=== PATIENT | female | born 1950 | race Caucasian/White ===

== ENCOUNTER → 2017-09-16 11:36 | Outpatient (CLI) | payer MEDICARE, SELFPAY ==
[2017-09-16 12:11] LABS: Add Manual Diff / Slide Review NO; Basophils Percent Auto 0.8 % (0-2); Eosinophils Percent Auto 1.5 % (2-4); Hematocrit 44.1 % (36-46); Hemoglobin 14.4 g/dL (12.0-16.0); Lymphocytes Percent Auto 20.6 % (25-40); Mean Corpuscular HGB Conc 32.7 % (30-36); Mean Corpuscular Hemoglobin 26.3 PG (26-34); Mean Corpuscular Volume 80.3 fL (80-100); Monocytes Percent Auto 6.8 % (3-14); Neutrophils Absolute Auto 6200 /uL (3000-5900); Neutrophils Percent Auto 70.3 % (50-75); Platelet Count 168 X10^3/uL (150-400); Red Blood Cell Count 5.49 X10^6/uL (4.0-5.2); Red Cell Distribution Width 18.3 % (11.6-14.8); White Blood Cell Count 8.8 X10^3/uL (4.5-11.0)
[2017-09-16 13:17] LABS: Alanine Aminotransferase 26 IU/L (9-52); Albumin 4.1 g/dL (3.5-5.0); Albumin Globulin Ratio 1.5 (1.0-2.8); Alkaline Phosphatase 100 U/L (38-126); Aspartate Aminotransferase 16 IU/L (14-36); Bilirubin Total 0.6 mg/dL (0.2-1.3); Calcium 9.4 mg/dL (8.4-10.2); Estimated Glomerular Filt Rate > 60.0 mL/min (>60); Globulin 2.7 g/dL (1.7-4.1); Glucose 120 mg/dL (80-110); HEMOLYSIS < 15 (0-50); Potassium 4.7 mmol/L (3.4-5.1); Sodium 141 mmol/L (137-145); Total Protein 6.8 g/dL (6.3-8.2)
== END ==
PROVIDERS: PCP Family Medicine; Visit Provider Nurse Practitioner Gerontology
DX: D68.59 Other primary thrombophilia (principal); D68.61 Antiphospholipid syndrome
CPT/HCPCS: 36415; 80053; 85025

== ENCOUNTER → 2017-11-05 14:31 | Outpatient (CLI) | payer MEDICARE, SELFPAY | PROVIDERS: PCP Family Medicine; Visit Provider Family Medicine | DX: E61.1 Iron deficiency (principal); E11.9 Type 2 diabetes mellitus without complications ==

== ENCOUNTER → 2017-11-06 11:39 | Outpatient (CLI) | payer MEDICARE, SELFPAY ==
[2017-11-06 12:01] LABS: Add Manual Diff / Slide Review NO; Basophils Percent Auto 1.4 % (0-2); Eosinophils Percent Auto 2.1 % (2-4); Hematocrit 45.7 % (36-46); Hemoglobin 14.9 g/dL (12.0-16.0); Lymphocytes Percent Auto 27.5 % (25-40); Mean Corpuscular HGB Conc 32.7 % (30-36); Mean Corpuscular Hemoglobin 27.7 PG (26-34); Mean Corpuscular Volume 84.7 fL (80-100); Monocytes Percent Auto 6.9 % (3-14); Neutrophils Absolute Auto 5800 /uL (3000-5900); Neutrophils Percent Auto 62.1 % (50-75); Platelet Count 161 X10^3/uL (150-400); Red Blood Cell Count 5.39 X10^6/uL (4.0-5.2); Red Cell Distribution Width 16.4 % (11.6-14.8); White Blood Cell Count 9.3 X10^3/uL (4.5-11.0)
[2017-11-06 12:17] LABS: Hemoglobin A1C% w Est Avg Glu 6.5 % (4.0-6.0)
[2017-11-06 12:24] LABS: HEMOLYSIS < 15 (0-50); Iron 67 ug/dL (37-170)
[2017-11-06 12:26] LABS: Creatinine Urine Random 91.5 mg/dL
[2017-11-06 12:32] LABS: Microalbumi Creatinin Ratio Ur 6.5 ug/mg CR (<30); Microalbumin Urine Random < 0.6 mg/dL (0-1.6)
[2017-11-06 12:34] LABS: Percent Iron Saturation 20 % (15-50); Total Iron Binding Capacity 340 ug/dL (265-497); Transferrin 274 mg/dL (206-381)
[2017-11-06 13:00] LABS: Ferritin 15.8 ng/mL (11.1-264)
== END ==
PROVIDERS: PCP Family Medicine; Visit Provider Family Medicine
DX: E61.1 Iron deficiency (principal); E11.9 Type 2 diabetes mellitus without complications
CPT/HCPCS: 36415; 82043; 82570; 82728; 83036; 83540; 83550; 85025

== ENCOUNTER → 2018-02-07 14:39 | Outpatient (CLI) | payer MEDICARE, SELFPAY ==
[2018-02-07 15:21] LABS: Add Manual Diff / Slide Review NO; Basophils Percent Auto 1.1 % (0-2); Eosinophils Percent Auto 1.8 % (2-4); Hematocrit 47.9 % (36-46); Hemoglobin 15.6 g/dL (12.0-16.0); Lymphocytes Percent Auto 18.8 % (25-40); Mean Corpuscular HGB Conc 32.5 % (30-36); Mean Corpuscular Hemoglobin 28.3 PG (26-34); Monocytes Percent Auto 6.6 % (3-14); Neutrophils Absolute Auto 6600 /uL (3000-5900); Neutrophils Percent Auto 71.7 % (50-75); Platelet Count 180 X10^3/uL (150-400); Red Blood Cell Count 5.51 X10^6/uL (4.0-5.2); Red Cell Distribution Width 14.2 % (11.6-14.8); White Blood Cell Count 9.2 X10^3/uL (4.5-11.0)
[2018-02-07 15:31] LABS: HEMOLYSIS 17 (0-50); Iron 74 ug/dL (37-170)
[2018-02-07 15:33] LABS: Hemoglobin A1C% w Est Avg Glu 6.6 % (4.0-6.0)
[2018-02-07 15:38] LABS: Creatinine Urine Random 104.9 mg/dL
[2018-02-07 15:42] LABS: Percent Iron Saturation 21 % (15-50); Total Iron Binding Capacity 353 ug/dL (265-497); Transferrin 302 mg/dL (206-381)
[2018-02-07 15:43] LABS: Microalbumi Creatinin Ratio Ur 12.3 ug/mg CR (<30); Microalbumin Urine Random 1.3 mg/dL (0-1.6)
[2018-02-07 16:15] LABS: Ferritin 20.5 ng/mL (11.1-264)
== END ==
PROVIDERS: PCP Family Medicine; Visit Provider Family Medicine
DX: E61.1 Iron deficiency (principal); E11.9 Type 2 diabetes mellitus without complications
CPT/HCPCS: 36415; 82043; 82570; 82728; 83036; 83540; 83550; 85025

== ENCOUNTER → 2018-05-10 11:55 | Outpatient (CLI) | payer MEDICARE, SELFPAY ==
[2018-05-10 12:42] LABS: Add Manual Diff / Slide Review NO; Basophils Absolute Auto 100 /uL (0-100); Basophils Percent Auto 0.8 % (0-2); Eosinophils Absolute Auto 200 /uL (0-450); Eosinophils Percent Auto 1.8 % (2-4); Hematocrit 50.8 % (36-46); Hemoglobin 16.4 g/dL (12.0-16.0); Lymphocytes Absolute Auto 2500 /uL (1100-4500); Lymphocytes Percent Auto 25.2 % (25-40); Mean Corpuscular HGB Conc 32.4 % (30-36); Mean Corpuscular Hemoglobin 28.2 PG (26-34); Mean Corpuscular Volume 87.2 fL (80-100); Monocytes Absolute Auto 600 /uL (0-900); Neutrophils Absolute Auto 6600 /uL (1500-7000); Neutrophils Percent Auto 66.2 % (50-75); Platelet Count 196 X10^3/uL (150-400); Red Blood Cell Count 5.82 X10^6/uL (4.0-5.2); White Blood Cell Count 9.9 X10^3/uL (4.5-11.0)
[2018-05-10 12:43] LABS: Hemoglobin A1C% w Est Avg Glu 6.9 % (4.0-6.0)
[2018-05-10 12:52] LABS: Alanine Aminotransferase 34 IU/L (9-52); Albumin 4.4 g/dL (3.5-5.0); Albumin Globulin Ratio 1.5 (1.0-2.8); Alkaline Phosphatase 94 U/L (38-126); Aspartate Aminotransferase 20 IU/L (14-36); Bilirubin Total 0.7 mg/dL (0.2-1.3); Blood Urea Nitrogen 11 mg/dL (7-17); Calcium 9.3 mg/dL (8.4-10.2); Carbon Dioxide 31 mmol/L (22-32); Chloride 102 mmol/L (98-107); Cholesterol 190 mg/dL (140-199); Estimated Glomerular Filt Rate > 60.0 mL/min (>60); Glucose 181 mg/dL (80-110); HDL Cholesterol 47 mg/dL (40-60); HEMOLYSIS < 15 (0-50); LDL Cholesterol Calculated 112 mg/dL (<100); Potassium 4.5 mmol/L (3.4-5.1); Sodium 141 mmol/L (137-145); Total Protein 7.4 g/dL (6.3-8.2); Triglycerides 156 mg/dL (35-150)
== END ==
PROVIDERS: PCP Family Medicine; Visit Provider Family Medicine
DX: E11.9 Type 2 diabetes mellitus without complications (principal); E55.9 Vitamin D deficiency, unspecified; E66.9 Obesity, unspecified; E78.5 Hyperlipidemia, unspecified; I10 Essential (primary) hypertension; R73.02 Impaired glucose tolerance (oral)
CPT/HCPCS: 36415; 80053; 80061; 82728; 83036; 85025

== ENCOUNTER → 2018-07-28 12:29 | Outpatient (CLI) | payer MEDICARE, SELFPAY ==
[2018-07-28 13:17] LABS: Hemoglobin A1C% w Est Avg Glu 6.5 % (4.0-6.0)
== END ==
PROVIDERS: PCP Family Medicine; Visit Provider Family Medicine
DX: E11.9 Type 2 diabetes mellitus without complications (principal)
CPT/HCPCS: 36415; 83036

== ENCOUNTER → 2018-09-12 10:59 | Outpatient (CLI) | payer MEDICARE, SELFPAY ==
--- NOTE | 2018-09-12 | DI.MG.S_ITS ---
BILATERAL DIGITAL SCREENING MAMMOGRAM 3D/2D WITH CAD: 09/12/2018 CLINICAL: Routine screening. Family history of breast cancer. Comparison is made to exams dated: 08/21/2017 mammogram, 08/27/2015 mammogram, and 08/15/2015 mammogram - [facility]. The tissue of both breasts is predominantly fatty. Current study was also evaluated with a Computer Aided Detection (CAD) system. No significant masses, calcifications, or other findings are seen in either breast. There has been no significant interval change. IMPRESSION: NEGATIVE There is no mammographic evidence of malignancy. A 1 year screening mammogram is recommended. This exam was interpreted at Station ID: [id number]. NOTE: For mammograms, a report in lay terms will be sent to the patient. Approximately 15% of breast malignancies will not be visualized mammographically. In the management of a palpable breast mass, a negative mammogram must not discourage biopsy of a clinically suspicious lesion. Electronically Signed By: Armin morgan/trell:09/12/2018 12:03:51 letter sent: Normal Exam ACR BI-RADS Category 1: Negative [id number]
== END ==
PROVIDERS: PCP Family Medicine; Visit Provider Family Medicine
DX: Z12.31 Encounter for screening mammogram for malignant neoplasm of breast (principal); Z80.3 Family history of malignant neoplasm of breast
CPT/HCPCS: 77063; 77067

== ENCOUNTER → 2019-01-06 07:00 | Outpatient (CLI) | payer MEDICARE, SELFPAY ==
[2019-01-06 07:45] LABS: Add Manual Diff / Slide Review NO; Basophils Absolute Auto 100 /uL (0-100); Basophils Percent Auto 0.7 % (0-2); Eosinophils Absolute Auto 200 /uL (0-450); Eosinophils Percent Auto 2.2 % (2-4); Hematocrit 44.6 % (36-46); Hemoglobin 14.8 g/dL (12.0-16.0); Lymphocytes Absolute Auto 2100 /uL (1100-4500); Lymphocytes Percent Auto 21.1 % (25-40); Mean Corpuscular HGB Conc 33.2 % (30-36); Mean Corpuscular Hemoglobin 28.8 PG (26-34); Mean Corpuscular Volume 86.7 fL (80-100); Monocytes Absolute Auto 900 /uL (0-900); Monocytes Percent Auto 8.5 % (3-14); Neutrophils Absolute Auto 6800 /uL (1500-7000); Neutrophils Percent Auto 67.5 % (50-75); Platelet Count 174 X10^3/uL (150-400); Red Blood Cell Count 5.15 X10^6/uL (4.0-5.2); Red Cell Distribution Width 13.5 % (11.6-14.8); White Blood Cell Count 10.1 X10^3/uL (4.5-11.0)
[2019-01-06 07:52] LABS: Hemoglobin A1C% w Est Avg Glu 6.5 % (4.0-6.0)
[2019-01-06 08:03] LABS: Blood Urea Nitrogen 12 mg/dL (7-17); Calcium 9.3 mg/dL (8.4-10.2); Carbon Dioxide 30 mmol/L (22-32); Chloride 101 mmol/L (98-107); Estimated Glomerular Filt Rate > 60.0 mL/min (>60); Glucose 144 mg/dL (80-110); HEMOLYSIS < 15 (0-50); Potassium 4.3 mmol/L (3.4-5.1); Sodium 140 mmol/L (137-145)
== END ==
PROVIDERS: PCP Family Medicine; Visit Provider Family Medicine
DX: D68.61 Antiphospholipid syndrome (principal); E11.9 Type 2 diabetes mellitus without complications; I10 Essential (primary) hypertension; R71.8 Other abnormality of red blood cells
CPT/HCPCS: 36415; 80048; 83036; 85025

== ENCOUNTER → 2019-06-10 12:03 | Outpatient (CLI) | payer MEDICARE, SELFPAY ==
[2019-06-10 13:06] LABS: Alanine Aminotransferase 21 IU/L (<35); Albumin 4.2 g/dL (3.5-5.0); Albumin Globulin Ratio 1.6 (1.0-2.8); Alkaline Phosphatase 93 U/L (38-126); Aspartate Aminotransferase 19 IU/L (14-36); BUN Creatinine Ratio 27.5 (6-22); Bilirubin Total 0.4 mg/dL (0.2-1.3); Blood Urea Nitrogen 11 mg/dL (7-17); Calcium 9.5 mg/dL (8.4-10.2); Carbon Dioxide 32 mmol/L (22-32); Chloride 103 mmol/L (98-107); Cholesterol 178 mg/dL (140-199); Estimated Glomerular Filt Rate > 60.0 mL/min (>60); Globulin 2.6 g/dL (1.7-4.1); Glucose 166 mg/dL (80-110); HDL Cholesterol 51 mg/dL (40-60); HEMOLYSIS < 15 (0-50); LDL Cholesterol Calculated 106 mg/dL (<100); Potassium 4.9 mmol/L (3.4-5.1); Sodium 141 mmol/L (137-145); Total Protein 6.8 g/dL (6.3-8.2); Triglycerides 105 mg/dL (35-150)
== END ==
PROVIDERS: PCP Family Medicine; Referring Provider Family Medicine; Visit Provider Family Medicine
DX: E78.5 Hyperlipidemia, unspecified (principal); E11.9 Type 2 diabetes mellitus without complications
CPT/HCPCS: 36415; 80053; 80061

== ENCOUNTER → 2019-09-09 10:20 | Outpatient (CLI) | payer MEDICARE, SELFPAY ==
[2019-09-09 11:00] LABS: Hemoglobin A1C% w Est Avg Glu 7.2 % (4.0-6.0)
[2019-09-09 11:06] LABS: Cholesterol 172 mg/dL (140-199); HDL Cholesterol 39 mg/dL (40-60); LDL Cholesterol Calculated 106 mg/dL (<100); Triglycerides 134 mg/dL (35-150)
[2019-09-09 13:18] LABS: Add Manual Diff / Slide Review NO; Basophils Absolute Auto 100 /uL (0-100); Basophils Percent Auto 0.8 % (0-2); Eosinophils Absolute Auto 200 /uL (0-450); Eosinophils Percent Auto 2.3 % (2-4); Hematocrit 44.3 % (36-46); Hemoglobin 14.8 g/dL (12.0-16.0); Lymphocytes Absolute Auto 2500 /uL (1100-4500); Mean Corpuscular HGB Conc 33.4 % (30-36); Mean Corpuscular Hemoglobin 29.1 PG (26-34); Mean Corpuscular Volume 87.3 fL (80-100); Monocytes Absolute Auto 600 /uL (0-900); Monocytes Percent Auto 6.4 % (3-14); Neutrophils Absolute Auto 6600 /uL (1500-7000); Neutrophils Percent Auto 65.5 % (50-75); Platelet Count 173 X10^3/uL (150-400); Red Blood Cell Count 5.08 X10^6/uL (4.0-5.2); Red Cell Distribution Width 13.2 % (11.6-14.8); White Blood Cell Count 10.1 X10^3/uL (4.5-11.0)
[2019-09-11 18:03] LABS: Ferritin 34 ng/mL (11-264)
== END ==
PROVIDERS: PCP Family Medicine; Referring Provider Family Medicine; Visit Provider Family Medicine
DX: E11.9 Type 2 diabetes mellitus without complications (principal); E66.9 Obesity, unspecified; E78.5 Hyperlipidemia, unspecified; I10 Essential (primary) hypertension; R71.8 Other abnormality of red blood cells; D68.61 Antiphospholipid syndrome; K92.1 Melena
CPT/HCPCS: 36415; 80061; 82728; 83036; 85025

== ENCOUNTER → 2019-10-17 10:15 | Outpatient (CLI) | payer MEDICARE, SELFPAY ==
[2019-10-17 11:10] LABS: Add Manual Diff / Slide Review NO; Basophils Absolute Auto 100 /uL (0-100); Basophils Percent Auto 1.3 % (0-2); Eosinophils Absolute Auto 300 /uL (0-450); Hematocrit 46.2 % (36-46); Hemoglobin 15.5 g/dL (12.0-16.0); Lymphocytes Absolute Auto 2000 /uL (1100-4500); Mean Corpuscular HGB Conc 33.5 % (30-36); Mean Corpuscular Hemoglobin 29.3 PG (26-34); Mean Corpuscular Volume 87.7 fL (80-100); Monocytes Absolute Auto 800 /uL (0-900); Monocytes Percent Auto 7.8 % (3-14); Neutrophils Absolute Auto 6800 /uL (1500-7000); Neutrophils Percent Auto 67.9 % (50-75); Platelet Count 177 X10^3/uL (150-400); Red Blood Cell Count 5.27 X10^6/uL (4.0-5.2); Red Cell Distribution Width 13.3 % (11.6-14.8); White Blood Cell Count 9.9 X10^3/uL (4.5-11.0)
[2019-10-17 11:21] LABS: HEMOLYSIS < 15 (0-50); Iron 106 ug/dL (37-170)
[2019-10-17 11:31] LABS: D Dimer 428 ng/mL (<230)
[2019-10-17 11:32] LABS: Percent Iron Saturation 31 % (15-50); Total Iron Binding Capacity 337 ug/dL (265-497); Transferrin 245 mg/dL (206-381)
== END ==
PROVIDERS: PCP Family Medicine; Referring Provider Family Medicine; Visit Provider Family Medicine
DX: D68.61 Antiphospholipid syndrome (principal); K92.1 Melena; R71.8 Other abnormality of red blood cells; D50.9 Iron deficiency anemia, unspecified; R06.00 Dyspnea, unspecified
CPT/HCPCS: 36415; 83540; 83550; 85025; 85379

== ENCOUNTER 2019-11-17 16:17 | Emergency (ER) | payer MEDICARE, SELFPAY ==
[2019-11-17] VITALS (14 sets, daily range): BP systolic 123–151; BP diastolic 56–64; PULSE 69–83; RESP 17–41; TEMP 36.7; O2SAT 89–97; BMI 39.1
--- NOTE | 2019-11-17 16:25 | DI.RAD.S_ITS ---
PROCEDURE: XR CHEST 1V INDICATIONS: chest pain TECHNIQUE: One view of the chest was acquired. COMPARISON: [facility], , CHEST 2 VIEW, 10/16/2013, 15:09. [facility], , CHEST 1 VIEW, 11/05/2011, 12:26. FINDINGS: Surgical changes and devices: None. Lungs and pleura: Lungs are mildly edematous. No pleural effusions or pneumothorax. Mediastinum: Mediastinal contours appear normal. Heart size is globally enlarged. Bones and chest wall: No suspicious bony lesions. Overlying soft tissues appear unremarkable. IMPRESSION: Acute exacerbation of chronic CHF pattern. Dictated by: Daniel Herman M.D. on 11/17/2019 at 17:15 Approved by: Daniel Herman M.D. on 11/17/2019 at 17:15
[2019-11-17 16:57] LABS: Prothrombin Time 11.5 SECONDS (10.1-12.7)
[2019-11-17 17:00] LABS: PTT Partial Thromboplastin Tim 33 SECONDS (26.4-36.2)
[2019-11-17 17:02] LABS: Add Manual Diff / Slide Review NO; Alanine Aminotransferase 19 IU/L (<35); Albumin 4.2 g/dL (3.5-5.0); Albumin Globulin Ratio 1.5 (1.0-2.8); Alkaline Phosphatase 78 U/L (38-126); Aspartate Aminotransferase 25 IU/L (14-36); BUN Creatinine Ratio 27.8 (6-22); Basophils Absolute Auto 100 /uL (0-100); Basophils Percent Auto 1.2 % (0-2); Bilirubin Total 0.7 mg/dL (0.2-1.3); Blood Urea Nitrogen 10 mg/dL (7-17); Calcium 9.3 mg/dL (8.4-10.2); Carbon Dioxide 36 mmol/L (22-32); Chloride 101 mmol/L (98-107); Creatine Kinase 30 U/L (30-135); Eosinophils Absolute Auto 200 /uL (0-450); Eosinophils Percent Auto 2.1 % (2-4); Estimated Glomerular Filt Rate > 60.0 mL/min (>60); Globulin 2.8 g/dL (1.7-4.1); Glucose 140 mg/dL (80-110); Hematocrit 44.8 % (36-46); Hemoglobin 14.7 g/dL (12.0-16.0); Lipase 40 U/L (23-300); Lymphocytes Absolute Auto 2300 /uL (1100-4500); Lymphocytes Percent Auto 21.9 % (25-40); Mean Corpuscular HGB Conc 32.8 % (30-36); Mean Corpuscular Hemoglobin 28.7 PG (26-34); Mean Corpuscular Volume 87.4 fL (80-100); Monocytes Absolute Auto 700 /uL (0-900); Monocytes Percent Auto 6.4 % (3-14); Neutrophils Absolute Auto 7100 /uL (1500-7000); Neutrophils Percent Auto 68.4 % (50-75); Platelet Count 159 X10^3/uL (150-400); Potassium 4.6 mmol/L (3.4-5.1); Red Blood Cell Count 5.13 X10^6/uL (4.0-5.2); Red Cell Distribution Width 13.5 % (11.6-14.8); Sodium 138 mmol/L (137-145); White Blood Cell Count 10.3 X10^3/uL (4.5-11.0)
[2019-11-17 17:05] LABS: HEMOLYSIS 71 (0-50)
[2019-11-17 17:15] LABS: Troponin I < 0.012 ng/mL (0.01-0.034)
--- NOTE | 2019-11-17 17:23 | PC.NURSE ---
Patient reports pressure in chest and difficulty breathing has subsided since application of 1LNC oxygen. Denies chest pressure at this time
--- NOTE | 2019-11-17 17:49 | ED_ITS ---
HPI - SOB/Dyspnea General Chief Complaint: Shortness of Breath/Dyspnea Stated Complaint: trouble breathing,fluid in lungs sent by her doc Time Seen by Provider: 11/17/19 17:48 Source: patient Mode of arrival: Ambulatory History of Present Illness HPI Narrative: CC: Shortness of breath burning of her lips and throat closing off after DuoNeb breathing treatment in Dr. Gregorio's office. HPI: The patient is a 68-year-old female who was sent to the emergency department from Dr. Gregorio's office after she was administered DuoNeb breathing treatment. The patient developed burning of her lips and a feeling that her throat was swelling and closing off which she has never experienced before. She takes DuoNeb breathing treatments at home which are generic without any problems. The patient has a history of asthma and COPD and has been short of breath for the last 2 weeks prior to admission. She only coughs when she is receiving a breathing treatment. She feels exhausted and tired as if she has no energy. For the last 3 weeks she has not been taking her home DuoNeb breathing treatments because her doctor prescribed an inhaled steroid in her nebulizer. She thought that she was supposed to be taking the steroid without taking her DuoNeb breathing treatments. The patient states that she has a family history of congestive heart failure but has never been told that she has congestive heart failure herself. She denies a history of myocardial infarction or hypertension but has a history of diabetes mellitus. She has had intermittent chest pain for the last 2 weeks prior to admission. She has no chest pain at the present time. Her cough has been dry and nonproductive of any sputum. She has had intermittent sweats but no fever chills or headache. She denies any abdominal pain nausea vomiting or diarrhea. She has had no urinary symptoms. She quit smoking cigarettes 6 years ago. She does not drink alcohol and smokes marijuana once or twice per week. At the present time the patient is feeling much better than she did on admission and in the office. Related Data Home Medications Medication Instructions Recorded Confirmed calcium carbonate [Calcium 600] 600 mg PO DAILY 09/17/17 11/17/19 coenzyme Q10 [CoQ-10] 100 mg PO DAILY 09/17/17 11/17/19 cyanocobalamin (vitamin B-12) 1,000 mcg PO DAILY 09/17/17 11/17/19 [Vitamin B-12] ferrous sulfate [Iron (ferrous 325 mg PO EVERY OTHER DAY 09/17/17 11/17/19 sulfate)] omega-3 fatty acids 1,000 mg 1,000 mg PO DAILY 11/12/17 11/17/19 capsule diphenhydramine HCl 25 mg capsule 25 mg PO BEDTIME PRN 07/29/18 11/17/19 Previous Rx's Medication Instructions Recorded ipratropium 0.5 mg-albuterol 3 mg 3 ml INHALATION Q4HP PRN #270 ea 05/25/19 (2.5 mg base)/3 mL nebulization soln nebulizers #1 each 06/08/19 pravastatin 20 mg tablet 20 mg PO BEDTIME #90 tab 06/12/19 triamcinolone acetonide 0.1 % 1 applictn TOP BID #15 gram 06/16/19 topical cream sertraline 50 mg tablet 100 mg PO QDAY #180 tab 09/11/19 budesonide 0.5 mg/2 mL suspension 0.5 mg INHALATION BID #120 ml 09/28/19 for nebulization lorazepam 0.5 mg tablet 0.5 mg PO TIDP PRN #90 tab 10/30/19 albuterol sulfate 90 mcg/actuation 2 puff INHALATION .Q 4 hours PRN 11/03/19 aerosol inhaler #6.7 gram albuterol sulfate 2.5 mg INHALATION Q4H PRN #90 ml 11/17/19 furosemide [Lasix] 20 mg PO QAM #20 tab 11/17/19 potassium chloride 20 meq PO DAILY #20 each 11/17/19 Allergies Allergy/AdvReac Type Severity Reaction Status Date / Time aspartame Allergy Severe rash, Verified 11/17/19 16:22 throat 'closes off' ibuprofen Allergy Severe FEELS LIKE Verified 11/17/19 16:22 THROAT CLOSES, RASH latex Allergy Severe SEVERE RASH Verified 11/17/19 16:22 orange Allergy Severe SWELLING - Verified 11/17/19 16:22 MANDERIAN cephalexin Allergy Mild severe Verified 11/17/19 16:22 vomiting and diarrhea pneumococcal vaccine Allergy Mild local skin Verified 11/17/19 16:22 [PNEUMOCOCCAL VACCINE] reaction tetanus immune globulin Allergy Mild LOCALIZED Verified 11/17/19 16:22 SWELLING, RASH tetanus toxoid, adsorbed AdvReac Severe SWELLING Verified 11/17/19 16:22 OF EXT, RASH bupropion AdvReac Mild UNCONTROLABLE Verified 11/17/19 16:22 CRYING nickel AdvReac Mild ITCHY RASH Verified 11/17/19 16:22 WITH METAL JEWELRY adhesive AdvReac Unknown RASH Verified 11/17/19 16:22 flu shot Allergy Mild local Uncoded 11/17/19 16:22 reaction-skin red Review of Systems Review of Systems Narrative: Her review of systems were all negative except for those mentioned in the history of present illness. Patient History Medical History Abnormal CXR (chest x-ray) (Chronic 2014) Antiphospholipid antibody syndrome (Chronic 2014) Anxiety (Chronic 1967) Asthma (Chronic 2013) Cataract (Resolved 2014) COPD (chronic obstructive pulmonary disease) (Chronic 2013) Eczema (Chronic 1964) Foot pain (Chronic) Fractures (Resolved 1975) Gastrointestinal hemorrhage (07/02/14) GI bleeding (Resolved 2014) History of heavy periods (Resolved 1991) Measles (Resolved ~1955) Mumps (Resolved ~1955) Edgerton-Schlatter's disease of both lower extremities (Resolved) Painful menstrual periods (Resolved 1991) Pancreatic pseudocyst (Acute) Pancreatitis (Resolved 2003) Psoriasis (Chronic 1973) Pulmonary embolism (Resolved 05/2014) Pulmonary thromboembolism (07/02/14) Rubella (Resolved ~1955) Shoulder pain (Chronic 1979) Tobacco use disorder (Resolved 10/26/13) Type 2 diabetes mellitus without complication, without long-term current use of insulin (05/22/16) Surgical History Anesthesia (Resolved) History of cataract surgery (Resolved 2014) History of tonsillectomy (Resolved 1955) S/P insertion of IVC (inferior vena caval) filter (Resolved 05/2014) Status post delivery (Resolved 1974) Status post delivery (Resolved 1984) Status post delivery (Resolved 1987) Status post hysterectomy (Resolved 1993) Status post laparoscopic cholecystectomy (Resolved 2006) Family History Father Lung cancer Heart disease Mother Cancer Diabetes mellitus Heart disease Grandfather MVA (motor vehicle accident) Grandmother MVA (motor vehicle accident) Grandfather No problems noted. Grandmother No problems noted. Social History Smoking Status: Former smoker Smoking Status: Former smoker Exam Narrative Exam Narrative: PHYSICAL EXAM: CONSTITUTIONAL: Awake, Alert, Oriented, Coherent, Cooperative in NAD. Does not appear toxic or ill. HEAD: AT/NC EENT: PERRL, FROM of eyes, no discharge, no nystagmus NOSE:No epistaxis or nasal drainage MOUTH:Oral mucosa is moist and pink, posterior pharynx is without erythema or exudate. There is no erythema or swelling of her lips. NECK: Supple, no obvious JVD, Trachea is midline without stridor, no palpable LN. The patient has a short neck SPINE: Palpationof the cervical, Thoracic, Lumbar or Sacral spine reveals no gross deformity or tenderness. No CVA tenderness. THORAX: No deformity, retractions, chest wall tenderness. LUNGS: The patient has inspiratory crackles in the lower 1/3 of each lung field posterior. There is no wheezes or rhonchi appreciated. HEART: Normal heart tones, regular rhythm and rate without murmur. ABDOMEN: Soft, non-tender, normal bowel sounds without guarding, rebound, rigidity or palpable mass. EXTREMITIES: There is no calf tenderness but there is 1+ pitting edema SKIN: No rash, bruising, petechiae or purpura. NEURO: Awake, alert, oriented, conversive, cranial nerves II-XII are symmetrical , moves all 4 extremities and is ambulatory. MENTAL HEALTH: Does not appear anxious or depressed. The patient appears much more comfortable. Initial Vital Signs Initial Vital Signs: Vital Signs Temperature 98.1 F 11/17/19 16:22 Pulse Rate 83 11/17/19 16:22 Respiratory Rate 18 11/17/19 16:22 Blood Pressure 151/62 H 11/17/19 16:22 Pulse Oximetry 91 11/17/19 16:22 Course Course Course Narrative: 1739: CXR revealedIMPRESSION: Acute exacerbation of chronic CHF pattern. 1936: The patient feels much better and will be discharged home. Orders Ordered: Discontinued Medications Furosemide (Lasix) 40 mg IV NOW ONE Stop: 11/17/19 18:01 Last Admin: 11/17/19 18:08 Dose: 40 mg Documented by: RMARTIN Methylprednisolone (Solu-Medrol 125 Mg Vial) 125 mg IV NOW ONE Stop: 11/17/19 18:02 Last Admin: 11/17/19 18:11 Dose: 125 mg Documented by: KIERA Vital Signs Vital signs: Vital Signs - 8 hr 11/17/19 16:22 11/17/19 16:27 11/17/19 16:30 Temperature 98.1 F Pulse Rate 83 79 78 Respiratory Rate 18 22 Blood Pressure 151/62 H Pulse Oximetry 91 93 94 11/17/19 16:31 11/17/19 17:00 11/17/19 17:03 Temperature Pulse Rate 76 76 75 Respiratory Rate 20 24 23 Blood Pressure 135/62 129/62 Pulse Oximetry 94 92 93 11/17/19 17:30 11/17/19 17:31 Temperature Pulse Rate 76 76 Respiratory Rate 23 24 Blood Pressure 125/58 L Pulse Oximetry 93 92 MDM - SOB/Dyspnea Medical Records Attestation: I reviewed the patient's medical records. Lab Data Attestation: I reviewed the patient's lab results. Result diagrams: 11/17/19 16:40 11/17/19 16:40 Labs: Lab Results 11/17/19 11/17/19 11/17/19 Range/Units 16:40 16:40 16:40 WBC 10.3 (4.5-11.0) X10^3/uL RBC 5.13 (4.0-5.2) X10^6/uL Hgb 14.7 (12.0-16.0) g/dL Hct 44.8 (36-46) % MCV 87.4 (80-100) fL MCH 28.7 (26-34) PG MCHC 32.8 (30-36) % RDW 13.5 (11.6-14.8) % Plt Count 159 (150-400) X10^3/uL Neut % (Auto) 68.4 (50-75) % Lymph % (Auto) 21.9 L (25-40) % [place] % (Auto) 6.4 (3-14) % Eos % (Auto) 2.1 (2-4) % Baso % (Auto) 1.2 (0-2) % Neut # (Auto) 7100 H (7326-2206) /uL Lymph # (Auto) 2300 (0543-5899) /uL [place] # (Auto) 700 (0-900) /uL Eos # (Auto) 200 (0-450) /uL Baso # (Auto) 100 (0-100) /uL PT 11.5 (10.1-12.7) SECONDS INR 1.0 (0.9-1.3) APTT 33 (26.4-36.2) SECONDS Sodium 138 (137-145) mmol/L Potassium 4.6 (3.4-5.1) mmol/L Chloride 101 (98-107) mmol/L Carbon Dioxide 36 H (22-32) mmol/L BUN 10 (7-17) mg/dL Creatinine 0.36 L (0.52-1.04) mg/dL Estimated GFR > 60.0 (>60) mL/min BUN/Creatinine Ratio 27.8 H (6-22) Glucose 140 H (80-110) mg/dL Calcium 9.3 (8.4-10.2) mg/dL Total Bilirubin 0.7 (0.2-1.3) mg/dL AST 25 (14-36) IU/L ALT 19 (<35) IU/L Alkaline Phosphatase 78 (38-126) U/L Total Creatine Kinase 30 (30-135) U/L CK-MB (CK-2) TNP CK-MB (CK-2) Rel Index TNP Troponin I < 0.012 (0.01-0.034) ng/mL NT-Pro-B Natriuret Pep (<125) pg/mL Total Protein 7.0 (6.3-8.2) g/dL Albumin 4.2 (3.5-5.0) g/dL Globulin 2.8 (1.7-4.1) g/dL Albumin/Globulin Ratio 1.5 (1.0-2.8) Lipase 40 (23-300) U/L // Range/Units 16:40 WBC (4.5-11.0) X10^3/uL RBC (4.0-5.2) X10^6/uL Hgb (12.0-16.0) g/dL Hct (36-46) % MCV (80-100) fL MCH (26-34) PG MCHC (30-36) % RDW (11.6-14.8) % Plt Count (150-400) X10^3/uL Neut % (Auto) (50-75) % Lymph % (Auto) (25-40) % [place] % (Auto) (3-14) % Eos % (Auto) (2-4) % Baso % (Auto) (0-2) % Neut # (Auto) (4542-8749) /uL Lymph # (Auto) (1659-8611) /uL [place] # (Auto) (0-900) /uL Eos # (Auto) (0-450) /uL Baso # (Auto) (0-100) /uL PT (10.1-12.7) SECONDS INR (0.9-1.3) APTT (26.4-36.2) SECONDS Sodium (137-145) mmol/L Potassium (3.4-5.1) mmol/L Chloride (98-107) mmol/L Carbon Dioxide (22-32) mmol/L BUN (7-17) mg/dL Creatinine (0.52-1.04) mg/dL Estimated GFR (>60) mL/min BUN/Creatinine Ratio (6-22) Glucose (80-110) mg/dL Calcium (8.4-10.2) mg/dL Total Bilirubin (0.2-1.3) mg/dL AST (14-36) IU/L ALT (<35) IU/L Alkaline Phosphatase (38-126) U/L Total Creatine Kinase (30-135) U/L CK-MB (CK-2) CK-MB (CK-2) Rel Index Troponin I (0.01-0.034) ng/mL NT-Pro-B Natriuret Pep 164 H (<125) pg/mL Total Protein (6.3-8.2) g/dL Albumin (3.5-5.0) g/dL Globulin (1.7-4.1) g/dL Albumin/Globulin Ratio (1.0-2.8) Lipase (23-300) U/L ECG Data Attestation: I personally reviewed and interpreted this ECG as follows: Interpretation: The patient's EKG obtained at 4:28 p.m. reveals a normal sinus rhythm with a ventricular rate of 77. Intervals are normal except for the QRS is prolonged at 128 milliseconds. QTC is prolonged at 488 milliseconds. The patient has right axis deviation. There is no acute diagnostic ST segment fercho nges. The patient has T-wave inversions in leads V1. Patient has biphasic T- wave in V2. The patient has a noisy baseline with artifact in V3 and V6. T- waves are flat in lead III. The patient has a right bundle branch block pattern. Discharge Plan Departure Patient Disposition: Home Clinical Impression: Anxiety, COPD exacerbation Dyspnea Qualifiers: Dyspnea type: shortness of breath Qualified Code(s): R06.02 - Shortness of breath CHF (congestive heart failure) Qualifiers: Heart failure type: unspecified Heart failure chronicity: unspecified Qualified Code(s): I50.9 - Heart failure, unspecified Pulmonary edema Qualifiers: Chronicity: acute Qualified Code(s): J81.0 - Acute pulmonary edema Discharge Date/Time: 11/17/19 20:17 Instructions: DI for Heart Failure, DI for Chronic Obstructive Pulmonary Disease Activity Restrictions/Additional Instructions: 1. Follow-up with your primary care physician to be re-evaluated in the next 48- 72 hours. 2. Return to the emergency department if you develop worsening shortness of breath, chest pain, feeling faint, passing out, developing high fever or persistent nausea and vomiting such that you are unable to keep her medications down. 3. Take your DuoNeb breathing treatment every 4-6 hours. 4. Take the inhaled steroid per your nebulizer as prescribed by Dr. Gregorio 5. For continued shortness of breath, wheezing or coughing in between your DuoNeb breathing treatments and steroid treatments you can take albuterol as needed every 2-4 hours. 6. As shown when you develop swelling of your ankles with pitting take 20 mg of Lasix and 20 mEq of potassium chloride. When you do not have any pitting of your legs stop taking the Lasix. If you are taking the Lasix you must limit your fluid intake to 2 L per day. 7. Return at any time to the emergency department. Prescriptions: New albuterol sulfate 2.5 mg /3 mL (0.083 %) solution for nebulization 2.5 mg INHALATION Q4H PRN (Reason: shortness of breath or wheezing) Qty: 90 RF: 0 furosemide [Lasix] 20 mg tablet 20 mg PO QAM Qty: 20 RF: 1 potassium chloride 20 mEq packet 20 meq PO DAILY Qty: 20 RF: 1 No Action ipratropium-albuterol 0.5 mg-3 mg(2.5 mg base)/3 mL solution for nebulization 3 ml Inhalation Q4HP PRN (Reason: wheezing) Qty: 270 RF: 2 (DME) AeroEclipse II Nebulizer Misc See Rx Instructions .ROUTE .MEDSUPPLY Qty: 1 RF: 0 triamcinolone acetonide 0.1 % cream 1 applictn TOP BID Qty: 15 RF: 0 budesonide 0.5 mg/2 mL suspension for nebulization 0.5 mg INHALATION BID Qty: 120 RF: 1 lorazepam [Ativan] 0.5 mg tablet 0.5 mg PO TIDP PRN (Reason: anxiety) Qty: 90 RF: 0 albuterol sulfate [Proventil HFA] 90 mcg/actuation HFA aerosol inhaler 2 puff Inhalation .Q 4 hours PRN (Reason: shortness of breath) Qty: 6.7 RF: 3 omega-3 fatty acids [Fish Oil Concentrate] 1,000 mg capsule 1,000 mg PO DAILY RF: 0 diphenhydramine HCl [Benadryl] 25 mg capsule 25 mg PO BEDTIME PRNRF: 0 pravastatin 20 mg tablet 20 mg PO BEDTIME Qty: 90 RF: 3 sertraline 50 mg tablet 100 mg PO QDAY Qty: 180 RF: 4 cyanocobalamin (vitamin B-12) [Vitamin B-12] 1,000 mcg Tablet 1,000 mcg PO DAILY RF: 0 coenzyme Q10 [CoQ-10] 100 mg Capsule 100 mg PO DAILY RF: 0 calcium carbonate [Calcium 600] 600 mg calcium (1,500 mg) Tablet 600 mg PO DAILY RF: 0 ferrous sulfate [Iron (ferrous sulfate)] 325 mg (65 mg iron) Tablet 325 mg PO EVERY OTHER DAY RF: 0 Referrals: Jaleesa Gregorio DO [Primary Care Provider] -
[2019-11-17] MEDS: FUROSEMIDE 40 MG/4 ML VIAL IV (18:08)
[2019-11-17] MEDS: methylPREDNISolone 125 MG/2 ML VIAL IV (18:11)
[2019-11-17 18:18] LABS: NT-proBNP (BNP-Adult 18+) 164 pg/mL (<125)
== END 2019-11-17 20:17 | disposition home or self-care (01) ==
PROVIDERS: Emergency Provider Emergency Medicine; PCP Family Medicine
DX: I50.9 Heart failure, unspecified (principal); J44.1 Chronic obstructive pulmonary disease with (acute) exacerbation; R06.00 Dyspnea, unspecified; F41.9 Anxiety disorder, unspecified; J81.0 Acute pulmonary edema
CPT/HCPCS: 36415; 71045; 80053; 82550; 83690; 83880; 84484; 85025; 85610; 85730; 93005; 96374; 96375; 99284; 99285; J1940; J2930

== ENCOUNTER → 2019-12-14 14:49 | Outpatient (CLI) | payer MEDICARE, SELFPAY ==
--- NOTE | 2019-12-14 14:52 | DI.MG.S_ITS ---
BILATERAL DIGITAL SCREENING MAMMOGRAM 3D/2D WITH CAD: 12/14/2019 CLINICAL: Routine screening. Family history of breast cancer. Comparison is made to exams dated: 09/12/2018 mammogram, 08/21/2017 mammogram, and 08/15/2015 mammogram - [facility]. The tissue of both breasts is predominantly fatty. Current study was also evaluated with a Computer Aided Detection (CAD) system. No significant masses, calcifications, or other findings are seen in either breast. There has been no significant interval change. IMPRESSION: NEGATIVE There is no mammographic evidence of malignancy. A 1 year screening mammogram is recommended. This exam was interpreted at Station ID: [id number]. NOTE: For mammograms, a report in lay terms will be sent to the patient. Approximately 15% of breast malignancies will not be visualized mammographically. In the management of a palpable breast mass, a negative mammogram must not discourage biopsy of a clinically suspicious lesion. Electronically Signed By: Claribel carroll/trell:12/14/2019 15:44:56 letter sent: Normal Exam ACR BI-RADS Category 1: Negative [id number]
== END ==
PROVIDERS: PCP Family Medicine; Referring Provider Family Medicine; Visit Provider Family Medicine
DX: Z12.31 Encounter for screening mammogram for malignant neoplasm of breast (principal); Z80.3 Family history of malignant neoplasm of breast
CPT/HCPCS: 77063; 77067

== ENCOUNTER → 2020-01-05 15:45 | Outpatient (CLI) | payer MEDICARE, SELFPAY ==
--- NOTE | 2020-01-05 16:29 | DI.ECHO.S_ITS ---
Echocardiogram Report + + :Name: EARNESTINE QUINTANILLA Study Date: 01/05/2020 Height: 64 in : :[facility] Weight: 221 lb : : Gender: Female BSA: 2.0 m2 : :: 1950 Age: 69 yrs BP: 152/77 mmHg: :Reason For Study: HEART FAILURE : : Performed By: Adia Broderick : :Referring: ADRIANA JOYA : + + Interpretation Summary 1) Normal left ventricular size, thickness, and systolic function (EF 60-65%). 2) The right ventricle is mildly dilated. Right ventricular systolic function is mildly reduced. 3) Mild aortic stenosis present (valve area 1.6cm2, mean gradient 8mmHg, severity ratio 0.6). 4) The right ventricular systolic pressure is estimated to be at least 49 mmHg based on an estimated right atrial pressure of 3 mm Hg. 5) Compared to the Echo done 06/04/2014, systolic PA pressures has decreased from 115mmHg to 49mmHg on this study. Procedure: A two-dimensional transthoracic echocardiogram with color flow and Doppler was performed. The study quality was technically adequate. Comparison is made with the echocardiogram of 06/04/2014. The patient had a bundle branch block rhythm during the exam. The patient was in normal sinus rhythm during the exam. Left Ventricle: The left ventricle is normal in size. There is normal left ventricular wall thickness. The ejection fraction is estimated to be 60-65%. There are no obvious focal wall motion abnormalities noted but poor endocardial definition reduces the sensitivity for the detection of such. The interventricular septum is flattened, consistent with a right ventricular pressure overload condition. Right Ventricle: The right ventricle is mildly dilated. Right ventricular systolic function is mildly reduced. Atria: There is mild biatrial enlargement. Mitral Valve: There is mild mitral annular calcification. There is trace mitral regurgitation. Aortic Valve: The aortic valve is not well visualized. There is mild aortic stenosis. No aortic regurgitation is present. Tricuspid Valve: The tricuspid valve is not well visualized, but is grossly normal. There is trace tricuspid regurgitation. The right ventricular systolic pressure is estimated to be at least 49 mmHg based on an estimated right atrial pressure of 3 mm Hg. Pulmonic Valve: The pulmonic valve is not well visualized. There is a trace or physiologic amount of pulmonic regurgitation. Great Vessels: The aortic root is not well visualized but is probably normal size. The ascending aorta is normal in size. The aortic arch could not be visualized. The IVC is of normal diameter and collapses greater than 50% with a sniff. This suggests a low right atrial pressure of 3 mm Hg. Pericardium/ Pleura There is no pericardial effusion. MMode/2D Measurements & Calculations LVIDd: 5.2 cm LVOT diam: 1.7 cm LVIDs: 3.7 cm asc Aorta Diam: 3.0 cm FS: 27.5 % IVSd: 0.87 cm LVPWd: 0.78 cm LV caal. diameter/BSA (cm/m^2): 2.5 LV sys. diameter/BSA (cm/m^2): 1.8 LA A2 area: 20.7 cm2 RA long axis: 5.6 cm LA A4 area: 20.0 cm2 RA area: 19.9 cm2 LA length (vol): 5.9 cm RA vol: 60.7 ml LA vol: 59.4 ml RA : 29.7 ml/m2 LA vol index: 29.1 ml/m2 IVC diam: 2.1 cm RVD1 (basal): 3.8 cm RVD2 (mid): 2.7 cm TAPSE: 2.5 cm Doppler Measurements & Calculations Ao V2 max: 192.1 cm/sec LVOT Max Neymar: 130.3 cm/sec Ao V2 mean: 139.5 cm/sec LV V1 max P.8 mmHg Ao max P.8 mmHg LV V1 VTI: 27.9 cm Ao mean P.3 mmHg JUSTIN(I,D): 1.4 cm2 Ao V2 VTI: 46.6 cm JUSTIN(V,D): 1.6 cm2 sev ratio: 0.60 JUSTIN indexed to BSA (cm^2/m^2): 0.68 MV E max neymar: 84.7 cm/sec TR max neymar: 337.9 cm/sec MV A max neymar: 81.5 cm/sec TR max P.7 mmHg MV E/A: 1.0 PA V2 max: 109.9 cm/sec Med Peak E' Neymar: 5.5 cm/sec PA V2 mean: 72.2 cm/sec E/E' med: 15.3 PA mean P.3 mmHg Lat Peak E' Neymar: 8.6 cm/sec PA Accel Time: 0.08 sec E/E' lat: 9.8 E/e' average: 12.6 MV dec time: 0.19 sec MV P1/2t: 57.1 msec MV P1/2t max neymar: 84.3 cm/sec SV(LVOT): 64.6 ml MVA(P1/2t): 3.9 cm2 Reading Physician:10:19 AM
== END ==
PROVIDERS: PCP Family Medicine; Referring Provider Family Medicine; Visit Provider Family Medicine
DX: I35.0 Nonrheumatic aortic (valve) stenosis (principal); I50.9 Heart failure, unspecified; J44.1 Chronic obstructive pulmonary disease with (acute) exacerbation
CPT/HCPCS: 93306

== ENCOUNTER → 2020-01-25 12:38 | Outpatient (CLI) | payer MEDICARE, SELFPAY ==
[2020-01-25 13:43] LABS: Add Manual Diff / Slide Review NO; Basophils Absolute Auto 100 /uL (0-100); Basophils Percent Auto 1.1 % (0-2); Eosinophils Absolute Auto 400 /uL (0-450); Eosinophils Percent Auto 3.5 % (2-4); Hematocrit 46.2 % (36-46); Lymphocytes Absolute Auto 1900 /uL (1100-4500); Lymphocytes Percent Auto 16.9 % (25-40); Mean Corpuscular HGB Conc 32.5 % (30-36); Mean Corpuscular Hemoglobin 28.4 PG (26-34); Mean Corpuscular Volume 87.2 fL (80-100); Monocytes Absolute Auto 700 /uL (0-900); Monocytes Percent Auto 6.4 % (3-14); Neutrophils Absolute Auto 7900 /uL (1500-7000); Neutrophils Percent Auto 72.1 % (50-75); Platelet Count 176 X10^3/uL (150-400); Red Blood Cell Count 5.29 X10^6/uL (4.0-5.2); Red Cell Distribution Width 13.7 % (11.6-14.8)
[2020-01-25 13:52] LABS: Alanine Aminotransferase 18 IU/L (<35); Albumin 4.1 g/dL (3.5-5.0); Albumin Globulin Ratio 1.6 (1.0-2.8); Alkaline Phosphatase 99 U/L (38-126); Aspartate Aminotransferase 18 IU/L (14-36); BUN Creatinine Ratio 31.1 (6-22); Bilirubin Total 0.7 mg/dL (0.2-1.3); Blood Urea Nitrogen 14 mg/dL (7-17); Calcium 9.2 mg/dL (8.4-10.2); Carbon Dioxide 30 mmol/L (22-32); Chloride 102 mmol/L (98-107); Cholesterol 174 mg/dL (140-199); Estimated Glomerular Filt Rate > 60.0 mL/min (>60); Globulin 2.6 g/dL (1.7-4.1); Glucose 181 mg/dL (80-110); HDL Cholesterol 51 mg/dL (40-60); HEMOLYSIS 17 (0-50); LDL Cholesterol Calculated 95 mg/dL (<100); Sodium 138 mmol/L (137-145); Total Protein 6.7 g/dL (6.3-8.2); Triglycerides 139 mg/dL (35-150)
[2020-01-25 14:05] LABS: Hemoglobin A1C% w Est Avg Glu 7.3 % (4.0-6.0)
== END ==
PROVIDERS: PCP Family Medicine; Referring Provider Family Medicine; Visit Provider Family Medicine
DX: D50.9 Iron deficiency anemia, unspecified (principal); E11.9 Type 2 diabetes mellitus without complications; E78.5 Hyperlipidemia, unspecified; I10 Essential (primary) hypertension; J44.9 Chronic obstructive pulmonary disease, unspecified
CPT/HCPCS: 36415; 80053; 80061; 83036; 85025

== ENCOUNTER → 2020-05-18 11:53 | Outpatient (CLI) | payer MEDICARE, SELFPAY ==
[2020-05-18 12:21] LABS: Hemoglobin A1C% w Est Avg Glu 7.4 % (4.0-6.0)
[2020-05-18 12:43] LABS: BUN Creatinine Ratio 34.3 (6-22); Blood Urea Nitrogen 12 mg/dL (7-17); Calcium 9.1 mg/dL (8.4-10.2); Carbon Dioxide 33 mmol/L (22-32); Chloride 101 mmol/L (98-107); Estimated Glomerular Filt Rate > 60.0 mL/min (>60); Glucose 166 mg/dL (80-110); HEMOLYSIS 16 (0-50); Potassium 4.3 mmol/L (3.4-5.1); Sodium 138 mmol/L (137-145)
== END ==
PROVIDERS: PCP Family Medicine; Referring Provider Family Medicine; Visit Provider Family Medicine
DX: E11.9 Type 2 diabetes mellitus without complications (principal); I10 Essential (primary) hypertension
CPT/HCPCS: 36415; 80048; 83036

== ENCOUNTER → 2020-06-19 13:43 | Outpatient (CLI) | payer MEDICARE, SELFPAY ==
--- NOTE | 2020-06-19 15:15 | DIET.PN ---
Diabetes Intake: Initial Assessment Assess: Ms. Richards is a 69 yof referred for newly diagnosed type 2 diabetes. She has had diabetes for several years and has a pmhx significant for COPD and CHF. She was diagnosed with pancreatitis 16yrs ago and has a h/o hypoglycemia in her teen years. Since diagnosis she has started making dietary changes and has been monitoring her bg 3-4x/day. She is unable to exercise due to severe difficulty breathing with exertion. Labs: Per pt report: A1c: 7.4 FB-200 2hr PP: 1115-240 Meds: tried metformin Diet: per 24 hr recall: B: boiled eggs, toast (cut out OJ) L: 1/2 sandwich (tuna/salami) D: teriaki; pasta w/ pro and veggies Sn: popcorn, 1/2 can soda; cookies Wt: 221lb Ht: 62in BMI: 40.5 Goal wt: 169lb BP: 138/76 DX: Altered nutrition related laboratory values related to impaired glucose metabolism, lack of previous exposure to nutrition information as evidenced by pt report, diagnosis of diabetes, previous diet high in refined carbohydrates. Intervention: 1. Completed intake assessment. Discussed barriers to care. 2. Discussed pathophysiology of diabetes. Reviewed A1c and its correlation to blood glucose numbers. Discussed recommended BG ranges. 3. Discussed importance of self-monitoring, how often, and when to check. 4. Reviewed hyper/hypoglycemia and treatment. 5. Reviewed safe disposal of equipment (strip/lancets/insulin needles). 6. Created SMART goals for pt self-care and success. 7. Discussed program curriculum outline and class needs based on individual goals. SMART Goals: 1. Pt goal A1c of <7.0 and weight of 170lb in the next 6 mo through attention to better eating patterns including carb counting, portion control, and regular exercise. Monitor/Evaluate: Pt will attend full DSME program. Basic Nutrition class scheduled for jul 02.
== END ==
PROVIDERS: PCP Family Medicine; Referring Provider Family Medicine; Visit Provider Family Medicine
DX: E11.9 Type 2 diabetes mellitus without complications (principal)
CPT/HCPCS: G0108

== ENCOUNTER → 2020-06-25 13:46 | Outpatient (CLI) | payer MEDICARE, SELFPAY ==
--- NOTE | 2020-06-25 16:15 | DIET.PN ---
Diabetes Exercise/Lifestyle change: 1. Importance of exercise 2. FITT (frequency, intensity, time, type) 3. Strength training tips and guidelines 4. Glucose monitoring/ranges before and after a. Carbohydrate needs based on glucose ranges and duration/intensity of exercise b. Rule of 15 5. Proper foot attire 6. Developing strategies for behavior change 7. SMART Goal Setting 8. Home exercise routine demonstration (as a class)
== END ==
PROVIDERS: PCP Family Medicine; Referring Provider Family Medicine; Visit Provider Family Medicine
DX: E11.9 Type 2 diabetes mellitus without complications (principal); Z71.3 Dietary counseling and surveillance
CPT/HCPCS: G0109

== ENCOUNTER → 2020-07-02 13:47 | Outpatient (CLI) | payer MEDICARE, SELFPAY ==
--- NOTE | 2020-07-02 15:37 | DIET.PN ---
Diabetes: Healthy Eating 1 Intervention: ? Discussed pathophysiology of diabetes and impact of nutrition/diet on blood sugar control.? Discussed fed versus non-fed state.?? ? Reviewed importance of Balance, Variety, and Moderation. ? Discussed the effect of carbohydrates/protein/fat on blood sugar control.? ? Stressed importance of consistent carbohydrate intake at each meal and provided instructions for recommended servings/portions of carbohydrates/protein per meal. Provided educational material. ? Reviewed carbohydrate counting and measuring carbohydrate content via serving sizes and reading nutrition labels.? Provided handouts.?? ? Discussed the difference between simple versus complex carbohydrates and the effect of fiber on blood sugar control.? Discussed various methods to increase fiber content in diet. ? Discussed the plate method for creating more carbohydrate conscious balanced meals. ? Stressed importance of meal timing and not going >4-5 hours between meals. Encouraged adding protein to evening snack to support glucose control overnight. ? Discussed importance of making dietary habits part of lifestyle change.
== END ==
PROVIDERS: PCP Family Medicine; Referring Provider Family Medicine; Visit Provider Family Medicine
DX: E11.9 Type 2 diabetes mellitus without complications (principal); Z71.3 Dietary counseling and surveillance
CPT/HCPCS: G0109

== ENCOUNTER → 2020-07-09 13:52 | Outpatient (CLI) | payer MEDICARE, SELFPAY ==
--- NOTE | 2020-07-09 16:21 | DIET.PN ---
Diabetes: Healthy Eating 2 Intervention: Fats effects on glucose, weight, heart disease, cholesterol Sat Vs Unsat Protein- animal and plant based options Low, med, high fat meats Sugar substitutes Sodium Health claims Grocery shopping guidelines Eating away from home Alcohol Sick day guidelines Ketone Testing
== END ==
PROVIDERS: PCP Family Medicine; Referring Provider Family Medicine; Visit Provider Family Medicine
DX: E11.9 Type 2 diabetes mellitus without complications (principal); Z71.3 Dietary counseling and surveillance
CPT/HCPCS: G0109

== ENCOUNTER → 2020-07-16 13:49 | Outpatient (CLI) | payer MEDICARE, SELFPAY ==
--- NOTE | 2020-07-16 16:55 | DIET.PN ---
Diabetes Physiology: Intervention 1. Diabetes physiology 2. Detecting and treatment of acute and chronic complications 3. Diagnosis of and difference in types of diabetes 4. Self-monitoring and pattern management a. Demonstrate glucometer and control testing b. Explain BG results and action to take when out of range. 5. Foot , eye, dental care 6. Medications a. Oral medication classification b. Injectable c. Insulin i. Injection protocol ii. Other delivery methods
== END ==
PROVIDERS: PCP Family Medicine; Referring Provider Family Medicine; Visit Provider Family Medicine
DX: E11.9 Type 2 diabetes mellitus without complications (principal); Z71.3 Dietary counseling and surveillance
CPT/HCPCS: G0109

== ENCOUNTER → 2020-07-24 13:31 | Outpatient (CLI) | payer MEDICARE, SELFPAY ==
--- NOTE | 2020-07-24 14:51 | DIET.PN ---
DIABETES Nutrition Initial Assessment:? ASSESS:?? Ms. Richards is a 69 yof?referred for type 2 diabetes seen as part of DSME program. Pt glucose is gradually coming down. Reports eating fewer carbs, but endorses increased fat intake. Has not started exercising yet, but is open to starting Simeon Chi or some other form of body flow. ??? LABS: Per pt report:? FB-200 2hr PP: 97-233 ? MEDS:?? none at this time ? DIET: Per 24-hour recall:? Eating Out: 2x/wk Changes in Appetite: reduced portions Nutrition Supplements: apple cider vinegar, cinnamon, vitamin D ? Weight: 219lb Height: 62in BMI: ? 40.1 ? Exercise:? starting Simeon Chi NUTRITION DX 1. Altered Nutrition related labs related to impaired glucose metabolism, lack of previous exposure to accurate nutrition information as evidenced by pt report, dx of diabetes, previous diet high in refined carbohydrates.? INTERVENTION(s): 1. Reviewed pathophysiology of diabetes and impact of nutrition/diet on blood sugar control.? Discussed fed versus non-fed state.?? 2. Discussed the effect of carbohydrates/protein/fat on blood sugar control.? Stressed importance of consistent carbohydrate intake at each meal and provided instructions for recommended servings/portions of carbohydrates/protein per meal. Provided pt with educational material. 3. Reviewed carbohydrate counting and measuring carbohydrate content via serving sizes and reading nutrition labels.? Provided handouts.?? 4. Discussed the difference between simple versus complex carbohydrates and the effect of fiber on blood sugar control.? Discussed various methods to increase fiber content in diet. 5. Stressed importance of meal timing and not going >4-5 hours between meals. Encouraged adding protein to evening snack to support glucose control overnight. Patient agreeable. 6. Discussed healthy weight loss goals of 1-2lbs per week through diet and exercise.? Pt agreeable to walking at least 30 minutes daily. 7. Recommend monitoring fasting and alternating 2 hr PP mealtime glucose. MONITOR/EVALUATE: Anticipate good compliance.? Nutrition follow-up scheduled for 1 month.
== END ==
PROVIDERS: PCP Family Medicine; Referring Provider Family Medicine; Visit Provider Family Medicine
DX: E11.9 Type 2 diabetes mellitus without complications (principal)
CPT/HCPCS: G0109

== ENCOUNTER → 2020-08-15 15:05 | Outpatient (CLI) | payer MEDICARE, SELFPAY ==
[2020-08-15 17:47] LABS: BUN Creatinine Ratio 26.2 (6-22); Blood Urea Nitrogen 11 mg/dL (7-17); Calcium 9.5 mg/dL (8.4-10.2); Carbon Dioxide 33 mmol/L (22-32); Chloride 102 mmol/L (98-107); Estimated Glomerular Filt Rate > 60.0 mL/min (>60); Glucose 112 mg/dL (80-110); HEMOLYSIS < 15 (0-50); Hemoglobin A1C% w Est Avg Glu 7.1 % (4.0-6.0); Potassium 4.3 mmol/L (3.4-5.1); Sodium 140 mmol/L (137-145)
[2020-08-15 17:48] LABS: Creatinine Urine Random 68.1 mg/dL
[2020-08-15 17:53] LABS: Microalbumi Creatinin Ratio Ur 33.7 ug/mg CR (<30); Microalbumin Urine Random 2.3 mg/dL (0-1.6)
== END ==
PROVIDERS: PCP Family Medicine; Referring Provider Family Medicine; Visit Provider Family Medicine
DX: E11.9 Type 2 diabetes mellitus without complications (principal); I10 Essential (primary) hypertension
CPT/HCPCS: 36415; 80048; 82043; 82570; 83036

== ENCOUNTER → 2020-08-28 14:58 | Outpatient (CLI) | payer MEDICARE, SELFPAY ==
--- NOTE | 2020-08-28 15:41 | DIET.PN ---
Diabetes Follow Up Assess: Ms. Richards is here for her 3 mo follow up visit. She has been working on portion sizes, carb counting and increased vegetables. Recently bought a food scale which has helped with her calorie goals. She is discouraged with her lack of weight loss, but her glucose numbers have continued to decrease as well as her overall A1c. Labs: A1c: 7.1 Fastin-150 2hr lunch: <130 Meds: none at this time Dietary changes: smaller portions, reading labels, carb counting Ht: 62in Wt: 219lb BMI: 40.1 Nutrition DX: Altered nutrition related laboratory values related to impaired glucose metabolism, lack of previous exposure to nutrition information as evidenced by pt report, diagnosis of diabetes, previous diet high in refined carbohydrates. Intervention: 1. Completed follow up assessment. Reviewed barriers to care. 2. Reviewed new labs and importance of continued BG monitoring. 3. Reviewed SMART goals and made modifications where appropriate including wt management, activity, and A1c goals. 4. Discussed plan for ongoing support. Provided information for continued support and success. SMART goals: 1. Goal weight 169 through cont dietary changes, incorporating calorie counting, and increasing anival chi. Monitor/Evaluate: Pt will follow up in 3 mo to discuss new labs and barriers to care.
== END ==
PROVIDERS: PCP Family Medicine; Referring Provider Family Medicine; Visit Provider Family Medicine
DX: E11.9 Type 2 diabetes mellitus without complications (principal)
CPT/HCPCS: G0109

== ENCOUNTER → 2020-12-19 15:38 | Outpatient (CLI) | payer MEDICARE, SELFPAY ==
[2020-12-19 16:44] LABS: Hemoglobin A1C% w Est Avg Glu 6.3 % (4.0-6.0)
[2020-12-19 16:58] LABS: Creatinine Urine Random 141.4 mg/dL
[2020-12-19 17:04] LABS: Microalbumi Creatinin Ratio Ur 11.3 ug/mg CR (<30); Microalbumin Urine Random 1.6 mg/dL (0-1.6)
== END ==
PROVIDERS: PCP Family Medicine; Referring Provider Family Medicine; Visit Provider Family Medicine
DX: E11.9 Type 2 diabetes mellitus without complications (principal); I10 Essential (primary) hypertension
CPT/HCPCS: 36415; 82043; 82570; 83036

== ENCOUNTER → 2021-01-15 15:24 | Outpatient (CLI) | payer MEDICARE, SELFPAY ==
[2021-01-15 16:31] LABS: COVID19 -Nasal RAPID Negative (Negative)
== END ==
PROVIDERS: PCP Family Medicine; Referring Provider Internal Medicine; Visit Provider Internal Medicine
DX: Z20.822 Contact with and (suspected) exposure to COVID-19 (principal)
CPT/HCPCS: 87635; C9803

== ENCOUNTER → 2021-01-16 14:31 | Outpatient (CLI) | payer MEDICARE, SELFPAY ==
--- NOTE | 2021-01-22 09:58 | PM.PFT.1 ---
Pulmonary Function Test Referral & Results Date Patient Seen: 01/16/21 Requesting provider: Jaleesa Gregorio Results: The spirometry demonstrates an FVC of 1.04 L which is 35% of predicted. The FEV1 was measured at 0.62 L which is 27% of predicted. The FEV1/FVC ratio 59which is 78% of predicted. Following the administration of bronchodilator there was a 33% improvement in FEV1 and a 119% improvement in FEF 25-75% Lung volumes show an SVC of 1.44 L which is 50% of predicted. The diffusing capacity was measured at 15.72 which is 64% of predicted. The maximum voluntary ventilation was severely reduced Interpretation: This study demonstrates severe obstructive lung disease with FEV1 of only 0.62 L. There is evidence of significant benefit following bronchodilator as above There is also moderately severe reduction in lung volumes suggesting moderately severe restrictive lung disease There is also a mild reduction in diffusing capacity suggesting moderate disease at the capillary alveolar level Compared to PFTs performed in October 2013, current study shows decline in FEV1 which was previously at 1.05 L currently at 0.62 L. Other numbers are essentially unchanged
== END ==
PROVIDERS: PCP Family Medicine; Referring Provider Family Medicine; Visit Provider Family Medicine
DX: J44.9 Chronic obstructive pulmonary disease, unspecified (principal); Z87.891 Personal history of nicotine dependence
CPT/HCPCS: 94060; 94726; 94729

== ENCOUNTER → 2021-06-17 09:04 | Outpatient (CLI) | payer MEDICARE, SELFPAY ==
[2021-06-17 09:19] LABS: Add Manual Diff / Slide Review NO; Basophils Absolute Auto 100 /uL (0-100); Basophils Percent Auto 0.8 % (0-2); Eosinophils Absolute Auto 100 /uL (0-450); Eosinophils Percent Auto 1.6 % (2-4); Hematocrit 47.2 % (36-46); Hemoglobin 15.4 g/dL (12.0-16.0); Lymphocytes Absolute Auto 1800 /uL (1100-4500); Lymphocytes Percent Auto 19.7 % (25-40); Mean Corpuscular HGB Conc 32.7 % (30-36); Mean Corpuscular Hemoglobin 28.2 PG (26-34); Mean Corpuscular Volume 86.1 fL (80-100); Monocytes Absolute Auto 600 /uL (0-900); Monocytes Percent Auto 6.6 % (3-14); Neutrophils Absolute Auto 6400 /uL (1500-7000); Neutrophils Percent Auto 71.3 % (50-75); Platelet Count 173 X10^3/uL (150-400); Red Blood Cell Count 5.48 X10^6/uL (4.0-5.2); Red Cell Distribution Width 14.1 % (11.6-14.8); White Blood Cell Count 8.9 X10^3/uL (4.5-11.0)
[2021-06-17 09:30] LABS: Hemoglobin A1C% w Est Avg Glu 6.5 % (4.0-6.0)
[2021-06-17 10:06] LABS: Alanine Aminotransferase 17 IU/L (<35); Albumin 4.3 g/dL (3.5-5.0); Albumin Globulin Ratio 1.5 (1.0-2.8); Alkaline Phosphatase 74 U/L (38-126); Aspartate Aminotransferase 18 IU/L (14-36); BUN Creatinine Ratio 21.6 (6-22); Bilirubin Total 0.9 mg/dL (0.2-1.3); Blood Urea Nitrogen 11 mg/dL (7-17); Calcium 9.4 mg/dL (8.4-10.2); Carbon Dioxide 33 mmol/L (22-32); Chloride 102 mmol/L (98-107); Cholesterol 195 mg/dL (140-199); Estimated Glomerular Filt Rate > 60.0 mL/min (>60); Globulin 2.8 g/dL (1.7-4.1); Glucose 142 mg/dL (80-110); HDL Cholesterol 59 mg/dL (40-60); HEMOLYSIS < 15 (0-50); LDL Cholesterol Calculated 111 mg/dL (<100); Potassium 4.2 mmol/L (3.4-5.1); Sodium 139 mmol/L (137-145); Total Protein 7.1 g/dL (6.3-8.2); Triglycerides 127 mg/dL (35-150)
== END ==
PROVIDERS: Referring Provider Family Medicine; Visit Provider Family Medicine
DX: E11.9 Type 2 diabetes mellitus without complications (principal); D50.9 Iron deficiency anemia, unspecified; I10 Essential (primary) hypertension; E78.5 Hyperlipidemia, unspecified
CPT/HCPCS: 36415; 80053; 80061; 83036; 85025

== ENCOUNTER → 2021-10-23 16:30 | Outpatient (CLI) | payer MEDICARE, SELFPAY ==
[2021-10-23 18:25] LABS: Hemoglobin A1C% w Est Avg Glu 6.4 % (4.0-6.0)
== END ==
PROVIDERS: PCP Family Medicine; Referring Provider Pediatrics; Visit Provider Pediatrics
DX: E11.9 Type 2 diabetes mellitus without complications (principal)
CPT/HCPCS: 36415; 83036

== ENCOUNTER → 2021-10-31 17:09 | Outpatient (CLI) | payer MEDICARE, SELFPAY ==
[2021-10-31 17:26] LABS: Add Manual Diff / Slide Review NO; Basophils Absolute Auto 100 /uL (0-100); Eosinophils Absolute Auto 200 /uL (0-450); Eosinophils Percent Auto 2.1 % (2-4); Hematocrit 45.3 % (36-46); Hemoglobin 15.3 g/dL (12.0-16.0); Lymphocytes Absolute Auto 2100 /uL (1100-4500); Lymphocytes Percent Auto 20.8 % (25-40); Mean Corpuscular HGB Conc 33.9 % (30-36); Mean Corpuscular Hemoglobin 28.8 PG (26-34); Monocytes Absolute Auto 600 /uL (0-900); Monocytes Percent Auto 6.1 % (3-14); Neutrophils Absolute Auto 7000 /uL (1500-7000); Platelet Count 165 X10^3/uL (150-400); Red Blood Cell Count 5.33 X10^6/uL (4.0-5.2); Red Cell Distribution Width 14.1 % (11.6-14.8)
[2021-10-31 17:47] LABS: Alanine Aminotransferase 24 IU/L (<35); Albumin 4.3 g/dL (3.5-5.0); Albumin Globulin Ratio 1.5 (1.0-2.8); Alkaline Phosphatase 75 U/L (38-126); Aspartate Aminotransferase 24 IU/L (14-36); BUN Creatinine Ratio 22.6 (6-22); Bilirubin Total 0.5 mg/dL (0.2-1.3); Blood Urea Nitrogen 14 mg/dL (7-17); Calcium 9.1 mg/dL (8.4-10.2); Carbon Dioxide 30 mmol/L (22-32); Chloride 105 mmol/L (98-107); Estimated Glomerular Filt Rate > 60 mL/min (>60); Globulin 2.8 g/dL (1.7-4.1); Glucose 112 mg/dL (80-110); HEMOLYSIS < 15 (0-50); Potassium 4.3 mmol/L (3.4-5.1); Sodium 140 mmol/L (137-145); Total Protein 7.1 g/dL (6.3-8.2)
== END ==
PROVIDERS: PCP Pediatrics; Referring Provider Pediatrics; Visit Provider Pediatrics
DX: E11.9 Type 2 diabetes mellitus without complications (principal); D50.9 Iron deficiency anemia, unspecified; I10 Essential (primary) hypertension
CPT/HCPCS: 36415; 80053; 85025

== ENCOUNTER → 2022-02-06 13:42 | Outpatient (CLI) | payer MEDICARE, SELFPAY ==
[2022-02-06 15:03] LABS: Hemoglobin A1C% w Est Avg Glu 6.1 % (4.0-6.0)
[2022-02-06 15:13] LABS: Add Manual Diff / Slide Review NO; Basophils Absolute Auto 100 /uL (0-100); Basophils Percent Auto 0.6 % (0-2); Eosinophils Absolute Auto 200 /uL (0-450); Eosinophils Percent Auto 1.9 % (2-4); Hematocrit 45.3 % (36-46); Hemoglobin 15.5 g/dL (12.0-16.0); Lymphocytes Absolute Auto 2200 /uL (1100-4500); Lymphocytes Percent Auto 22.9 % (25-40); Mean Corpuscular HGB Conc 34.2 % (30-36); Mean Corpuscular Hemoglobin 29.2 PG (26-34); Mean Corpuscular Volume 85.5 fL (80-100); Monocytes Absolute Auto 700 /uL (0-900); Neutrophils Absolute Auto 6400 /uL (1500-7000); Neutrophils Percent Auto 67.6 % (50-75); Platelet Count 169 X10^3/uL (150-400); Red Blood Cell Count 5.29 X10^6/uL (4.0-5.2); Red Cell Distribution Width 13.9 % (11.6-14.8); White Blood Cell Count 9.4 X10^3/uL (4.5-11.0)
[2022-02-06 15:15] LABS: BUN Creatinine Ratio 31.8 (6-22); Blood Urea Nitrogen 14 mg/dL (7-17); Calcium 9.5 mg/dL (8.4-10.2); Carbon Dioxide 34 mmol/L (22-32); Chloride 99 mmol/L (98-107); Estimated Glomerular Filt Rate > 60 mL/min (>60); Glucose 106 mg/dL (80-110); HEMOLYSIS < 15 (0-50); Potassium 4.2 mmol/L (3.4-5.1); Sodium 141 mmol/L (137-145)
[2022-02-06 16:35] LABS: Creatinine Urine Random 143.6 mg/dL
[2022-02-06 16:37] LABS: Microalbumi Creatinin Ratio Ur 11.8 ug/mg CR (<30); Microalbumin Urine Random 1.7 mg/dL (0-1.6)
== END ==
PROVIDERS: PCP Family Medicine; Referring Provider Family Medicine; Visit Provider Family Medicine
DX: E11.9 Type 2 diabetes mellitus without complications (principal)
CPT/HCPCS: 36415; 80048; 82043; 82570; 83036; 85025

== ENCOUNTER → 2022-08-29 10:30 | Outpatient (CLI) | payer MEDICARE, SELFPAY ==
[2022-08-29 10:47] LABS: Add Manual Diff / Slide Review NO; Basophils Absolute Auto 100 /uL (0-100); Eosinophils Absolute Auto 200 /uL (0-450); Eosinophils Percent Auto 1.6 % (2-4); Hematocrit 43.9 % (36-46); Hemoglobin 14.8 g/dL (12.0-16.0); Lymphocytes Absolute Auto 1700 /uL (1100-4500); Lymphocytes Percent Auto 17.3 % (25-40); Mean Corpuscular HGB Conc 33.7 % (30-36); Mean Corpuscular Hemoglobin 28.9 PG (26-34); Mean Corpuscular Volume 85.8 fL (80-100); Monocytes Absolute Auto 700 /uL (0-900); Monocytes Percent Auto 6.8 % (3-14); Neutrophils Absolute Auto 7400 /uL (1500-7000); Neutrophils Percent Auto 73.3 % (50-75); Platelet Count 166 X10^3/uL (150-400); Red Blood Cell Count 5.12 X10^6/uL (4.0-5.2); Red Cell Distribution Width 13.9 % (11.6-14.8); White Blood Cell Count 10.1 X10^3/uL (4.5-11.0)
[2022-08-29 11:09] LABS: BUN Creatinine Ratio 26.7 (6-22); Blood Urea Nitrogen 12 mg/dL (7-17); Calcium 8.9 mg/dL (8.4-10.2); Carbon Dioxide 33 mmol/L (22-32); Chloride 101 mmol/L (98-107); Cholesterol 228 mg/dL (140-199); Estimated Glomerular Filt Rate > 60 mL/min (>60); Glucose 156 mg/dL (80-110); HDL Cholesterol 57 mg/dL (40-60); HEMOLYSIS < 15 (0-50); LDL Cholesterol Calculated 149 mg/dL (<100); Potassium 4.3 mmol/L (3.4-5.1); Sodium 139 mmol/L (137-145); Triglycerides 112 mg/dL (35-150)
[2022-08-29 12:03] LABS: Creatinine Urine Random 119.5 mg/dL
[2022-08-29 12:07] LABS: Microalbumi Creatinin Ratio Ur 16.7 ug/mg CR (<30)
[2022-08-31 03:29] LABS: x Labcorp Estim. Avg Glu (eAG) 137 mg/dL (.); x Labcorp Hemoglobin A1c 6.4 % (4.8-5.6)
== END ==
PROVIDERS: PCP Family Medicine; Referring Provider Family Medicine; Visit Provider Family Medicine
DX: D50.9 Iron deficiency anemia, unspecified (principal); E11.9 Type 2 diabetes mellitus without complications; E78.5 Hyperlipidemia, unspecified; I10 Essential (primary) hypertension
CPT/HCPCS: 36415; 80048; 80061; 82043; 82570; 83036; 85025

== ENCOUNTER → 2023-03-03 15:53 | Outpatient (CLI) | payer MEDICARE, SELFPAY ==
[2023-03-03 16:51] LABS: Hemoglobin A1C% w Est Avg Glu 6.5 % (4.0-6.0)
[2023-03-03 17:29] LABS: BUN Creatinine Ratio 39.5 (6-22); Blood Urea Nitrogen 17 mg/dL (7-17); Calcium 9.4 mg/dL (8.4-10.2); Carbon Dioxide 32 mmol/L (22-32); Chloride 101 mmol/L (98-107); Estimated Glomerular Filt Rate > 60 mL/min (>60); Glucose 117 mg/dL (80-110); HEMOLYSIS 17 (0-50); Potassium 4.1 mmol/L (3.4-5.1); Sodium 136 mmol/L (137-145)
[2023-03-05 17:27] LABS: Fecal Immunochemical Test Negative (Negative)
== END ==
PROVIDERS: PCP Family Medicine; Referring Provider Family Medicine; Visit Provider Family Medicine
DX: E11.9 Type 2 diabetes mellitus without complications (principal); D50.9 Iron deficiency anemia, unspecified; I10 Essential (primary) hypertension; Z12.11 Encounter for screening for malignant neoplasm of colon
CPT/HCPCS: 36415; 80048; 82274; 83036

== ENCOUNTER → 2023-07-23 13:12 | Outpatient (CLI) | payer MEDICARE, SELFPAY ==
[2023-07-23 14:00] LABS: Add Manual Diff / Slide Review NO; Basophils Absolute Auto 0 /uL (0-100); Basophils Percent Auto 0.4 % (0-2); Eosinophils Absolute Auto 200 /uL (0-450); Eosinophils Percent Auto 2.2 % (2-4); Hematocrit 42.1 % (36-46); Hemoglobin 13.8 g/dL (12.0-16.0); Lymphocytes Absolute Auto 1600 /uL (1100-4500); Lymphocytes Percent Auto 19.3 % (25-40); Mean Corpuscular HGB Conc 32.7 % (30-36); Mean Corpuscular Hemoglobin 29.2 PG (26-34); Mean Corpuscular Volume 89.2 fL (80-100); Monocytes Absolute Auto 500 /uL (0-900); Monocytes Percent Auto 5.8 % (3-14); Neutrophils Absolute Auto 6200 /uL (1500-7000); Neutrophils Percent Auto 72.3 % (50-75); Platelet Count 155 X10^3/uL (150-400); Red Blood Cell Count 4.73 X10^6/uL (4.0-5.2); Red Cell Distribution Width 13.9 % (11.6-14.8); White Blood Cell Count 8.5 X10^3/uL (4.5-11.0)
[2023-07-23 14:59] LABS: HEMOLYSIS < 15 (0-50)
[2023-07-23 15:31] LABS: Alanine Aminotransferase 16 IU/L (<35); Albumin 3.8 g/dL (3.5-5.0); Albumin Globulin Ratio 1.5 (1.0-2.8); Alkaline Phosphatase 78 U/L (38-126); Aspartate Aminotransferase 19 IU/L (14-36); Bilirubin Total 0.6 mg/dL (0.2-1.3); Blood Urea Nitrogen 9 mg/dL (7-17); Calcium 8.7 mg/dL (8.4-10.2); Carbon Dioxide 34 mmol/L (22-32); Chloride 105 mmol/L (98-107); Estimated Glomerular Filt Rate > 60 mL/min (>60); Globulin 2.6 g/dL (1.7-4.1); Glucose 117 mg/dL (80-110); HEMOLYSIS < 15 (0-50); Potassium 3.9 mmol/L (3.4-5.1); Sodium 139 mmol/L (137-145); Total Protein 6.4 g/dL (6.3-8.2)
[2023-07-23 15:40] LABS: Total Iron Binding Capacity 301 ug/dL (265-497); Transferrin 239 mg/dL (206-381)
[2023-07-23 16:04] LABS: Ferritin 21 ng/mL (11-264)
[2023-07-23 18:24] LABS: Iron 106 ug/dL (37-170); Percent Iron Saturation 35 % (15-50)
[2023-07-31 06:01] LABS: Magnesium, RBC 4.2 mg/dL (3.7-7.0)
== END ==
LOC: LAB 13:13
PROVIDERS: Family Provider Family Medicine; PCP Family Medicine; Referring Provider Family Medicine; Visit Provider Family Medicine
DX: R25.2 Cramp and spasm (principal); K92.1 Melena; D68.61 Antiphospholipid syndrome
CPT/HCPCS: 36415; 80053; 82728; 83540; 83550; 83735; 85025

== ENCOUNTER → 2023-08-21 11:09 | Outpatient (CLI) | payer MEDICARE, SELFPAY ==
--- NOTE | 2023-08-21 11:12 | DI.MG.S_ITS ---
BILATERAL DIGITAL SCREENING MAMMOGRAM 3D/2D WITH CAD: 08/21/2023 CLINICAL: Routine screening. Family history of breast cancer. Comparison is made to exams dated: 12/14/2019 mammogram, 09/12/2018 mammogram, and 08/21/2017 mammogram - [facility]. Both breasts are almost entirely fatty (category a/<25% glandular tissue). Current study was also evaluated with a Computer Aided Detection (CAD) system. No significant masses, calcifications, or other findings are seen in either breast. There has been no significant interval change. IMPRESSION: NEGATIVE There is no mammographic evidence of malignancy. A 1 year screening mammogram is recommended. Based on the Tyrer Cuzick model (a risk assessment model) the patient's lifetime risk is 4.8% and her 10 year risk is 3.9%. According to the ACR, ACS, and NCCN guidelines, an annual breast MRI exam along with mammogram is recommended if the patient's lifetime risk is 20% or greater. This exam was interpreted at Station ID: [id number]. NOTE: For mammograms, a report in lay terms will be sent to the patient. Approximately 15% of breast malignancies will not be visualized mammographically. In the management of a palpable breast mass, a negative mammogram must not discourage biopsy of a clinically suspicious lesion. Electronically Signed By: Armin morgan/trell:08/23/2023 08:01:32 letter sent: Normal Exam ACR BI-RADS Category 1: Negative [id number]
== END ==
PROVIDERS: Family Provider Family Medicine; PCP Family Medicine; Referring Provider Family Medicine; Visit Provider Family Medicine
DX: Z12.31 Encounter for screening mammogram for malignant neoplasm of breast (principal); Z80.3 Family history of malignant neoplasm of breast; R92.313 Mammographic fatty tissue density, bilateral breasts
CPT/HCPCS: 77063; 77067

== ENCOUNTER → 2023-08-30 11:23 | Outpatient (CLI) | payer MEDICARE, SELFPAY ==
[2023-08-30 12:14] LABS: Add Manual Diff / Slide Review NO; Basophils Absolute Auto 100 /uL (0-100); Basophils Percent Auto 1.1 % (0-2); Eosinophils Absolute Auto 200 /uL (0-450); Eosinophils Percent Auto 2.8 % (2-4); Hematocrit 45.5 % (36-46); Hemoglobin 15.1 g/dL (12.0-16.0); Lymphocytes Absolute Auto 1400 /uL (1100-4500); Lymphocytes Percent Auto 19.2 % (25-40); Mean Corpuscular HGB Conc 33.2 % (30-36); Mean Corpuscular Volume 87.4 fL (80-100); Monocytes Absolute Auto 700 /uL (0-900); Monocytes Percent Auto 9.5 % (3-14); Neutrophils Absolute Auto 4700 /uL (1500-7000); Neutrophils Percent Auto 67.4 % (50-75); Platelet Count 169 X10^3/uL (150-400); Red Blood Cell Count 5.21 X10^6/uL (4.0-5.2); Red Cell Distribution Width 13.4 % (11.6-14.8)
[2023-08-30 12:27] LABS: Alanine Aminotransferase 17 IU/L (<35); Albumin 4.4 g/dL (3.5-5.0); Albumin Globulin Ratio 1.5 (1.0-2.8); Alkaline Phosphatase 88 U/L (38-126); Aspartate Aminotransferase 23 IU/L (14-36); Bilirubin Total 0.6 mg/dL (0.2-1.3); Blood Urea Nitrogen 9 mg/dL (7-17); Calcium 9.2 mg/dL (8.4-10.2); Carbon Dioxide 30 mmol/L (22-32); Chloride 105 mmol/L (98-107); Cholesterol 213 mg/dL (140-199); Estimated Glomerular Filt Rate > 60 mL/min (>60); Globulin 2.9 g/dL (1.7-4.1); Glucose 142 mg/dL (80-110); HDL Cholesterol 55 mg/dL (40-60); HEMOLYSIS < 15 (0-50); LDL Cholesterol Calculated 137 mg/dL (<100); Potassium 4.4 mmol/L (3.4-5.1); Sodium 137 mmol/L (137-145); Total Protein 7.3 g/dL (6.3-8.2); Triglycerides 103 mg/dL (35-150)
[2023-08-30 12:29] LABS: Hemoglobin A1C% w Est Avg Glu 6.4 % (4.0-6.0)
[2023-08-30 12:32] LABS: High Sensitivity CRP - Cardiac 5.4 mg/L (1.0-3.0)
[2023-08-30 15:43] LABS: Creatinine Urine Random 74.5 mg/dL
[2023-08-30 15:46] LABS: Microalbumi Creatinin Ratio Ur 33.5 ug/mg CR (<30); Microalbumin Urine Random 2.5 mg/dL (0-1.6)
== END ==
LOC: LAB 11:23
PROVIDERS: Family Provider Family Medicine; PCP Family Medicine; Referring Provider Family Medicine; Visit Provider Family Medicine
DX: N18.30 Chronic kidney disease, stage 3 unspecified (principal); E11.9 Type 2 diabetes mellitus without complications; D50.9 Iron deficiency anemia, unspecified; E78.5 Hyperlipidemia, unspecified; E55.9 Vitamin D deficiency, unspecified
CPT/HCPCS: 36415; 80053; 80061; 82043; 82306; 82570; 83036; 85025; 86140

== ENCOUNTER 2023-10-11 10:30 | Outpatient (RCR) | payer MEDICARE, SELFPAY ==
--- NOTE | 2023-07-21 17:37 | PT.OIE ---
Current Diagnoses Pain in left shoulder (07/21/23) Stiffness of left shoulder, not elsewhere classified (07/21/23) Other injury of muscle(s) and tendon(s) of the rotator cuff of left shoulder, subsequent encounter (07/21/23) Past Medical History (Last Updated 11/20/19 @ 12:25 by Jaleesa Gregorio DO) Abnormal CXR (chest x-ray) (2014) Antiphospholipid antibody syndrome (2014) Anxiety (1968) Asthma (2013) Cataract (2014) COPD (chronic obstructive pulmonary disease) (2013) Eczema (1964) Family history of breast cancer Foot pain Fractures (1975) Gastrointestinal hemorrhage (07/02/14) GI bleeding (2014) History of heavy periods (1991) Measles (~1956) Mumps (~195) [place]-Schlatter's disease of both lower extremities Painful menstrual periods (1991) Pancreatic pseudocyst Pancreatitis (2003) Psoriasis (1973) Pulmonary embolism (05/2014) Pulmonary thromboembolism (07/02/14) Rubella (~195) Shoulder pain (1979) Tobacco use disorder (10/26/13) Type 2 diabetes mellitus without complication, without long-term current use of insulin (05/22/16) Past Surgical History (Last Reviewed 11/17/19 @ 18:08 by Rodrick Sherman MD) Anesthesia History of cataract surgery (2014) History of tonsillectomy (1955) S/P insertion of IVC (inferior vena caval) filter (05/2014) Status post delivery (1974) Status post delivery (1984) Status post delivery (1987) Status post hysterectomy (1993) Status post laparoscopic cholecystectomy (2006) Visit Care Team Role Provider Type Deisi Benedict DO Attending Provider Physician Family Provider Primary Care Provider Referring Provider Specialty: Medical Address: [address] [place] [address], [address], [address] Email: [email or web address] Physical Therapy Initial Evaluation PT-OP-A Visit Information Start: 07/21/23 17:13 Freq: Status: Active Protocol: Document 07/21/23 16:00 DCW (Rec: 07/21/23 17:37 DCW [id number]) Out-Patient Physical Therapy Visit Information Visit Information Visit Type Initial Evaluation Visit Start Time 16:00 Visit Stop Time 16:45 Visit Number 1 Number of WRAPPER STRIPPER Visits 0 Evaluation Information Evaluation Date 07/21/23 PT-OP-B Current Condition Start: 07/21/23 17:13 Freq: Status: Active Protocol: Document 07/21/23 16:00 DCW (Rec: 07/21/23 17:37 DCW [id number]) Current Condition History of Current Condition Onset Date Two month history Current Complaints Left shoulder pain and immobility History of Current Condition Pt is a 72 year old female presenting with a two month history of left shoulder pain and stiffness. Pt notes insidious onset, no initial injury, but has been worsening the last two months. Pt reports a general soreness rates 1-2/10 at rest, but worse with performing certain activities. Does admit it feels better after getting up and moving it more. Painful to carry anything in her left hand, pain when trying to don/ doff clothes, or attempting to lift her left arm overhead. PT-OP-C Subjective Start: 07/21/23 17:13 Freq: Status: Active Protocol: Document 07/21/23 16:00 DCW (Rec: 07/21/23 17:37 DCW [id number]) OP-PT Subjective Patient Comments Patient Comments I want to put my jacket on without it hurting, or at least hurting less would also be acceptable. Patient Questionnaires Quick Dash- Upper Extremity Quick Dash UE Score 40% Quick Dash UE Impairment 40 to 59% Impaired (Score 40- 59) PT-OP-F Manual Assessment Start: 07/21/23 17:13 Freq: Status: Active Protocol: Document 07/21/23 16:00 DCW (Rec: 07/21/23 17:37 DCW [id number]) Manual Assessments Soft Tissue Assessment Soft Tissue Mobility Assessment Tenderness to palpation 3/4: Wincing and withdraw along left supraspinatus, infraspinatus, subscapularis, biceps, upper trap Joint Mobility Assessment Joint Mobility Assessment grinding/popping/rough surface movement with passive left GH mobility PT-OP-K Range of Motion Start: 07/21/23 17:13 Freq: Status: Active Protocol: Document 07/21/23 16:00 DCW (Rec: 07/21/23 17:37 DCW [id number]) Shoulder Goniometric Range of Motion Shoulder Left Passive Shoulder ROM WFL No Testing Position Supine Flexion 125 Abduction 42 Right Active Shoulder ROM WFL No Testing Position Sitting Flexion 112 Abduction 120 External Rotation at 0 degrees Abduction 70 Internal Rotation Behind Back (text) T11 Left Active Shoulder ROM WFL No Testing Position Sitting Flexion 92 Abduction 74 External Rotation at 0 degrees Abduction 38 Internal Rotation Behind Back (text) T11 PT-OP-L Special Tests Start: 07/21/23 17:13 Freq: Status: Active Protocol: Document 07/21/23 16:00 DCW (Rec: 07/21/23 17:37 DCW [id number]) Special Tests Shoulder Special Tests Speed's Biceps Test Results Positive Left Passive ER Rotator Cuff Test Results Positive Left Lift-Off Rotator Cuff Test Results Positive Left Chance Ventura Impingement Test Results Positive Left Grind Labrum Test Results Positive Left Empty Can Test Results Positive Left Belly Press Test Results Positive Left AC Joint Compression Test Results Negative PT-OP-M Strength Start: 07/21/23 17:13 Freq: Status: Active Protocol: Document 07/21/23 16:00 DCW (Rec: 07/21/23 17:37 DCW [id number]) Shoulder Strength Shoulder Manual Muscle Testing Left Flexion 2+ Poor+ Abduction (C5) 2+ Poor+ External Rotation 2+ Poor+ Internal Rotation 2+ Poor+ PT-OP-Q Treatments Start: 07/21/23 17:13 Freq: Status: Active Protocol: Document 07/21/23 16:00 DCW (Rec: 07/21/23 17:37 DC [id number]) Therapeutic Exercises Sitting Exercises Table slides Sitting Exercise Name Table slides Side left Standing Exercises Pendulums Standing Exercise Name Pendulums Side left PT-OP-T Assessment and Plan Start: 07/21/23 17:13 Freq: Status: Active Protocol: Document 07/21/23 16:00 DCW (Rec: 07/21/23 17:37 DCW [id number]) Physical Therapy Assessment Rehab Potential Rehabilitation Potential Good Evaluation Complexity Number of Personal Factors/Comorbidities 3 or More Number of Body Systems Impaired 4 or More Clinical Presentation at Evaluation Unstable Impairments Impairments Activity Tolerance,Functional Activities,Functional Mobility ,Pain,Posture,ROM,Soft Tissue Mobility,Strength,Tone Goals Two Impairment Severely limited left shoulder ROM in flexion (92?) and abduction (74?) Residential Goal (LTG) Pt to improve left shoulder AROM flexion and abduction to > 120? in order to improve ability to perform overhead activities and don/doff jacket without pain LTG Duration 10/19/23 One Impairment Pt does not have an appropriate home exercise program Short Term Goal (STG) Pt to be independent and compliant with an appropriate HEP STG Duration 08/21/23 Assessment Summary Assessment Pt presents with signs and symptoms consistent with degenerative changes bilaterally (left significantly worse than right ), with likely involvement of left rotator cuff musculature. Severe pain and protective spasming in left parascapular musculature limiting both range of motion and strength. Spent some time today reviewing shoulder anatomy and ways to help limit adhesive capsulitis by maintaining available PROM until strength and flexibility can be improved. Pt should benefit from skilled therapy focusing on shoulder ROM, decreasing muscle tone, improving strength, and pain control in order to help pt return to prior level of function and improve ability to don/doff jacket in perform overhead activities. Physical Therapy Plan Frequency and Duration Frequency of Treatment 2x/Week Plan of Care Start Date 07/21/23 Plan of Care End Date 10/19/23 Therapeutic Interventions Therapeutic Interventions Home Exercise Program,Joint Mobilizations,Manual Therapy, Neuromuscular Re-education, Patient/Caregiver Education, Self-Care/Home Management,Soft Tissue Mobilization, Therapeutic Activities, Therapeutic Exercises Modalities Cold Pack/Ice Massage,Electric Stimulation,Hot Packs, Ultrasound Next Visit Focus/Plan Next Note Type Treatment Note Next Visit Plan Shoulder AROM/PROM, strengthening, STM
--- NOTE | 2023-07-21 17:38 | PT.OPPOC ---
Physical, Occupational & Speech Therapy At [facility] Current Diagnoses Pain in left shoulder (07/21/23) Stiffness of left shoulder, not elsewhere classified (07/21/23) Other injury of muscle(s) and tendon(s) of the rotator cuff of left shoulder, subsequent encounter (07/21/23) Visit Care Team Role Provider Type Deisi Benedict DO Attending Provider Physician Family Provider Primary Care Provider Referring Provider Specialty: Medical Address: [address] [place] [address], [address], [place], [address] Email: [email or web address] Plan Of Care PT-OP-T Assessment and Plan Start: 07/21/23 17:13 Freq: Status: Active Protocol: Document 07/21/23 16:00 DCW (Rec: 07/21/23 17:37 DCW [id number]) Physical Therapy Assessment Rehab Potential Rehabilitation Potential Good Evaluation Complexity Number of Personal Factors/Comorbidities 3 or More Number of Body Systems Impaired 4 or More Clinical Presentation at Evaluation Unstable Impairments Impairments Activity Tolerance,Functional Activities,Functional Mobility ,Pain,Posture,ROM,Soft Tissue Mobility,Strength,Tone Goals Two Impairment Severely limited left shoulder ROM in flexion (92?) and abduction (74?) Technician Biological Health Goal (LTG) Pt to improve left shoulder AROM flexion and abduction to > 120? in order to improve ability to perform overhead activities and don/doff jacket without pain LTG Duration 10/19/23 One Impairment Pt does not have an appropriate home exercise program Short Term Goal (STG) Pt to be independent and compliant with an appropriate HEP STG Duration 08/21/23 Assessment Summary Assessment Pt presents with signs and symptoms consistent with degenerative changes bilaterally (left significantly worse than right ), with likely involvement of left rotator cuff musculature. Severe pain and protective spasming in left parascapular musculature limiting both range of motion and strength. Spent some time today reviewing shoulder anatomy and ways to help limit adhesive capsulitis by maintaining available PROM until strength and flexibility can be improved. Pt should benefit from skilled therapy focusing on shoulder ROM, decreasing muscle tone, improving strength, and pain control in order to help pt return to prior level of function and improve ability to don/doff jacket in perform overhead activities. Physical Therapy Plan Frequency and Duration Frequency of Treatment 2x/Week Plan of Care Start Date 07/21/23 Plan of Care End Date 10/19/23 Therapeutic Interventions Therapeutic Interventions Home Exercise Program,Joint Mobilizations,Manual Therapy, Neuromuscular Re-education, Patient/Caregiver Education, Self-Care/Home Management,Soft Tissue Mobilization, Therapeutic Activities, Therapeutic Exercises Modalities Cold Pack/Ice Massage,Electric Stimulation,Hot Packs, Ultrasound Next Visit Focus/Plan Next Note Type Treatment Note Next Visit Plan Shoulder AROM/PROM, strengthening, STM Plan of Care Dates Plan of Care Start Date 07/21/23 Plan of Care End Date 10/19/23 Electronically Signed by: Robbin Mason, PT 07/21/23 [id number] If you are in agreement with this Plan of Care, please return a signed and dated copy. I have reviewed this Plan of Care and certify that the skilled therapy services above are required to meet the patient?s needs. Physician Signature Date Printed Name and Credentials Clinical Instructor Signature Printed Name and Credentials
--- NOTE | 2023-07-26 16:25 | PT.OTN ---
Current Diagnoses Pain in left shoulder (07/26/23) Stiffness of left shoulder, not elsewhere classified (07/26/23) Other injury of muscle(s) and tendon(s) of the rotator cuff of left shoulder, subsequent encounter (07/26/23) Physical Therapy Treatment Note PT-OP-A Visit Information Start: 07/21/23 17:13 Freq: Status: Active Protocol: Document 07/26/23 12:59 AB (Rec: 07/26/23 16:25 AB [id number]) Out-Patient Physical Therapy Visit Information Visit Information Visit Type Treatment Note Visit Note ccess Code: [id number] Visit Start Time 14:33 Visit Stop Time 15:15 Visit Number 2 Number of CHILD LIFE ASSISTANT Visits 1 Evaluation Information Evaluation Date 07/21/23 PT-OP-B Current Condition Start: 07/21/23 17:13 Freq: Status: Active Protocol: Document 07/21/23 16:00 DCW (Rec: 07/21/23 17:37 DCW [id number]) Current Condition History of Current Condition Onset Date Two month history Current Complaints Left shoulder pain and immobility History of Current Condition Pt is a 72 year old female presenting with a two month history of left shoulder pain and stiffness. Pt notes insidious onset, no initial injury, but has been worsening the last two months. Pt reports a general soreness rates 1-2/10 at rest, but worse with performing certain activities. Does admit it feels better after getting up and moving it more. Painful to carry anything in her left hand, pain when trying to don/ doff clothes, or attempting to lift her left arm overhead. PT-OP-C Subjective Start: 07/21/23 17:13 Freq: Status: Active Protocol: Document 07/26/23 12:59 AB (Rec: 07/26/23 16:25 AB [id number]) OP-PT Subjective Patient Comments Patient Comments Patient reports she is having difficulty with the pendulum exercise. Patient reports the shoulder is slightly better, it doesn't hurt as much when she wakes up or carrying a plate or cup is less painful. PT-OP-F Manual Assessment Start: 07/21/23 17:13 Freq: Status: Active Protocol: Document 07/21/23 16:00 DCW (Rec: 07/21/23 17:37 DCW [id number]) Manual Assessments Soft Tissue Assessment Soft Tissue Mobility Assessment Tenderness to palpation 3/4: Wincing and withdraw along left supraspinatus, infraspinatus, subscapularis, biceps, upper trap Joint Mobility Assessment Joint Mobility Assessment grinding/popping/rough surface movement with passive left GH mobility PT-OP-K Range of Motion Start: 07/21/23 17:13 Freq: Status: Active Protocol: Document 07/21/23 16:00 DCW (Rec: 07/21/23 17:37 DCW [id number]) Shoulder Goniometric Range of Motion Shoulder Left Passive Shoulder ROM WFL No Testing Position Supine Flexion 125 Abduction 42 Right Active Shoulder ROM WFL No Testing Position Sitting Flexion 112 Abduction 120 External Rotation at 0 degrees Abduction 70 Internal Rotation Behind Back (text) T11 Left Active Shoulder ROM WFL No Testing Position Sitting Flexion 92 Abduction 74 External Rotation at 0 degrees Abduction 38 Internal Rotation Behind Back (text) T11 PT-OP-L Special Tests Start: 07/21/23 17:13 Freq: Status: Active Protocol: Document 07/21/23 16:00 DCW (Rec: 07/21/23 17:37 DCW [id number]) Special Tests Shoulder Special Tests Speed's Biceps Test Results Positive Left Passive ER Rotator Cuff Test Results Positive Left Lift-Off Rotator Cuff Test Results Positive Left Chance Ventura Impingement Test Results Positive Left Grind Labrum Test Results Positive Left Empty Can Test Results Positive Left Belly Press Test Results Positive Left AC Joint Compression Test Results Negative PT-OP-M Strength Start: 07/21/23 17:13 Freq: Status: Active Protocol: Document 07/21/23 16:00 DCW (Rec: 07/21/23 17:37 DCW [id number]) Shoulder Strength Shoulder Manual Muscle Testing Left Flexion 2+ Poor+ Abduction (C5) 2+ Poor+ External Rotation 2+ Poor+ Internal Rotation 2+ Poor+ PT-OP-Q Treatments Start: 07/21/23 17:13 Freq: Status: Active Protocol: Document 07/26/23 12:59 AB (Rec: 07/26/23 16:25 AB [id number]) Therapeutic Exercises Supine Exercises AA shoulder flexion Supine Exercise Name hands clasped Side bilateral Reps/Minutes X6 Comments verbal cues to allow UE to relax 10 seconds end ROM AROM IR Supine Exercise Name focus on avoiding ant translation of humerus Side left Reps/Minutes X10 Comments self tactile cues for avoiding ant translation of humerus. Sidelying Exercises sidelying shoulder ER AROM Side left Reps/Minutes X10 Comments Verbal and tactile cues Sitting Exercises Seated shoulder AROM ER Reps/Minutes X3 Comments verbal cues, patient reports prefering sidelying ER Standing Exercises Row Side bilateral Resistance level one band// latex free band issued Reps/Minutes 3X10 Comments verbal cues to avoid UT activation Pendulums Standing Exercise Name Pendulums AP and lateral Side left Manual Therapy Treatment Soft Tissue Mobilization left periscapular muscles Mobilization Type Cross-Friction,Rolling Intensity/Depth Moderate Body Position Sidelying Comments monitored for pain left post cuff Mobilization Type Cross-Friction,Rolling Intensity/Depth Moderate Body Position Sidelying Comments monitored for pain left pec Body Location pec minor left shoulder Intensity/Depth Moderate Body Position Hooklying Comments monitored for pain Joint Mobilizations scapular mobilization Joint left UE Direction depression and adduction Grade III Reps/Duration 15 Gh mobilizations Joint left GH joint Direction ap and inf Grade III Body Position Hooklying Reps/Duration 12 each Manual Techniques PROM left shoulder ER Type at 30 deg abduction Reps/Duration X8 Self-Care/Home Management Treatment Activities Self-Care/Home Management Activities AROM supine flexion with hands clasped, row with level one band, sidelying shoulder ER AROM to HEP PT-OP-T Assessment and Plan Start: 07/21/23 17:13 Freq: Status: Active Protocol: Document 07/26/23 12:59 AB (Rec: 07/26/23 16:25 AB [id number]) Physical Therapy Assessment Goals Two Impairment Severely limited left shoulder ROM in flexion (92?) and abduction (74?) Automatic Presser Goal (LTG) Pt to improve left shoulder AROM flexion and abduction to > 120? in order to improve ability to perform overhead activities and don/doff jacket without pain LTG Duration 10/19/23 One Impairment Pt does not have an appropriate home exercise program Short Term Goal (STG) Pt to be independent and compliant with an appropriate HEP STG Duration 08/21/23 Assessment Summary Assessment Afia reports the shoulder feels like she worked it, but it feels nice. AROM left shoulder flexion 90 deg end of session. Physical Therapy Plan Frequency and Duration Frequency of Treatment 2x/Week Plan of Care Start Date 07/21/23 Plan of Care End Date 10/19/23 Next Visit Focus/Plan Next Note Type Treatment Note Next Visit Plan Shoulder AROM/PROM, strengthening, STM
--- NOTE | 2023-07-28 16:28 | PT.OTN ---
Current Diagnoses Pain in left shoulder (07/28/23) Stiffness of left shoulder, not elsewhere classified (07/28/23) Other injury of muscle(s) and tendon(s) of the rotator cuff of left shoulder, subsequent encounter (07/28/23) Physical Therapy Treatment Note PT-OP-A Visit Information Start: 07/21/23 17:13 Freq: Status: Active Protocol: Document 07/28/23 12:56 AB (Rec: 07/28/23 16:27 AB [id number]) Out-Patient Physical Therapy Visit Information Visit Information Visit Type Treatment Note Visit Note ccess Code: [id number] Visit Start Time 14:34 Visit Stop Time 15:16 Visit Number 3 Number of FILTER CLOTH MAKER Visits 2 Evaluation Information Evaluation Date 07/21/23 PT-OP-B Current Condition Start: 07/21/23 17:13 Freq: Status: Active Protocol: Document 07/21/23 16:00 DCW (Rec: 07/21/23 17:37 DCW [id number]) Current Condition History of Current Condition Onset Date Two month history Current Complaints Left shoulder pain and immobility History of Current Condition Pt is a 72 year old female presenting with a two month history of left shoulder pain and stiffness. Pt notes insidious onset, no initial injury, but has been worsening the last two months. Pt reports a general soreness rates 1-2/10 at rest, but worse with performing certain activities. Does admit it feels better after getting up and moving it more. Painful to carry anything in her left hand, pain when trying to don/ doff clothes, or attempting to lift her left arm overhead. PT-OP-C Subjective Start: 07/21/23 17:13 Freq: Status: Active Protocol: Document 07/28/23 12:56 AB (Rec: 07/28/23 16:27 AB [id number]) OP-PT Subjective Patient Comments Patient Comments Patient reports the shoulder is a little sore this morning, did all the exercises yesterday. 100 deg AROM left shoulder flexion start of session. PT-OP-F Manual Assessment Start: 07/21/23 17:13 Freq: Status: Active Protocol: Document 07/21/23 16:00 DCW (Rec: 07/21/23 17:37 DCW [id number]) Manual Assessments Soft Tissue Assessment Soft Tissue Mobility Assessment Tenderness to palpation 3/4: Wincing and withdraw along left supraspinatus, infraspinatus, subscapularis, biceps, upper trap Joint Mobility Assessment Joint Mobility Assessment grinding/popping/rough surface movement with passive left GH mobility PT-OP-K Range of Motion Start: 07/21/23 17:13 Freq: Status: Active Protocol: Document 07/21/23 16:00 DCW (Rec: 07/21/23 17:37 DCW [id number]) Shoulder Goniometric Range of Motion Shoulder Left Passive Shoulder ROM WFL No Testing Position Supine Flexion 125 Abduction 42 Right Active Shoulder ROM WFL No Testing Position Sitting Flexion 112 Abduction 120 External Rotation at 0 degrees Abduction 70 Internal Rotation Behind Back (text) T11 Left Active Shoulder ROM WFL No Testing Position Sitting Flexion 92 Abduction 74 External Rotation at 0 degrees Abduction 38 Internal Rotation Behind Back (text) T11 PT-OP-L Special Tests Start: 07/21/23 17:13 Freq: Status: Active Protocol: Document 07/21/23 16:00 DCW (Rec: 07/21/23 17:37 DCW [id number]) Special Tests Shoulder Special Tests Speed's Biceps Test Results Positive Left Passive ER Rotator Cuff Test Results Positive Left Lift-Off Rotator Cuff Test Results Positive Left Chance Ventura Impingement Test Results Positive Left Grind Labrum Test Results Positive Left Empty Can Test Results Positive Left Belly Press Test Results Positive Left AC Joint Compression Test Results Negative PT-OP-M Strength Start: 07/21/23 17:13 Freq: Status: Active Protocol: Document 07/21/23 16:00 DCW (Rec: 07/21/23 17:37 DCW [id number]) Shoulder Strength Shoulder Manual Muscle Testing Left Flexion 2+ Poor+ Abduction (C5) 2+ Poor+ External Rotation 2+ Poor+ Internal Rotation 2+ Poor+ PT-OP-Q Treatments Start: 07/21/23 17:13 Freq: Status: Active Protocol: Document 07/28/23 12:56 AB (Rec: 07/28/23 16:27 AB [id number]) Therapeutic Exercises Supine Exercises shoulder ER with dowel Reps/Minutes 60 seconds X1 Sitting Exercises body over UE ER with UE on table PROM Side left Reps/Minutes 60 seconds X 1 Comments verbal cues seated shoulder ER with dowel Side left Reps/Minutes X1 60 seconds Table slides Sitting Exercise Name Table slides Side left Standing Exercises wall slide flexion Side bilateral Reps/Minutes X10 Row Side bilateral Resistance level 2 orange latex free band Reps/Minutes 3X10 Comments verbal cues to avoid UT activation Manual Therapy Treatment Soft Tissue Mobilization left periscapular muscles Mobilization Type Cross-Friction,Rolling Intensity/Depth Moderate Body Position Sidelying Comments monitored for pain left post cuff Mobilization Type Cross-Friction,Rolling Intensity/Depth Moderate Body Position Sidelying Comments monitored for pain left pec Body Location pec minor left shoulder Intensity/Depth Moderate Body Position Hooklying Comments monitored for pain Joint Mobilizations scapular mobilization Joint left UE Direction depression and adduction Grade III Reps/Duration 15 Gh mobilizations Joint left GH joint Direction ap and inf Grade III Body Position Hooklying Reps/Duration 12 each PT-OP-T Assessment and Plan Start: 07/21/23 17:13 Freq: Status: Active Protocol: Document 07/28/23 12:56 AB (Rec: 07/28/23 16:27 AB [id number]) Physical Therapy Assessment Goals Two Impairment Severely limited left shoulder ROM in flexion (92?) and abduction (74?) Investigation Division Captain Goal (LTG) Pt to improve left shoulder AROM flexion and abduction to > 120? in order to improve ability to perform overhead activities and don/doff jacket without pain LTG Duration 10/19/23 One Impairment Pt does not have an appropriate home exercise program Short Term Goal (STG) Pt to be independent and compliant with an appropriate HEP STG Duration 08/21/23 Assessment Summary Assessment 121 deg AROM left shoulder flexion end of session should allow patient to reach items placed at higher levels in the home. Physical Therapy Plan Frequency and Duration Frequency of Treatment 2x/Week Plan of Care Start Date 07/21/23 Plan of Care End Date 10/19/23 Next Visit Focus/Plan Next Note Type Treatment Note Next Visit Plan head elevated due to COPD Possibly wall slide to HEP Shoulder AROM/PROM, strengthening, STM
--- NOTE | 2023-08-02 11:59 | PT.OTN ---
Current Diagnoses Pain in left shoulder (08/02/23) Stiffness of left shoulder, not elsewhere classified (08/02/23) Other injury of muscle(s) and tendon(s) of the rotator cuff of left shoulder, subsequent encounter (08/02/23) Physical Therapy Treatment Note PT-OP-A Visit Information Start: 07/21/23 17:13 Freq: Status: Active Protocol: Document 08/02/23 11:15 DCW (Rec: 08/02/23 11:59 DCW [id number]) Out-Patient Physical Therapy Visit Information Visit Information Visit Type Treatment Note Visit Start Time 11:15 Visit Stop Time 12:00 Visit Number 4 Number of FINAL BLOCK PRESS OPERATOR Visits 0 Evaluation Information Evaluation Date 07/21/23 Precautions Precautions *Latex allergy* PT-OP-B Current Condition Start: 07/21/23 17:13 Freq: Status: Active Protocol: Document 07/21/23 16:00 DCW (Rec: 07/21/23 17:37 DCW [id number]) Current Condition History of Current Condition Onset Date Two month history Current Complaints Left shoulder pain and immobility History of Current Condition Pt is a 72 year old female presenting with a two month history of left shoulder pain and stiffness. Pt notes insidious onset, no initial injury, but has been worsening the last two months. Pt reports a general soreness rates 1-2/10 at rest, but worse with performing certain activities. Does admit it feels better after getting up and moving it more. Painful to carry anything in her left hand, pain when trying to don/ doff clothes, or attempting to lift her left arm overhead. PT-OP-C Subjective Start: 07/21/23 17:13 Freq: Status: Active Protocol: Document 08/02/23 11:15 DCW (Rec: 08/02/23 11:59 DCW [id number]) OP-PT Subjective Patient Comments Patient Comments It's still there, but it's more just sore than pain. PT-OP-F Manual Assessment Start: 07/21/23 17:13 Freq: Status: Active Protocol: Document 07/21/23 16:00 DCW (Rec: 07/21/23 17:37 DCW [id number]) Manual Assessments Soft Tissue Assessment Soft Tissue Mobility Assessment Tenderness to palpation 3/4: Wincing and withdraw along left supraspinatus, infraspinatus, subscapularis, biceps, upper trap Joint Mobility Assessment Joint Mobility Assessment grinding/popping/rough surface movement with passive left GH mobility PT-OP-K Range of Motion Start: 07/21/23 17:13 Freq: Status: Active Protocol: Document 07/21/23 16:00 DCW (Rec: 07/21/23 17:37 DCW [id number]) Shoulder Goniometric Range of Motion Shoulder Left Passive Shoulder ROM WFL No Testing Position Supine Flexion 125 Abduction 42 Right Active Shoulder ROM WFL No Testing Position Sitting Flexion 112 Abduction 120 External Rotation at 0 degrees Abduction 70 Internal Rotation Behind Back (text) T11 Left Active Shoulder ROM WFL No Testing Position Sitting Flexion 92 Abduction 74 External Rotation at 0 degrees Abduction 38 Internal Rotation Behind Back (text) T11 PT-OP-L Special Tests Start: 07/21/23 17:13 Freq: Status: Active Protocol: Document 07/21/23 16:00 DCW (Rec: 07/21/23 17:37 DCW [id number]) Special Tests Shoulder Special Tests Speed's Biceps Test Results Positive Left Passive ER Rotator Cuff Test Results Positive Left Lift-Off Rotator Cuff Test Results Positive Left Chance Ventura Impingement Test Results Positive Left Grind Labrum Test Results Positive Left Empty Can Test Results Positive Left Belly Press Test Results Positive Left AC Joint Compression Test Results Negative PT-OP-M Strength Start: 07/21/23 17:13 Freq: Status: Active Protocol: Document 07/21/23 16:00 DCW (Rec: 07/21/23 17:37 DCW [id number]) Shoulder Strength Shoulder Manual Muscle Testing Left Flexion 2+ Poor+ Abduction (C5) 2+ Poor+ External Rotation 2+ Poor+ Internal Rotation 2+ Poor+ PT-OP-Q Treatments Start: 07/21/23 17:13 Freq: Status: Active Protocol: Document 08/02/23 11:15 DCW (Rec: 08/02/23 11:59 DCW [id number]) Cardio Equipment Upper Body Ergometer (UBE) Duration (Minutes) 4 RPM 60 Seat Position 13 Height 2 Therapeutic Exercises Supine Exercises AA shoulder flexion Supine Exercise Name Flexion /c PVC Side bilateral Sitting Exercises Pulleys Sitting Exercise Name PROM Pulleys - Flexion Standing Exercises Pec Stretch Standing Exercise Name Corner Pec stretch Side left Adduction Standing Exercise Name Shoulder Adduction Side left Resistance [place] Extension Standing Exercise Name Shoulder Extension Side bilateral Resistance [place] Manual Therapy Treatment Soft Tissue Mobilization left periscapular muscles Mobilization Type Cross-Friction,Rolling Intensity/Depth Moderate Body Position Sidelying Comments monitored for pain left post cuff Mobilization Type Cross-Friction,Rolling Intensity/Depth Moderate Body Position Sidelying Comments monitored for pain left pec Body Location pec minor left shoulder Intensity/Depth Moderate Body Position Hooklying Comments monitored for pain Joint Mobilizations scapular mobilization Joint left UE Direction depression and adduction Grade III Reps/Duration 15 Gh mobilizations Joint left GH joint Direction ap and inf Grade III Body Position Hooklying Reps/Duration 12 each PT-OP-T Assessment and Plan Start: 07/21/23 17:13 Freq: Status: Active Protocol: Document 08/02/23 11:15 DCW (Rec: 08/02/23 11:59 DCW [id number]) Physical Therapy Assessment Impairments Impairments Activity Tolerance,Functional Activities,Functional Mobility ,Pain,Posture,ROM,Soft Tissue Mobility,Strength,Tone Goals Two Impairment Severely limited left shoulder ROM in flexion (92?) and abduction (74?) Detention Goal (LTG) Pt to improve left shoulder AROM flexion and abduction to > 120? in order to improve ability to perform overhead activities and don/doff jacket without pain LTG Duration 10/19/23 One Impairment Pt does not have an appropriate home exercise program Short Term Goal (STG) Pt to be independent and compliant with an appropriate HEP STG Duration 08/21/23 Assessment Summary Assessment Pt responding very well to stretching and STM, noting decreased overall pain, improving ROM. Continues to be limited with some motions, don/doff jacket being biggest limited on a day-to-day basis. Continue to focus on improving ROM and strength Physical Therapy Plan Frequency and Duration Frequency of Treatment 2x/Week Plan of Care Start Date 07/21/23 Plan of Care End Date 10/19/23 Next Visit Focus/Plan Next Note Type Treatment Note Next Visit Plan head elevated due to COPD Possibly wall slide to HEP Shoulder AROM/PROM, strengthening, STM
--- NOTE | 2023-08-04 11:57 | PT.OTN ---
Current Diagnoses Pain in left shoulder (08/04/23) Stiffness of left shoulder, not elsewhere classified (08/04/23) Other injury of muscle(s) and tendon(s) of the rotator cuff of left shoulder, subsequent encounter (08/04/23) Physical Therapy Treatment Note PT-OP-A Visit Information Start: 07/21/23 17:13 Freq: Status: Active Protocol: Document 08/04/23 11:15 DCW (Rec: 08/04/23 11:57 DCW [id number]) Out-Patient Physical Therapy Visit Information Visit Information Visit Type Treatment Note Visit Start Time 11:15 Visit Stop Time 12:00 Visit Number 5 Number of OIL FIRE SPECIALIST Visits 0 Evaluation Information Evaluation Date 07/21/23 Precautions Precautions *Latex allergy* PT-OP-B Current Condition Start: 07/21/23 17:13 Freq: Status: Active Protocol: Document 07/21/23 16:00 DCW (Rec: 07/21/23 17:37 DCW [id number]) Current Condition History of Current Condition Onset Date Two month history Current Complaints Left shoulder pain and immobility History of Current Condition Pt is a 72 year old female presenting with a two month history of left shoulder pain and stiffness. Pt notes insidious onset, no initial injury, but has been worsening the last two months. Pt reports a general soreness rates 1-2/10 at rest, but worse with performing certain activities. Does admit it feels better after getting up and moving it more. Painful to carry anything in her left hand, pain when trying to don/ doff clothes, or attempting to lift her left arm overhead. PT-OP-C Subjective Start: 07/21/23 17:13 Freq: Status: Active Protocol: Document 08/04/23 11:15 DCW (Rec: 08/04/23 11:57 DCW [id number]) OP-PT Subjective Patient Comments Patient Comments Pt admits she is actually pretty sore today, reports that she did limited HEP yesterday because she's so sore. PT-OP-F Manual Assessment Start: 07/21/23 17:13 Freq: Status: Active Protocol: Document 07/21/23 16:00 DCW (Rec: 07/21/23 17:37 DCW [id number]) Manual Assessments Soft Tissue Assessment Soft Tissue Mobility Assessment Tenderness to palpation 3/4: Wincing and withdraw along left supraspinatus, infraspinatus, subscapularis, biceps, upper trap Joint Mobility Assessment Joint Mobility Assessment grinding/popping/rough surface movement with passive left GH mobility PT-OP-K Range of Motion Start: 07/21/23 17:13 Freq: Status: Active Protocol: Document 07/21/23 16:00 DCW (Rec: 07/21/23 17:37 DCW [id number]) Shoulder Goniometric Range of Motion Shoulder Left Passive Shoulder ROM WFL No Testing Position Supine Flexion 125 Abduction 42 Right Active Shoulder ROM WFL No Testing Position Sitting Flexion 112 Abduction 120 External Rotation at 0 degrees Abduction 70 Internal Rotation Behind Back (text) T11 Left Active Shoulder ROM WFL No Testing Position Sitting Flexion 92 Abduction 74 External Rotation at 0 degrees Abduction 38 Internal Rotation Behind Back (text) T11 PT-OP-L Special Tests Start: 07/21/23 17:13 Freq: Status: Active Protocol: Document 07/21/23 16:00 DCW (Rec: 07/21/23 17:37 DCW [id number]) Special Tests Shoulder Special Tests Speed's Biceps Test Results Positive Left Passive ER Rotator Cuff Test Results Positive Left Lift-Off Rotator Cuff Test Results Positive Left Chance Ventura Impingement Test Results Positive Left Grind Labrum Test Results Positive Left Empty Can Test Results Positive Left Belly Press Test Results Positive Left AC Joint Compression Test Results Negative PT-OP-M Strength Start: 07/21/23 17:13 Freq: Status: Active Protocol: Document 07/21/23 16:00 DCW (Rec: 07/21/23 17:37 DCW [id number]) Shoulder Strength Shoulder Manual Muscle Testing Left Flexion 2+ Poor+ Abduction (C5) 2+ Poor+ External Rotation 2+ Poor+ Internal Rotation 2+ Poor+ PT-OP-Q Treatments Start: 07/21/23 17:13 Freq: Status: Active Protocol: Document 08/04/23 11:15 DCW (Rec: 08/04/23 11:57 DCW [id number]) Cardio Equipment Upper Body Ergometer (UBE) Duration (Minutes) 4 RPM 60 Seat Position 13 Height 2 Therapeutic Exercises Sitting Exercises Pulleys Sitting Exercise Name PROM Pulleys - Flexion Standing Exercises ER Standing Exercise Name Shoulder ER Side right Resistance [place] Abduction Standing Exercise Name Shoulder Abduction Side bilateral Resistance 1# Flexion Standing Exercise Name Shoulder Flexion Side bilateral Resistance 1# Comments Pain-free ROM Pec Stretch Standing Exercise Name Corner Pec stretch Side left Manual Therapy Treatment Soft Tissue Mobilization left periscapular muscles Mobilization Type Cross-Friction,Rolling Intensity/Depth Moderate Body Position Sidelying Comments monitored for pain left post cuff Mobilization Type Cross-Friction,Rolling Intensity/Depth Moderate Body Position Sidelying Comments monitored for pain left pec Body Location pec minor left shoulder Intensity/Depth Moderate Body Position Hooklying Comments monitored for pain Joint Mobilizations scapular mobilization Joint left UE Direction depression and adduction Grade III Reps/Duration 15 Gh mobilizations Joint left GH joint Direction ap and inf Grade III Body Position Hooklying Reps/Duration 12 each PT-OP-T Assessment and Plan Start: 07/21/23 17:13 Freq: Status: Active Protocol: Document 08/04/23 11:15 DCW (Rec: 08/04/23 11:57 DCW [id number]) Physical Therapy Assessment Impairments Impairments Activity Tolerance,Functional Activities,Functional Mobility ,Pain,Posture,ROM,Soft Tissue Mobility,Strength,Tone Goals Two Impairment Severely limited left shoulder ROM in flexion (92?) and abduction (74?) Retirement Goal (LTG) Pt to improve left shoulder AROM flexion and abduction to > 120? in order to improve ability to perform overhead activities and don/doff jacket without pain LTG Duration 10/19/23 One Impairment Pt does not have an appropriate home exercise program Short Term Goal (STG) Pt to be independent and compliant with an appropriate HEP STG Duration 08/21/23 Assessment Summary Assessment Very good response to STM today, pt noted significant improvement in overall pain and mobility. Continue to work on pain-free shoulder ROM and gentle strengthening. Physical Therapy Plan Frequency and Duration Frequency of Treatment 2x/Week Plan of Care Start Date 07/21/23 Plan of Care End Date 10/19/23 Next Visit Focus/Plan Next Note Type Treatment Note Next Visit Plan head elevated due to COPD Possibly wall slide to HEP Shoulder AROM/PROM, strengthening, STM
--- NOTE | 2023-08-09 16:44 | PT.OTN ---
Current Diagnoses Pain in left shoulder (08/09/23) Stiffness of left shoulder, not elsewhere classified (08/09/23) Other injury of muscle(s) and tendon(s) of the rotator cuff of left shoulder, subsequent encounter (08/09/23) Physical Therapy Treatment Note PT-OP-A Visit Information Start: 07/21/23 17:13 Freq: Status: Active Protocol: Document 08/09/23 16:00 DCW (Rec: 08/09/23 16:43 DCW [id number]) Out-Patient Physical Therapy Visit Information Visit Information Visit Type Treatment Note Visit Start Time 16:00 Visit Stop Time 16:45 Visit Number 6 Number of DIP LUBE OPERATOR Visits 0 Evaluation Information Evaluation Date 07/21/23 Precautions Precautions *Latex allergy* PT-OP-B Current Condition Start: 07/21/23 17:13 Freq: Status: Active Protocol: Document 07/21/23 16:00 DCW (Rec: 07/21/23 17:37 DCW [id number]) Current Condition History of Current Condition Onset Date Two month history Current Complaints Left shoulder pain and immobility History of Current Condition Pt is a 72 year old female presenting with a two month history of left shoulder pain and stiffness. Pt notes insidious onset, no initial injury, but has been worsening the last two months. Pt reports a general soreness rates 1-2/10 at rest, but worse with performing certain activities. Does admit it feels better after getting up and moving it more. Painful to carry anything in her left hand, pain when trying to don/ doff clothes, or attempting to lift her left arm overhead. PT-OP-C Subjective Start: 07/21/23 17:13 Freq: Status: Active Protocol: Document 08/09/23 16:00 DCW (Rec: 08/09/23 16:43 DCW [id number]) OP-PT Subjective Patient Comments Patient Comments Pt notes fairly stressful life events going on, additionally notes her shoulder is very sore today. PT-OP-F Manual Assessment Start: 07/21/23 17:13 Freq: Status: Active Protocol: Document 07/21/23 16:00 DCW (Rec: 07/21/23 17:37 DCW [id number]) Manual Assessments Soft Tissue Assessment Soft Tissue Mobility Assessment Tenderness to palpation 3/4: Wincing and withdraw along left supraspinatus, infraspinatus, subscapularis, biceps, upper trap Joint Mobility Assessment Joint Mobility Assessment grinding/popping/rough surface movement with passive left GH mobility PT-OP-K Range of Motion Start: 07/21/23 17:13 Freq: Status: Active Protocol: Document 07/21/23 16:00 DCW (Rec: 07/21/23 17:37 DCW [id number]) Shoulder Goniometric Range of Motion Shoulder Left Passive Shoulder ROM WFL No Testing Position Supine Flexion 125 Abduction 42 Right Active Shoulder ROM WFL No Testing Position Sitting Flexion 112 Abduction 120 External Rotation at 0 degrees Abduction 70 Internal Rotation Behind Back (text) T11 Left Active Shoulder ROM WFL No Testing Position Sitting Flexion 92 Abduction 74 External Rotation at 0 degrees Abduction 38 Internal Rotation Behind Back (text) T11 PT-OP-L Special Tests Start: 07/21/23 17:13 Freq: Status: Active Protocol: Document 07/21/23 16:00 DCW (Rec: 07/21/23 17:37 DCW [id number]) Special Tests Shoulder Special Tests Speed's Biceps Test Results Positive Left Passive ER Rotator Cuff Test Results Positive Left Lift-Off Rotator Cuff Test Results Positive Left Chance Ventura Impingement Test Results Positive Left Grind Labrum Test Results Positive Left Empty Can Test Results Positive Left Belly Press Test Results Positive Left AC Joint Compression Test Results Negative PT-OP-M Strength Start: 07/21/23 17:13 Freq: Status: Active Protocol: Document 07/21/23 16:00 DCW (Rec: 07/21/23 17:37 DCW [id number]) Shoulder Strength Shoulder Manual Muscle Testing Left Flexion 2+ Poor+ Abduction (C5) 2+ Poor+ External Rotation 2+ Poor+ Internal Rotation 2+ Poor+ PT-OP-Q Treatments Start: 07/21/23 17:13 Freq: Status: Active Protocol: Document 08/09/23 16:00 DCW (Rec: 08/09/23 16:43 DCW [id number]) Cardio Equipment Upper Body Ergometer (UBE) Duration (Minutes) 5 RPM 60 Seat Position 11 Height 3 Therapeutic Exercises Sitting Exercises Pulleys Sitting Exercise Name PROM Pulleys - Flexion, Abduction Standing Exercises ER Standing Exercise Name Shoulder ER/IR Side bilateral Resistance [place] wall slide flexion Standing Exercise Name Wall Slide - Flexion, Abduction Side bilateral Reps/Minutes X10 Manual Therapy Treatment Soft Tissue Mobilization left periscapular muscles Mobilization Type Cross-Friction,Rolling Intensity/Depth Moderate Body Position Supine Comments monitored for pain left post cuff Mobilization Type Cross-Friction,Rolling Intensity/Depth Moderate Body Position Supine Comments monitored for pain left pec Body Location pec minor left shoulder Intensity/Depth Moderate Body Position Hooklying Comments monitored for pain Joint Mobilizations scapular mobilization Joint left UE Direction depression and adduction Grade III Reps/Duration 15 Gh mobilizations Joint left GH joint Direction ap and inf Grade III Body Position Hooklying Reps/Duration 12 each PT-OP-T Assessment and Plan Start: 07/21/23 17:13 Freq: Status: Active Protocol: Document 08/09/23 16:00 DCW (Rec: 08/09/23 16:43 DCW [id number]) Physical Therapy Assessment Impairments Impairments Activity Tolerance,Functional Activities,Functional Mobility ,Pain,Posture,ROM,Soft Tissue Mobility,Strength,Tone Goals Two Impairment Severely limited left shoulder ROM in flexion (92?) and abduction (74?) Halfway Goal (LTG) Pt to improve left shoulder AROM flexion and abduction to > 120? in order to improve ability to perform overhead activities and don/doff jacket without pain LTG Duration 10/19/23 One Impairment Pt does not have an appropriate home exercise program Short Term Goal (STG) Pt to be independent and compliant with an appropriate HEP STG Duration 08/21/23 Assessment Summary Assessment Pt responding somewhat well to treatment, increasing overall pain-free ROM. Good response to joint mobs and STM. Continue to adjust HEP as needed Physical Therapy Plan Frequency and Duration Frequency of Treatment 2x/Week Plan of Care Start Date 07/21/23 Plan of Care End Date 10/19/23 Therapeutic Interventions Therapeutic Interventions Home Exercise Program,Joint Mobilizations,Manual Therapy, Neuromuscular Re-education, Patient/Caregiver Education, Self-Care/Home Management,Soft Tissue Mobilization, Therapeutic Activities, Therapeutic Exercises Modalities Cold Pack/Ice Massage,Electric Stimulation,Hot Packs, Ultrasound Next Visit Focus/Plan Next Note Type Treatment Note Next Visit Plan head elevated due to COPD Shoulder AROM/PROM, strengthening, STM
--- NOTE | 2023-08-12 16:28 | PT.OTN ---
Current Diagnoses Pain in left shoulder (08/12/23) Stiffness of left shoulder, not elsewhere classified (08/12/23) Other injury of muscle(s) and tendon(s) of the rotator cuff of left shoulder, subsequent encounter (08/12/23) Physical Therapy Treatment Note PT-OP-A Visit Information Start: 07/21/23 17:13 Freq: Status: Active Protocol: Document 08/12/23 14:22 AB (Rec: 08/12/23 16:27 AB [id number]) Out-Patient Physical Therapy Visit Information Visit Information Visit Type Treatment Note Visit Note ccess Code: [id number] Visit Start Time 15:21 Visit Stop Time 16:05 Visit Number 7 Number of AUTISM MOTOR SPECIALIST Visits 1 Evaluation Information Evaluation Date 07/21/23 Precautions Precautions *Latex allergy* PT-OP-B Current Condition Start: 07/21/23 17:13 Freq: Status: Active Protocol: Document 07/21/23 16:00 DCW (Rec: 07/21/23 17:37 DCW [id number]) Current Condition History of Current Condition Onset Date Two month history Current Complaints Left shoulder pain and immobility History of Current Condition Pt is a 72 year old female presenting with a two month history of left shoulder pain and stiffness. Pt notes insidious onset, no initial injury, but has been worsening the last two months. Pt reports a general soreness rates 1-2/10 at rest, but worse with performing certain activities. Does admit it feels better after getting up and moving it more. Painful to carry anything in her left hand, pain when trying to don/ doff clothes, or attempting to lift her left arm overhead. PT-OP-C Subjective Start: 07/21/23 17:13 Freq: Status: Active Protocol: Document 08/12/23 14:22 AB (Rec: 08/12/23 16:27 AB [id number]) OP-PT Subjective Patient Comments Patient Comments Patient reports she has a 10- 20% improvement and is no longer taking Tylenol twice a day. AROM left shoulder flexion 115 deg start of session. PT-OP-F Manual Assessment Start: 07/21/23 17:13 Freq: Status: Active Protocol: Document 07/21/23 16:00 DCW (Rec: 07/21/23 17:37 DCW [id number]) Manual Assessments Soft Tissue Assessment Soft Tissue Mobility Assessment Tenderness to palpation 3/4: Wincing and withdraw along left supraspinatus, infraspinatus, subscapularis, biceps, upper trap Joint Mobility Assessment Joint Mobility Assessment grinding/popping/rough surface movement with passive left GH mobility PT-OP-K Range of Motion Start: 07/21/23 17:13 Freq: Status: Active Protocol: Document 07/21/23 16:00 DCW (Rec: 07/21/23 17:37 DCW [id number]) Shoulder Goniometric Range of Motion Shoulder Left Passive Shoulder ROM WFL No Testing Position Supine Flexion 125 Abduction 42 Right Active Shoulder ROM WFL No Testing Position Sitting Flexion 112 Abduction 120 External Rotation at 0 degrees Abduction 70 Internal Rotation Behind Back (text) T11 Left Active Shoulder ROM WFL No Testing Position Sitting Flexion 92 Abduction 74 External Rotation at 0 degrees Abduction 38 Internal Rotation Behind Back (text) T11 PT-OP-L Special Tests Start: 07/21/23 17:13 Freq: Status: Active Protocol: Document 07/21/23 16:00 DCW (Rec: 07/21/23 17:37 DCW [id number]) Special Tests Shoulder Special Tests Speed's Biceps Test Results Positive Left Passive ER Rotator Cuff Test Results Positive Left Lift-Off Rotator Cuff Test Results Positive Left Chance Ventuar Impingement Test Results Positive Left Grind Labrum Test Results Positive Left Empty Can Test Results Positive Left Belly Press Test Results Positive Left AC Joint Compression Test Results Negative PT-OP-M Strength Start: 07/21/23 17:13 Freq: Status: Active Protocol: Document 07/21/23 16:00 DCW (Rec: 07/21/23 17:37 DCW [id number]) Shoulder Strength Shoulder Manual Muscle Testing Left Flexion 2+ Poor+ Abduction (C5) 2+ Poor+ External Rotation 2+ Poor+ Internal Rotation 2+ Poor+ PT-OP-Q Treatments Start: 07/21/23 17:13 Freq: Status: Active Protocol: Document 08/12/23 14:22 AB (Rec: 08/12/23 16:27 AB [id number]) Cardio Equipment Upper Body Ergometer (UBE) Duration (Minutes) 5 RPM 90 Height 5 Other standing Therapeutic Exercises Supine Exercises AROM IR Supine Exercise Name focus on avoiding ant translation of humerus Side left Reps/Minutes X10 Comments self tactile cues for avoiding ant translation of humerus. Sidelying Exercises sidelying shoulder ER AROM Side left Reps/Minutes X10 Comments Verbal and tactile cues Standing Exercises high row Side bilateral Resistance level 3 latex free band Reps/Minutes 2X10 Pec Stretch Standing Exercise Name at wall 90/90 not regla, at wall with UE at 40 deg regla well Side left Reps/Minutes 60 X 2 Comments Verbal and visual cues wall slide flexion Standing Exercise Name Wall Slide - Flexion, Abduction Side left Reps/Minutes X10 Comments Verbal cues to step to the wall, lift off step back and lower Row Side bilateral Resistance level 3 green latex free band Reps/Minutes 1X10 Manual Therapy Treatment Soft Tissue Mobilization left periscapular muscles Mobilization Type Cross-Friction,Rolling Intensity/Depth Moderate Body Position Supine Comments monitored for pain left post cuff Mobilization Type Cross-Friction,Rolling Intensity/Depth Moderate Body Position Supine Comments monitored for pain left pec Body Location pec minor left shoulder Intensity/Depth Moderate Body Position Hooklying Comments monitored for pain Joint Mobilizations scapular mobilization Joint left UE Direction depression and adduction Grade III Reps/Duration 15 Gh mobilizations Joint left GH joint Direction ap and inf Grade III Body Position Hooklying Reps/Duration 12 each PT-OP-T Assessment and Plan Start: 07/21/23 17:13 Freq: Status: Active Protocol: Document 08/12/23 14:22 AB (Rec: 08/12/23 16:27 AB [id number]) Physical Therapy Assessment Goals Two Impairment Severely limited left shoulder ROM in flexion (92?) and abduction (74?) Campaign Associate Goal (LTG) Pt to improve left shoulder AROM flexion and abduction to > 120? in order to improve ability to perform overhead activities and don/doff jacket without pain LTG Duration 10/19/23 One Impairment Pt does not have an appropriate home exercise program Short Term Goal (STG) Pt to be independent and compliant with an appropriate HEP STG Duration 08/21/23 Assessment Summary Assessment AROM left shoulder flexion 105 deg end of session, likely due to fatigue. Patient with reports of needing to sit back down post upper body ergometer due to COPD. Pt positioned with UE's elevated and O2 sat obtained. Patient at 93% and reported feeling better prior to leaving session. Patient attributes to not taking one of her medications for COPD and the pollen. Physical Therapy Plan Frequency and Duration Frequency of Treatment 2x/Week Plan of Care Start Date 07/21/23 Plan of Care End Date 10/19/23 Next Visit Focus/Plan Next Note Type Treatment Note Next Visit Plan head elevated due to COPD Shoulder AROM/PROM, strengthening, STM
--- NOTE | 2023-08-18 14:30 | PT.OTN ---
Current Diagnoses Pain in left shoulder (08/18/23) Stiffness of left shoulder, not elsewhere classified (08/18/23) Other injury of muscle(s) and tendon(s) of the rotator cuff of left shoulder, subsequent encounter (08/18/23) Physical Therapy Treatment Note PT-OP-A Visit Information Start: 07/21/23 17:13 Freq: Status: Active Protocol: Document 08/18/23 13:45 DCW (Rec: 08/18/23 14:29 DCW [id number]) Out-Patient Physical Therapy Visit Information Visit Information Visit Type Treatment Note Visit Start Time 13:45 Visit Stop Time 14:30 Visit Number 8 Number of MANAGER CANCER Visits 0 Evaluation Information Evaluation Date 07/21/23 Precautions Precautions *Latex allergy* PT-OP-B Current Condition Start: 07/21/23 17:13 Freq: Status: Active Protocol: Document 07/21/23 16:00 DCW (Rec: 07/21/23 17:37 DCW [id number]) Current Condition History of Current Condition Onset Date Two month history Current Complaints Left shoulder pain and immobility History of Current Condition Pt is a 72 year old female presenting with a two month history of left shoulder pain and stiffness. Pt notes insidious onset, no initial injury, but has been worsening the last two months. Pt reports a general soreness rates 1-2/10 at rest, but worse with performing certain activities. Does admit it feels better after getting up and moving it more. Painful to carry anything in her left hand, pain when trying to don/ doff clothes, or attempting to lift her left arm overhead. PT-OP-C Subjective Start: 07/21/23 17:13 Freq: Status: Active Protocol: Document 08/18/23 13:45 DCW (Rec: 08/18/23 14:29 DCW [id number]) OP-PT Subjective Patient Comments Patient Comments Pt reports she has been doing better, has been doing better with her home exercises. PT-OP-F Manual Assessment Start: 07/21/23 17:13 Freq: Status: Active Protocol: Document 07/21/23 16:00 DCW (Rec: 07/21/23 17:37 DCW [id number]) Manual Assessments Soft Tissue Assessment Soft Tissue Mobility Assessment Tenderness to palpation 3/4: Wincing and withdraw along left supraspinatus, infraspinatus, subscapularis, biceps, upper trap Joint Mobility Assessment Joint Mobility Assessment grinding/popping/rough surface movement with passive left GH mobility PT-OP-K Range of Motion Start: 07/21/23 17:13 Freq: Status: Active Protocol: Document 07/21/23 16:00 DCW (Rec: 07/21/23 17:37 DCW [id number]) Shoulder Goniometric Range of Motion Shoulder Left Passive Shoulder ROM WFL No Testing Position Supine Flexion 125 Abduction 42 Right Active Shoulder ROM WFL No Testing Position Sitting Flexion 112 Abduction 120 External Rotation at 0 degrees Abduction 70 Internal Rotation Behind Back (text) T11 Left Active Shoulder ROM WFL No Testing Position Sitting Flexion 92 Abduction 74 External Rotation at 0 degrees Abduction 38 Internal Rotation Behind Back (text) T11 PT-OP-L Special Tests Start: 07/21/23 17:13 Freq: Status: Active Protocol: Document 07/21/23 16:00 DCW (Rec: 07/21/23 17:37 DCW [id number]) Special Tests Shoulder Special Tests Speed's Biceps Test Results Positive Left Passive ER Rotator Cuff Test Results Positive Left Lift-Off Rotator Cuff Test Results Positive Left Chance Ventura Impingement Test Results Positive Left Grind Labrum Test Results Positive Left Empty Can Test Results Positive Left Belly Press Test Results Positive Left AC Joint Compression Test Results Negative PT-OP-M Strength Start: 07/21/23 17:13 Freq: Status: Active Protocol: Document 07/21/23 16:00 DCW (Rec: 07/21/23 17:37 DCW [id number]) Shoulder Strength Shoulder Manual Muscle Testing Left Flexion 2+ Poor+ Abduction (C5) 2+ Poor+ External Rotation 2+ Poor+ Internal Rotation 2+ Poor+ PT-OP-Q Treatments Start: 07/21/23 17:13 Freq: Status: Active Protocol: Document 08/18/23 13:45 DCW (Rec: 08/18/23 14:29 DCW [id number]) Cardio Equipment Upper Body Ergometer (UBE) Duration (Minutes) 5 RPM 60 Seat Position 12 Height 3 Therapeutic Exercises Supine Exercises AA shoulder flexion Supine Exercise Name Flexion /c PVC Side bilateral Prone Exercises I's, Y's, T's Prone Exercise Name I's, Y's, T's Side left Resistance 0# Sitting Exercises Pulleys Sitting Exercise Name PROM Pulleys - Flexion, Abduction Standing Exercises Abduction Standing Exercise Name Shoulder Abduction Side bilateral Resistance 2# Flexion Standing Exercise Name Shoulder Flexion Side bilateral Resistance 2# Comments Pain-free ROM Manual Therapy Treatment Soft Tissue Mobilization left periscapular muscles Mobilization Type Cross-Friction,Rolling Intensity/Depth Moderate Body Position Supine Comments monitored for pain left post cuff Mobilization Type Cross-Friction,Rolling Intensity/Depth Moderate Body Position Supine Comments monitored for pain left pec Body Location pec minor left shoulder Intensity/Depth Moderate Body Position Hooklying Comments monitored for pain Joint Mobilizations scapular mobilization Joint left UE Direction depression and adduction Grade III Reps/Duration 15 Gh mobilizations Joint left GH joint Direction ap and inf Grade III Body Position Hooklying Reps/Duration 12 each PT-OP-T Assessment and Plan Start: 07/21/23 17:13 Freq: Status: Active Protocol: Document 08/18/23 13:45 DCW (Rec: 08/18/23 14:29 DCW [id number]) Physical Therapy Assessment Impairments Impairments Activity Tolerance,Functional Activities,Functional Mobility ,Pain,Posture,ROM,Soft Tissue Mobility,Strength,Tone Goals Two Impairment Severely limited left shoulder ROM in flexion (92?) and abduction (74?) Chcf Goal (LTG) Pt to improve left shoulder AROM flexion and abduction to > 120? in order to improve ability to perform overhead activities and don/doff jacket without pain LTG Duration 10/19/23 One Impairment Pt does not have an appropriate home exercise program Short Term Goal (STG) Pt to be independent and compliant with an appropriate HEP STG Duration 08/21/23 Assessment Summary Assessment Pt demonstrating some improvement with both passive and active ROM, has been doing well with compliance with HEP . Continue to focus on ROM and shoulder strengthening Physical Therapy Plan Frequency and Duration Frequency of Treatment 2x/Week Plan of Care Start Date 07/21/23 Plan of Care End Date 10/19/23 Therapeutic Interventions Therapeutic Interventions Home Exercise Program,Joint Mobilizations,Manual Therapy, Neuromuscular Re-education, Patient/Caregiver Education, Self-Care/Home Management,Soft Tissue Mobilization, Therapeutic Activities, Therapeutic Exercises Modalities Cold Pack/Ice Massage,Electric Stimulation,Hot Packs, Ultrasound Next Visit Focus/Plan Next Note Type Treatment Note Next Visit Plan head elevated due to COPD Shoulder AROM/PROM, strengthening, STM
--- NOTE | 2023-08-24 14:28 | PT.OTN ---
Current Diagnoses Pain in left shoulder (08/24/23) Stiffness of left shoulder, not elsewhere classified (08/24/23) Other injury of muscle(s) and tendon(s) of the rotator cuff of left shoulder, subsequent encounter (08/24/23) Physical Therapy Treatment Note PT-OP-A Visit Information Start: 07/21/23 17:13 Freq: Status: Active Protocol: Document 08/24/23 13:45 DCW (Rec: 08/24/23 14:27 DCW [id number]) Out-Patient Physical Therapy Visit Information Visit Information Visit Type Progress Note Visit Start Time 13:45 Visit Stop Time 14:30 Visit Number 9 Number of KIDNEY TRIMMER Visits 0 Evaluation Information Evaluation Date 07/21/23 Precautions Precautions *Latex allergy* PT-OP-B Current Condition Start: 07/21/23 17:13 Freq: Status: Active Protocol: Document 07/21/23 16:00 DCW (Rec: 07/21/23 17:37 DCW [id number]) Current Condition History of Current Condition Onset Date Two month history Current Complaints Left shoulder pain and immobility History of Current Condition Pt is a 72 year old female presenting with a two month history of left shoulder pain and stiffness. Pt notes insidious onset, no initial injury, but has been worsening the last two months. Pt reports a general soreness rates 1-2/10 at rest, but worse with performing certain activities. Does admit it feels better after getting up and moving it more. Painful to carry anything in her left hand, pain when trying to don/ doff clothes, or attempting to lift her left arm overhead. PT-OP-C Subjective Start: 07/21/23 17:13 Freq: Status: Active Protocol: Document 08/24/23 13:45 DCW (Rec: 08/24/23 14:27 DCW [id number]) OP-PT Subjective Patient Comments Patient Comments Pt reports she's having more SOB today, we might need to take it easy. Does note that her shoulder is doing better every day. PT-OP-F Manual Assessment Start: 07/21/23 17:13 Freq: Status: Active Protocol: Document 07/21/23 16:00 DCW (Rec: 07/21/23 17:37 DCW [id number]) Manual Assessments Soft Tissue Assessment Soft Tissue Mobility Assessment Tenderness to palpation 3/4: Wincing and withdraw along left supraspinatus, infraspinatus, subscapularis, biceps, upper trap Joint Mobility Assessment Joint Mobility Assessment grinding/popping/rough surface movement with passive left GH mobility PT-OP-K Range of Motion Start: 07/21/23 17:13 Freq: Status: Active Protocol: Document 07/21/23 16:00 DCW (Rec: 07/21/23 17:37 DCW [id number]) Shoulder Goniometric Range of Motion Shoulder Left Passive Shoulder ROM WFL No Testing Position Supine Flexion 125 Abduction 42 Right Active Shoulder ROM WFL No Testing Position Sitting Flexion 112 Abduction 120 External Rotation at 0 degrees Abduction 70 Internal Rotation Behind Back (text) T11 Left Active Shoulder ROM WFL No Testing Position Sitting Flexion 92 Abduction 74 External Rotation at 0 degrees Abduction 38 Internal Rotation Behind Back (text) T11 PT-OP-L Special Tests Start: 07/21/23 17:13 Freq: Status: Active Protocol: Document 07/21/23 16:00 DCW (Rec: 07/21/23 17:37 DCW [id number]) Special Tests Shoulder Special Tests Speed's Biceps Test Results Positive Left Passive ER Rotator Cuff Test Results Positive Left Lift-Off Rotator Cuff Test Results Positive Left Chance Ventura Impingement Test Results Positive Left Grind Labrum Test Results Positive Left Empty Can Test Results Positive Left Belly Press Test Results Positive Left AC Joint Compression Test Results Negative PT-OP-M Strength Start: 07/21/23 17:13 Freq: Status: Active Protocol: Document 07/21/23 16:00 DCW (Rec: 07/21/23 17:37 DCW [id number]) Shoulder Strength Shoulder Manual Muscle Testing Left Flexion 2+ Poor+ Abduction (C5) 2+ Poor+ External Rotation 2+ Poor+ Internal Rotation 2+ Poor+ PT-OP-Q Treatments Start: 07/21/23 17:13 Freq: Status: Active Protocol: Document 08/24/23 13:45 DCW (Rec: 08/24/23 14:27 DCW [id number]) Cardio Equipment Upper Body Ergometer (UBE) Duration (Minutes) 5 RPM 60 Seat Position 12 Height 3 Therapeutic Exercises Standing Exercises Abduction Standing Exercise Name Shoulder Abduction Side bilateral Resistance 2# Flexion Standing Exercise Name Shoulder Flexion Side bilateral Resistance 2# Comments Pain-free ROM Other Exercises BodyBlade Other Exercise Name Shoulder Flexion Side bilateral Resistance Yellow Resisted Ambulation Other Exercise Name Resisted UE side-stepping Resistance Latex-free [place] Comments Added to HEP Manual Therapy Treatment Soft Tissue Mobilization left periscapular muscles Mobilization Type Cross-Friction,Rolling Intensity/Depth Moderate Body Position Supine Comments monitored for pain left post cuff Mobilization Type Cross-Friction,Rolling Intensity/Depth Moderate Body Position Supine Comments monitored for pain left pec Body Location pec minor left shoulder Intensity/Depth Moderate Body Position Hooklying Comments monitored for pain Joint Mobilizations scapular mobilization Joint left UE Direction depression and adduction Grade III Reps/Duration 15 PT-OP-T Assessment and Plan Start: 07/21/23 17:13 Freq: Status: Active Protocol: Document 08/24/23 13:45 DCW (Rec: 08/24/23 14:27 DCW [id number]) Physical Therapy Assessment Impairments Impairments Activity Tolerance,Functional Activities,Functional Mobility ,Pain,Posture,ROM,Soft Tissue Mobility,Strength,Tone Goals Two Impairment Severely limited left shoulder ROM in flexion (92?) and abduction (74?) Care Home Goal (LTG) Pt to improve left shoulder AROM flexion and abduction to > 120? in order to improve ability to perform overhead activities and don/doff jacket without pain LTG Duration 10/19/23 One Impairment Pt does not have an appropriate home exercise program Short Term Goal (STG) Pt to be independent and compliant with an appropriate HEP STG Duration 08/21/23 Assessment Summary Assessment Left AROM measured today at 111? flexion, 92? abduction, and 50? ER. Making reasonable progress overall, notes discomfort has been easier to ignore. Physical Therapy Plan Frequency and Duration Frequency of Treatment 2x/Week Plan of Care Start Date 07/21/23 Plan of Care End Date 10/19/23 Therapeutic Interventions Therapeutic Interventions Home Exercise Program,Joint Mobilizations,Manual Therapy, Neuromuscular Re-education, Patient/Caregiver Education, Self-Care/Home Management,Soft Tissue Mobilization, Therapeutic Activities, Therapeutic Exercises Modalities Cold Pack/Ice Massage,Electric Stimulation,Hot Packs, Ultrasound Next Visit Focus/Plan Next Note Type Treatment Note Next Visit Plan head elevated due to COPD Shoulder AROM/PROM, strengthening, STM
--- NOTE | 2023-08-26 16:34 | PT.OTN ---
Current Diagnoses Pain in left shoulder (08/26/23) Stiffness of left shoulder, not elsewhere classified (08/26/23) Other injury of muscle(s) and tendon(s) of the rotator cuff of left shoulder, subsequent encounter (08/26/23) Physical Therapy Treatment Note PT-OP-A Visit Information Start: 07/21/23 17:13 Freq: Status: Active Protocol: Document 08/26/23 12:57 AB (Rec: 08/26/23 16:33 AB [id number]) Out-Patient Physical Therapy Visit Information Visit Information Visit Type Treatment Note Visit Note ccess Code: [id number] Visit Start Time 13:48 Visit Stop Time 14:31 Visit Number 10 Number of SHOWROOM MANAGER Visits 1 Evaluation Information Evaluation Date 07/21/23 Precautions Precautions *Latex allergy* PT-OP-B Current Condition Start: 07/21/23 17:13 Freq: Status: Active Protocol: Document 07/21/23 16:00 DCW (Rec: 07/21/23 17:37 DCW [id number]) Current Condition History of Current Condition Onset Date Two month history Current Complaints Left shoulder pain and immobility History of Current Condition Pt is a 72 year old female presenting with a two month history of left shoulder pain and stiffness. Pt notes insidious onset, no initial injury, but has been worsening the last two months. Pt reports a general soreness rates 1-2/10 at rest, but worse with performing certain activities. Does admit it feels better after getting up and moving it more. Painful to carry anything in her left hand, pain when trying to don/ doff clothes, or attempting to lift her left arm overhead. PT-OP-C Subjective Start: 07/21/23 17:13 Freq: Status: Active Protocol: Document 08/26/23 12:57 AB (Rec: 08/26/23 16:33 AB [id number]) OP-PT Subjective Patient Comments Patient Comments Patient reports shoulder is getting better. AROM left shoulder flexion 106 deg. PT-OP-F Manual Assessment Start: 07/21/23 17:13 Freq: Status: Active Protocol: Document 07/21/23 16:00 DCW (Rec: 07/21/23 17:37 DCW [id number]) Manual Assessments Soft Tissue Assessment Soft Tissue Mobility Assessment Tenderness to palpation 3/4: Wincing and withdraw along left supraspinatus, infraspinatus, subscapularis, biceps, upper trap Joint Mobility Assessment Joint Mobility Assessment grinding/popping/rough surface movement with passive left GH mobility PT-OP-K Range of Motion Start: 07/21/23 17:13 Freq: Status: Active Protocol: Document 07/21/23 16:00 DCW (Rec: 07/21/23 17:37 DCW [id number]) Shoulder Goniometric Range of Motion Shoulder Left Passive Shoulder ROM WFL No Testing Position Supine Flexion 125 Abduction 42 Right Active Shoulder ROM WFL No Testing Position Sitting Flexion 112 Abduction 120 External Rotation at 0 degrees Abduction 70 Internal Rotation Behind Back (text) T11 Left Active Shoulder ROM WFL No Testing Position Sitting Flexion 92 Abduction 74 External Rotation at 0 degrees Abduction 38 Internal Rotation Behind Back (text) T11 PT-OP-L Special Tests Start: 07/21/23 17:13 Freq: Status: Active Protocol: Document 07/21/23 16:00 DCW (Rec: 07/21/23 17:37 DCW [id number]) Special Tests Shoulder Special Tests Speed's Biceps Test Results Positive Left Passive ER Rotator Cuff Test Results Positive Left Lift-Off Rotator Cuff Test Results Positive Left Chance Ventura Impingement Test Results Positive Left Grind Labrum Test Results Positive Left Empty Can Test Results Positive Left Belly Press Test Results Positive Left AC Joint Compression Test Results Negative PT-OP-M Strength Start: 07/21/23 17:13 Freq: Status: Active Protocol: Document 07/21/23 16:00 DCW (Rec: 07/21/23 17:37 DCW [id number]) Shoulder Strength Shoulder Manual Muscle Testing Left Flexion 2+ Poor+ Abduction (C5) 2+ Poor+ External Rotation 2+ Poor+ Internal Rotation 2+ Poor+ PT-OP-Q Treatments Start: 07/21/23 17:13 Freq: Status: Active Protocol: Document 08/26/23 12:57 AB (Rec: 08/26/23 16:33 AB [id number]) Therapeutic Exercises Supine Exercises shoulder ER with dowel Supine Exercise Name single arm without dowel this session Side bilateral Reps/Minutes 10 seconds X 10 Sidelying Exercises sidelying shoulder ER AROM Side left Reps/Minutes X10 Comments Verbal and tactile cues Sitting Exercises body over UE ER with UE on table PROM Side left Reps/Minutes 15 seconds X 5 Comments verbal cues Seated shoulder AROM ER Reps/Minutes X10 Standing Exercises high row Side bilateral Resistance level 4 latex free band Reps/Minutes 2X10 Row Side bilateral Resistance level 4 latex free band Reps/Minutes 1X10 Manual Therapy Treatment Soft Tissue Mobilization left periscapular muscles Mobilization Type Cross-Friction,Rolling Intensity/Depth Moderate Body Position Supine Comments monitored for pain left post cuff Mobilization Type Cross-Friction,Rolling Intensity/Depth Moderate Body Position Supine Comments monitored for pain left pec Body Location pec minor left shoulder Intensity/Depth Moderate Body Position Hooklying Comments monitored for pain Joint Mobilizations scapular mobilization Joint left UE Direction depression and adduction Grade III Reps/Duration 15 Gh mobilizations Joint left GH joint Direction ap and inf Grade IV Body Position Hooklying Reps/Duration 12 each Manual Techniques PROM left shoulder ER Type at 30 deg abduction Reps/Duration X8 PT-OP-T Assessment and Plan Start: 07/21/23 17:13 Freq: Status: Active Protocol: Document 08/26/23 12:57 AB (Rec: 08/26/23 16:33 AB [id number]) Physical Therapy Assessment Goals Two Impairment Severely limited left shoulder ROM in flexion (92?) and abduction (74?) Hazardous Waste Technician Goal (LTG) Pt to improve left shoulder AROM flexion and abduction to > 120? in order to improve ability to perform overhead activities and don/doff jacket without pain LTG Duration 10/19/23 One Impairment Pt does not have an appropriate home exercise program Short Term Goal (STG) Pt to be independent and compliant with an appropriate HEP STG Duration 08/21/23 Assessment Summary Assessment 110 deg flexion AROM left shoulder end of session. Patient reports she is doing good end of session. Physical Therapy Plan Frequency and Duration Frequency of Treatment 2x/Week Plan of Care Start Date 07/21/23 Plan of Care End Date 10/19/23 Next Visit Focus/Plan Next Note Type Treatment Note Next Visit Plan head elevated due to COPD Shoulder AROM/PROM, strengthening, STM
--- NOTE | 2023-08-31 14:31 | PT.OTN ---
Current Diagnoses Pain in left shoulder (08/31/23) Stiffness of left shoulder, not elsewhere classified (08/31/23) Other injury of muscle(s) and tendon(s) of the rotator cuff of left shoulder, subsequent encounter (08/31/23) Physical Therapy Treatment Note PT-OP-A Visit Information Start: 07/21/23 17:13 Freq: Status: Active Protocol: Document 08/31/23 13:45 DCW (Rec: 08/31/23 14:31 DCW [id number]) Out-Patient Physical Therapy Visit Information Visit Information Visit Type Treatment Note Visit Start Time 13:45 Visit Stop Time 14:30 Visit Number 11 Number of UNDERTAKER HELPER Visits 0 Evaluation Information Evaluation Date 07/21/23 Precautions Precautions *Latex allergy* PT-OP-B Current Condition Start: 07/21/23 17:13 Freq: Status: Active Protocol: Document 07/21/23 16:00 DCW (Rec: 07/21/23 17:37 DCW [id number]) Current Condition History of Current Condition Onset Date Two month history Current Complaints Left shoulder pain and immobility History of Current Condition Pt is a 72 year old female presenting with a two month history of left shoulder pain and stiffness. Pt notes insidious onset, no initial injury, but has been worsening the last two months. Pt reports a general soreness rates 1-2/10 at rest, but worse with performing certain activities. Does admit it feels better after getting up and moving it more. Painful to carry anything in her left hand, pain when trying to don/ doff clothes, or attempting to lift her left arm overhead. PT-OP-C Subjective Start: 07/21/23 17:13 Freq: Status: Active Protocol: Document 08/31/23 13:45 DCW (Rec: 08/31/23 14:31 DCW [id number]) OP-PT Subjective Patient Comments Patient Comments Pt notes she is having a good day today PT-OP-F Manual Assessment Start: 07/21/23 17:13 Freq: Status: Active Protocol: Document 07/21/23 16:00 DCW (Rec: 07/21/23 17:37 DCW [id number]) Manual Assessments Soft Tissue Assessment Soft Tissue Mobility Assessment Tenderness to palpation 3/4: Wincing and withdraw along left supraspinatus, infraspinatus, subscapularis, biceps, upper trap Joint Mobility Assessment Joint Mobility Assessment grinding/popping/rough surface movement with passive left GH mobility PT-OP-K Range of Motion Start: 07/21/23 17:13 Freq: Status: Active Protocol: Document 07/21/23 16:00 DCW (Rec: 07/21/23 17:37 DCW [id number]) Shoulder Goniometric Range of Motion Shoulder Left Passive Shoulder ROM WFL No Testing Position Supine Flexion 125 Abduction 42 Right Active Shoulder ROM WFL No Testing Position Sitting Flexion 112 Abduction 120 External Rotation at 0 degrees Abduction 70 Internal Rotation Behind Back (text) T11 Left Active Shoulder ROM WFL No Testing Position Sitting Flexion 92 Abduction 74 External Rotation at 0 degrees Abduction 38 Internal Rotation Behind Back (text) T11 PT-OP-L Special Tests Start: 07/21/23 17:13 Freq: Status: Active Protocol: Document 07/21/23 16:00 DCW (Rec: 07/21/23 17:37 DCW [id number]) Special Tests Shoulder Special Tests Speed's Biceps Test Results Positive Left Passive ER Rotator Cuff Test Results Positive Left Lift-Off Rotator Cuff Test Results Positive Left Chance [place] Impingement Test Results Positive Left Grind Labrum Test Results Positive Left Empty Can Test Results Positive Left Belly Press Test Results Positive Left AC Joint Compression Test Results Negative PT-OP-M Strength Start: 07/21/23 17:13 Freq: Status: Active Protocol: Document 07/21/23 16:00 DCW (Rec: 07/21/23 17:37 DCW [id number]) Shoulder Strength Shoulder Manual Muscle Testing Left Flexion 2+ Poor+ Abduction (C5) 2+ Poor+ External Rotation 2+ Poor+ Internal Rotation 2+ Poor+ PT-OP-Q Treatments Start: 07/21/23 17:13 Freq: Status: Active Protocol: Document 08/31/23 13:45 DCW (Rec: 08/31/23 14:31 DCW [id number]) Cardio Equipment Upper Body Ergometer (UBE) Duration (Minutes) 5 RPM 60 Seat Position 12 Height 3 Therapeutic Exercises Standing Exercises PNF Standing Exercise Name UE PNF Flexion Side bilateral Resistance 2# Comments PErformed sitting d/t SOB Other Exercises BodyBlade Other Exercise Name Shoulder Flexion Side bilateral Resistance [place] Resisted Ambulation Other Exercise Name Resisted UE side-stepping Resistance Latex-free [place] Comments Added to HEP Manual Therapy Treatment Soft Tissue Mobilization left periscapular muscles Mobilization Type Cross-Friction,Rolling Intensity/Depth Moderate Body Position Supine Comments monitored for pain left post cuff Mobilization Type Cross-Friction,Rolling Intensity/Depth Moderate Body Position Supine Comments monitored for pain left pec Body Location pec minor left shoulder Intensity/Depth Moderate Body Position Hooklying Comments monitored for pain PT-OP-T Assessment and Plan Start: 07/21/23 17:13 Freq: Status: Active Protocol: Document 08/31/23 13:45 DCW (Rec: 08/31/23 14:31 DCW [id number]) Physical Therapy Assessment Impairments Impairments Activity Tolerance,Functional Activities,Functional Mobility ,Pain,Posture,ROM,Soft Tissue Mobility,Strength,Tone Goals Two Impairment Severely limited left shoulder ROM in flexion (92?) and abduction (74?) Surgical Brace Maker Goal (LTG) Pt to improve left shoulder AROM flexion and abduction to > 120? in order to improve ability to perform overhead activities and don/doff jacket without pain LTG Duration 10/19/23 One Impairment Pt does not have an appropriate home exercise program Short Term Goal (STG) Pt to be independent and compliant with an appropriate HEP STG Duration 08/21/23 Assessment Summary Assessment Significant improvements in passive abduction today, measures at 97?, significant improvement from 42? at time of eval. Continue to work on shoulder ROM and strength. Pt does continue to be slightly limited secondary to COPD and ongoing SOB. Physical Therapy Plan Frequency and Duration Frequency of Treatment 2x/Week Plan of Care Start Date 07/21/23 Plan of Care End Date 10/19/23 Therapeutic Interventions Therapeutic Interventions Home Exercise Program,Joint Mobilizations,Manual Therapy, Neuromuscular Re-education, Patient/Caregiver Education, Self-Care/Home Management,Soft Tissue Mobilization, Therapeutic Activities, Therapeutic Exercises Modalities Cold Pack/Ice Massage,Electric Stimulation,Hot Packs, Ultrasound Next Visit Focus/Plan Next Note Type Treatment Note Next Visit Plan head elevated due to COPD Shoulder AROM/PROM, strengthening, STM
--- NOTE | 2023-09-02 14:31 | PT.OTN ---
Current Diagnoses Pain in left shoulder (09/02/23) Stiffness of left shoulder, not elsewhere classified (09/02/23) Other injury of muscle(s) and tendon(s) of the rotator cuff of left shoulder, subsequent encounter (09/02/23) Physical Therapy Treatment Note PT-OP-A Visit Information Start: 07/21/23 17:13 Freq: Status: Active Protocol: Document 09/02/23 13:45 DCW (Rec: 09/02/23 14:31 DCW [id number]) Out-Patient Physical Therapy Visit Information Visit Information Visit Type Treatment Note Visit Start Time 13:45 Visit Stop Time 14:30 Visit Number 11 Number of AUTOMOTIVE ACCESSORY INSTALLER Visits 0 Evaluation Information Evaluation Date 07/21/23 Precautions Precautions *Latex allergy* PT-OP-B Current Condition Start: 07/21/23 17:13 Freq: Status: Active Protocol: Document 07/21/23 16:00 DCW (Rec: 07/21/23 17:37 DCW [id number]) Current Condition History of Current Condition Onset Date Two month history Current Complaints Left shoulder pain and immobility History of Current Condition Pt is a 72 year old female presenting with a two month history of left shoulder pain and stiffness. Pt notes insidious onset, no initial injury, but has been worsening the last two months. Pt reports a general soreness rates 1-2/10 at rest, but worse with performing certain activities. Does admit it feels better after getting up and moving it more. Painful to carry anything in her left hand, pain when trying to don/ doff clothes, or attempting to lift her left arm overhead. PT-OP-C Subjective Start: 07/21/23 17:13 Freq: Status: Active Protocol: Document 09/02/23 13:45 DCW (Rec: 09/02/23 14:31 DCW [id number]) OP-PT Subjective Patient Comments Patient Comments I'm still struggling with breathing, I'm glad I have an appointment tomorrow. PT-OP-F Manual Assessment Start: 07/21/23 17:13 Freq: Status: Active Protocol: Document 07/21/23 16:00 DCW (Rec: 07/21/23 17:37 DCW [id number]) Manual Assessments Soft Tissue Assessment Soft Tissue Mobility Assessment Tenderness to palpation 3/4: Wincing and withdraw along left supraspinatus, infraspinatus, subscapularis, biceps, upper trap Joint Mobility Assessment Joint Mobility Assessment grinding/popping/rough surface movement with passive left GH mobility PT-OP-K Range of Motion Start: 07/21/23 17:13 Freq: Status: Active Protocol: Document 07/21/23 16:00 DCW (Rec: 07/21/23 17:37 DCW [id number]) Shoulder Goniometric Range of Motion Shoulder Left Passive Shoulder ROM WFL No Testing Position Supine Flexion 125 Abduction 42 Right Active Shoulder ROM WFL No Testing Position Sitting Flexion 112 Abduction 120 External Rotation at 0 degrees Abduction 70 Internal Rotation Behind Back (text) T11 Left Active Shoulder ROM WFL No Testing Position Sitting Flexion 92 Abduction 74 External Rotation at 0 degrees Abduction 38 Internal Rotation Behind Back (text) T11 PT-OP-L Special Tests Start: 07/21/23 17:13 Freq: Status: Active Protocol: Document 07/21/23 16:00 DCW (Rec: 07/21/23 17:37 DCW [id number]) Special Tests Shoulder Special Tests Speed's Biceps Test Results Positive Left Passive ER Rotator Cuff Test Results Positive Left Lift-Off Rotator Cuff Test Results Positive Left [place] Impingement Test Results Positive Left Grind Labrum Test Results Positive Left Empty Can Test Results Positive Left Belly Press Test Results Positive Left AC Joint Compression Test Results Negative PT-OP-M Strength Start: 07/21/23 17:13 Freq: Status: Active Protocol: Document 07/21/23 16:00 DCW (Rec: 07/21/23 17:37 DCW [id number]) Shoulder Strength Shoulder Manual Muscle Testing Left Flexion 2+ Poor+ Abduction (C5) 2+ Poor+ External Rotation 2+ Poor+ Internal Rotation 2+ Poor+ PT-OP-Q Treatments Start: 07/21/23 17:13 Freq: Status: Active Protocol: Document 09/02/23 13:45 DCW (Rec: 09/02/23 14:31 DCW [id number]) Cardio Equipment Upper Body Ergometer (UBE) Duration (Minutes) 5 RPM 60 Seat Position 12 Height 3 Therapeutic Exercises Sitting Exercises Abduction Sitting Exercise Name Shoulder Abduction Side left Overhead press Sitting Exercise Name Overhead press /c PVC Side bilateral Standing Exercises PNF Standing Exercise Name UE PNF Flexion Side bilateral Resistance 2# Comments Performed sitting d/t SOB Extension Standing Exercise Name Shoulder Extension Side bilateral Resistance [place] Row Standing Exercise Name Row Side bilateral Resistance [place] Reps/Minutes 1X10 Manual Therapy Treatment Soft Tissue Mobilization left periscapular muscles Mobilization Type Cross-Friction,Rolling Intensity/Depth Moderate Body Position Supine Comments monitored for pain left post cuff Mobilization Type Cross-Friction,Rolling Intensity/Depth Moderate Body Position Supine Comments monitored for pain left pec Body Location pec minor left shoulder Intensity/Depth Moderate Body Position Hooklying Comments monitored for pain PT-OP-T Assessment and Plan Start: 07/21/23 17:13 Freq: Status: Active Protocol: Document 09/02/23 13:45 DCW (Rec: 09/02/23 14:31 DCW [id number]) Physical Therapy Assessment Impairments Impairments Activity Tolerance,Functional Activities,Functional Mobility ,Pain,Posture,ROM,Soft Tissue Mobility,Strength,Tone Goals Two Impairment Severely limited left shoulder ROM in flexion (92?) and abduction (74?) Adjunct Psychology Faculty Member Goal (LTG) Pt to improve left shoulder AROM flexion and abduction to > 120? in order to improve ability to perform overhead activities and don/doff jacket without pain LTG Duration 10/19/23 One Impairment Pt does not have an appropriate home exercise program Short Term Goal (STG) Pt to be independent and compliant with an appropriate HEP STG Duration 08/21/23 Assessment Summary Assessment Pt continues to show [id number] with pain level and shoulder mobility. Continue to focus on pain-free ROM and gentle strengthening. Physical Therapy Plan Frequency and Duration Frequency of Treatment 2x/Week Plan of Care Start Date 07/21/23 Plan of Care End Date 10/19/23 Therapeutic Interventions Therapeutic Interventions Home Exercise Program,Joint Mobilizations,Manual Therapy, Neuromuscular Re-education, Patient/Caregiver Education, Self-Care/Home Management,Soft Tissue Mobilization, Therapeutic Activities, Therapeutic Exercises Modalities Cold Pack/Ice Massage,Electric Stimulation,Hot Packs, Ultrasound Next Visit Focus/Plan Next Note Type Treatment Note Next Visit Plan head elevated due to COPD Shoulder AROM/PROM, strengthening, STM
--- NOTE | 2023-09-07 15:46 | PT.OTN ---
Current Diagnoses Pain in left shoulder (09/07/23) Stiffness of left shoulder, not elsewhere classified (09/07/23) Other injury of muscle(s) and tendon(s) of the rotator cuff of left shoulder, subsequent encounter (09/07/23) Physical Therapy Treatment Note PT-OP-A Visit Information Start: 07/21/23 17:13 Freq: Status: Active Protocol: Document 09/07/23 13:51 SW (Rec: 09/07/23 14:37 [id number]) Out-Patient Physical Therapy Visit Information Visit Information Visit Type Treatment Note Visit Start Time 13:49 Visit Stop Time 14:29 Visit Number 13 Number of LABORER VEGETABLE FARM Visits 0 Precautions Precautions *Latex allergy* PT-OP-B Current Condition Start: 07/21/23 17:13 Freq: Status: Active Protocol: Document 07/21/23 16:00 DCW (Rec: 07/21/23 17:37 DCW [id number]) Current Condition History of Current Condition Onset Date Two month history Current Complaints Left shoulder pain and immobility History of Current Condition Pt is a 72 year old female presenting with a two month history of left shoulder pain and stiffness. Pt notes insidious onset, no initial injury, but has been worsening the last two months. Pt reports a general soreness rates 1-2/10 at rest, but worse with performing certain activities. Does admit it feels better after getting up and moving it more. Painful to carry anything in her left hand, pain when trying to don/ doff clothes, or attempting to lift her left arm overhead. PT-OP-C Subjective Start: 07/21/23 17:13 Freq: Status: Active Protocol: Document 09/07/23 13:51 SW (Rec: 09/07/23 14:37 [id number]) OP-PT Subjective Patient Comments Patient Comments Pt reports this last week has noticed the greatest improvement, able to do more with decrease in pain, no more than a 3-4/10. PT-OP-F Manual Assessment Start: 07/21/23 17:13 Freq: Status: Active Protocol: Document 07/21/23 16:00 DCW (Rec: 07/21/23 17:37 DCW [id number]) Manual Assessments Soft Tissue Assessment Soft Tissue Mobility Assessment Tenderness to palpation 3/4: Wincing and withdraw along left supraspinatus, infraspinatus, subscapularis, biceps, upper trap Joint Mobility Assessment Joint Mobility Assessment grinding/popping/rough surface movement with passive left GH mobility PT-OP-K Range of Motion Start: 07/21/23 17:13 Freq: Status: Active Protocol: Document 07/21/23 16:00 DCW (Rec: 07/21/23 17:37 DCW [id number]) Shoulder Goniometric Range of Motion Shoulder Left Passive Shoulder ROM WFL No Testing Position Supine Flexion 125 Abduction 42 Right Active Shoulder ROM WFL No Testing Position Sitting Flexion 112 Abduction 120 External Rotation at 0 degrees Abduction 70 Internal Rotation Behind Back (text) T11 Left Active Shoulder ROM WFL No Testing Position Sitting Flexion 92 Abduction 74 External Rotation at 0 degrees Abduction 38 Internal Rotation Behind Back (text) T11 PT-OP-L Special Tests Start: 07/21/23 17:13 Freq: Status: Active Protocol: Document 07/21/23 16:00 DCW (Rec: 07/21/23 17:37 DCW [id number]) Special Tests Shoulder Special Tests Speed's Biceps Test Results Positive Left Passive ER Rotator Cuff Test Results Positive Left Lift-Off Rotator Cuff Test Results Positive Left Chance [place] Impingement Test Results Positive Left Grind Labrum Test Results Positive Left Empty Can Test Results Positive Left Belly Press Test Results Positive Left AC Joint Compression Test Results Negative PT-OP-M Strength Start: 07/21/23 17:13 Freq: Status: Active Protocol: Document 07/21/23 16:00 DCW (Rec: 07/21/23 17:37 DCW [id number]) Shoulder Strength Shoulder Manual Muscle Testing Left Flexion 2+ Poor+ Abduction (C5) 2+ Poor+ External Rotation 2+ Poor+ Internal Rotation 2+ Poor+ PT-OP-Q Treatments Start: 07/21/23 17:13 Freq: Status: Active Protocol: Document 09/07/23 13:51 SW (Rec: 09/07/23 14:37 SW [id number]) Cardio Equipment Upper Body Ergometer (UBE) Duration (Minutes) 5 RPM 60 Seat Position 12 Height 3 Therapeutic Exercises Sitting Exercises Abduction Sitting Exercise Name Shoulder Abduction Side left Overhead press Sitting Exercise Name Overhead press /c PVC Side bilateral Pulleys Sitting Exercise Name PROM Pulleys - Flexion, Abduction Standing Exercises PNF Standing Exercise Name UE PNF Flexion Side bilateral Resistance 2# Comments Performed sitting d/t SOB Extension Standing Exercise Name Shoulder Extension Side bilateral Resistance [place] Row Standing Exercise Name Row Side bilateral Resistance [place] Reps/Minutes 2x15 Other Exercises Resisted Ambulation Other Exercise Name Resisted UE side-stepping Resistance Latex-free [place] Comments Added to HEP Manual Therapy Treatment Soft Tissue Mobilization left periscapular muscles Mobilization Type Cross-Friction,Rolling Intensity/Depth Moderate Body Position Supine Comments monitored for pain left post cuff Mobilization Type Cross-Friction,Rolling Intensity/Depth Moderate Body Position Supine Comments monitored for pain left pec Body Location pec minor left shoulder Intensity/Depth Moderate Body Position Hooklying Comments monitored for pain PT-OP-T Assessment and Plan Start: 07/21/23 17:13 Freq: Status: Active Protocol: Document 09/07/23 13:51 SW (Rec: 09/07/23 14:37 [id number]) Physical Therapy Assessment Goals Two Impairment Severely limited left shoulder ROM in flexion (92?) and abduction (74?) Senior Living Goal (LTG) Pt to improve left shoulder AROM flexion and abduction to > 120? in order to improve ability to perform overhead activities and don/doff jacket without pain LTG Duration 10/19/23 One Impairment Pt does not have an appropriate home exercise program Short Term Goal (STG) Pt to be independent and compliant with an appropriate HEP STG Duration 08/21/23 Assessment Summary Assessment Pt reports feeling best so far this week, improvement in pain with activities. Overall good tolerance to session. Minimal pain reproduction with weight exercise, decreased weight improved tolerance and ROM. Minimal cues for guarding / compensation, good carryover with pt awareness. Physical Therapy Plan Frequency and Duration Frequency of Treatment 2x/Week Plan of Care Start Date 07/21/23 Plan of Care End Date 10/19/23 Therapeutic Interventions Therapeutic Interventions Home Exercise Program,Joint Mobilizations,Manual Therapy, Neuromuscular Re-education, Patient/Caregiver Education, Self-Care/Home Management,Soft Tissue Mobilization, Therapeutic Activities, Therapeutic Exercises Modalities Cold Pack/Ice Massage,Electric Stimulation,Hot Packs, Ultrasound Next Visit Focus/Plan Next Note Type Treatment Note Next Visit Plan head elevated due to COPD Shoulder AROM/PROM, strengthening, STM
--- NOTE | 2023-09-09 15:26 | PT.OTN ---
Current Diagnoses Pain in left shoulder (09/09/23) Stiffness of left shoulder, not elsewhere classified (09/09/23) Other injury of muscle(s) and tendon(s) of the rotator cuff of left shoulder, subsequent encounter (09/09/23) Physical Therapy Treatment Note PT-OP-A Visit Information Start: 07/21/23 17:13 Freq: Status: Active Protocol: Document 09/09/23 14:29 (Rec: 09/09/23 15:26 [id number]) Out-Patient Physical Therapy Visit Information Visit Information Visit Type Treatment Note Visit Start Time 14:30 Visit Stop Time 15:15 Visit Number 14 Number of BUILDING MAINTENANCE MECHANIC Visits 2 Precautions Precautions *Latex allergy* PT-OP-B Current Condition Start: 07/21/23 17:13 Freq: Status: Active Protocol: Document 07/21/23 16:00 DCW (Rec: 07/21/23 17:37 DCW [id number]) Current Condition History of Current Condition Onset Date Two month history Current Complaints Left shoulder pain and immobility History of Current Condition Pt is a 72 year old female presenting with a two month history of left shoulder pain and stiffness. Pt notes insidious onset, no initial injury, but has been worsening the last two months. Pt reports a general soreness rates 1-2/10 at rest, but worse with performing certain activities. Does admit it feels better after getting up and moving it more. Painful to carry anything in her left hand, pain when trying to don/ doff clothes, or attempting to lift her left arm overhead. PT-OP-C Subjective Start: 07/21/23 17:13 Freq: Status: Active Protocol: Document 09/09/23 14:29 (Rec: 09/09/23 15:26 [id number]) OP-PT Subjective Patient Comments Patient Comments Pt reports shoulder has been the best it has ever felt. Woke up this morning with no pain. PT-OP-F Manual Assessment Start: 07/21/23 17:13 Freq: Status: Active Protocol: Document 07/21/23 16:00 DCW (Rec: 07/21/23 17:37 DCW [id number]) Manual Assessments Soft Tissue Assessment Soft Tissue Mobility Assessment Tenderness to palpation 3/4: Wincing and withdraw along left supraspinatus, infraspinatus, subscapularis, biceps, upper trap Joint Mobility Assessment Joint Mobility Assessment grinding/popping/rough surface movement with passive left GH mobility PT-OP-K Range of Motion Start: 07/21/23 17:13 Freq: Status: Active Protocol: Document 07/21/23 16:00 DCW (Rec: 07/21/23 17:37 DCW [id number]) Shoulder Goniometric Range of Motion Shoulder Left Passive Shoulder ROM WFL No Testing Position Supine Flexion 125 Abduction 42 Right Active Shoulder ROM WFL No Testing Position Sitting Flexion 112 Abduction 120 External Rotation at 0 degrees Abduction 70 Internal Rotation Behind Back (text) T11 Left Active Shoulder ROM WFL No Testing Position Sitting Flexion 92 Abduction 74 External Rotation at 0 degrees Abduction 38 Internal Rotation Behind Back (text) T11 PT-OP-L Special Tests Start: 07/21/23 17:13 Freq: Status: Active Protocol: Document 07/21/23 16:00 DCW (Rec: 07/21/23 17:37 DCW [id number]) Special Tests Shoulder Special Tests Speed's Biceps Test Results Positive Left Passive ER Rotator Cuff Test Results Positive Left Lift-Off Rotator Cuff Test Results Positive Left Chance [place]ura Impingement Test Results Positive Left Grind Labrum Test Results Positive Left Empty Can Test Results Positive Left Belly Press Test Results Positive Left AC Joint Compression Test Results Negative PT-OP-M Strength Start: 07/21/23 17:13 Freq: Status: Active Protocol: Document 07/21/23 16:00 DCW (Rec: 07/21/23 17:37 DCW [id number]) Shoulder Strength Shoulder Manual Muscle Testing Left Flexion 2+ Poor+ Abduction (C5) 2+ Poor+ External Rotation 2+ Poor+ Internal Rotation 2+ Poor+ PT-OP-Q Treatments Start: 07/21/23 17:13 Freq: Status: Active Protocol: Document 09/09/23 14:29 SW (Rec: 09/09/23 15:26 SW [id number]) Cardio Equipment Upper Body Ergometer (UBE) Duration (Minutes) 5 RPM 60 Seat Position 12 Height 3 Therapeutic Exercises Sitting Exercises Abduction Sitting Exercise Name Shoulder Abduction Side left Equipment Used 1#>2# Overhead press Sitting Exercise Name Overhead press /c PVC Side bilateral Pulleys Sitting Exercise Name PROM Pulleys - Flexion, Abduction Comments cues for relaxed shoulders Standing Exercises PNF Standing Exercise Name UE PNF Flexion Side bilateral Resistance 2# Comments Performed sitting d/t SOB ER Standing Exercise Name Shoulder ER/IR Side bilateral Resistance [place] Abduction Standing Exercise Name Shoulder Abduction Side bilateral Resistance 2# Adduction Standing Exercise Name Shoulder Adduction Side left Resistance [place] Extension Standing Exercise Name Shoulder Extension Side bilateral Resistance [place] wall slide flexion Standing Exercise Name Wall Slide - Flexion, Abduction Side left Reps/Minutes X10 Comments Verbal cues to step to the wall, lift off step back and lower PT-OP-T Assessment and Plan Start: 07/21/23 17:13 Freq: Status: Active Protocol: Document 09/09/23 14:29 (Rec: 09/09/23 15:26 [id number]) Physical Therapy Assessment Goals Two Impairment Severely limited left shoulder ROM in flexion (92?) and abduction (74?) Senior Capital Markets Specialist Goal (LTG) Pt to improve left shoulder AROM flexion and abduction to > 120? in order to improve ability to perform overhead activities and don/doff jacket without pain LTG Duration 10/19/23 One Impairment Pt does not have an appropriate home exercise program Short Term Goal (STG) Pt to be independent and compliant with an appropriate HEP STG Duration 08/21/23 Assessment Summary Assessment Pt reported improvement in symptoms, woke up for the first time this morning with no pain. progressed pt with resistance this session, tolerated well with reports of mm working, denies pain. Pt still has limitations with ROM , though showed improvement with range with decreased compensation, improved self correction compared to last session. Plan to assess pt tolerance to new resistance with shoulder IR/ER this session, and progress as able. Physical Therapy Plan Frequency and Duration Frequency of Treatment 2x/Week Plan of Care Start Date 07/21/23 Plan of Care End Date 10/19/23 Therapeutic Interventions Therapeutic Interventions Home Exercise Program,Joint Mobilizations,Manual Therapy, Neuromuscular Re-education, Patient/Caregiver Education, Self-Care/Home Management,Soft Tissue Mobilization, Therapeutic Activities, Therapeutic Exercises Modalities Cold Pack/Ice Massage,Electric Stimulation,Hot Packs, Ultrasound Next Visit Focus/Plan Next Note Type Treatment Note Next Visit Plan head elevated due to COPD Shoulder AROM/PROM, strengthening, STM
--- NOTE | 2023-09-22 16:56 | PT.OTN ---
Current Diagnoses Pain in left shoulder (09/22/23) Stiffness of left shoulder, not elsewhere classified (09/22/23) Other injury of muscle(s) and tendon(s) of the rotator cuff of left shoulder, subsequent encounter (09/22/23) Physical Therapy Treatment Note PT-OP-A Visit Information Start: 07/21/23 17:13 Freq: Status: Active Protocol: Document 09/22/23 16:00 DCW (Rec: 09/22/23 16:56 DCW [id number]) Out-Patient Physical Therapy Visit Information Visit Information Visit Type Treatment Note Visit Start Time 16:00 Visit Stop Time 16:45 Visit Number 16 Number of IN TUBE CONVERSION TECHNICIAN Visits 0 Evaluation Information Evaluation Date 07/21/23 Precautions Precautions *Latex allergy* PT-OP-B Current Condition Start: 07/21/23 17:13 Freq: Status: Active Protocol: Document 07/21/23 16:00 DCW (Rec: 07/21/23 17:37 DCW [id number]) Current Condition History of Current Condition Onset Date Two month history Current Complaints Left shoulder pain and immobility History of Current Condition Pt is a 72 year old female presenting with a two month history of left shoulder pain and stiffness. Pt notes insidious onset, no initial injury, but has been worsening the last two months. Pt reports a general soreness rates 1-2/10 at rest, but worse with performing certain activities. Does admit it feels better after getting up and moving it more. Painful to carry anything in her left hand, pain when trying to don/ doff clothes, or attempting to lift her left arm overhead. PT-OP-C Subjective Start: 07/21/23 17:13 Freq: Status: Active Protocol: Document 09/22/23 16:00 DCW (Rec: 09/22/23 16:56 DCW [id number]) OP-PT Subjective Patient Comments Patient Comments It isn't as good this week as it was last week, I may have over-did it, but it's still better than when we started. PT-OP-F Manual Assessment Start: 07/21/23 17:13 Freq: Status: Active Protocol: Document 07/21/23 16:00 DCW (Rec: 07/21/23 17:37 DCW [id number]) Manual Assessments Soft Tissue Assessment Soft Tissue Mobility Assessment Tenderness to palpation 3/4: Wincing and withdraw along left supraspinatus, infraspinatus, subscapularis, biceps, upper trap Joint Mobility Assessment Joint Mobility Assessment grinding/popping/rough surface movement with passive left GH mobility PT-OP-K Range of Motion Start: 07/21/23 17:13 Freq: Status: Active Protocol: Document 07/21/23 16:00 DCW (Rec: 07/21/23 17:37 DCW [id number]) Shoulder Goniometric Range of Motion Shoulder Left Passive Shoulder ROM WFL No Testing Position Supine Flexion 125 Abduction 42 Right Active Shoulder ROM WFL No Testing Position Sitting Flexion 112 Abduction 120 External Rotation at 0 degrees Abduction 70 Internal Rotation Behind Back (text) T11 Left Active Shoulder ROM WFL No Testing Position Sitting Flexion 92 Abduction 74 External Rotation at 0 degrees Abduction 38 Internal Rotation Behind Back (text) T11 PT-OP-L Special Tests Start: 07/21/23 17:13 Freq: Status: Active Protocol: Document 07/21/23 16:00 DCW (Rec: 07/21/23 17:37 DCW [id number]) Special Tests Shoulder Special Tests Speed's Biceps Test Results Positive Left Passive ER Rotator Cuff Test Results Positive Left Lift-Off Rotator Cuff Test Results Positive Left Chance [place] Impingement Test Results Positive Left Grind Labrum Test Results Positive Left Empty Can Test Results Positive Left Belly Press Test Results Positive Left AC Joint Compression Test Results Negative PT-OP-M Strength Start: 07/21/23 17:13 Freq: Status: Active Protocol: Document 07/21/23 16:00 DCW (Rec: 07/21/23 17:37 DCW [id number]) Shoulder Strength Shoulder Manual Muscle Testing Left Flexion 2+ Poor+ Abduction (C5) 2+ Poor+ External Rotation 2+ Poor+ Internal Rotation 2+ Poor+ PT-OP-Q Treatments Start: 07/21/23 17:13 Freq: Status: Active Protocol: Document 09/22/23 16:00 DCW (Rec: 09/22/23 16:56 DCW [id number]) Cardio Equipment Upper Body Ergometer (UBE) Duration (Minutes) 5 RPM 60 Seat Position 12 Height 3.5 Therapeutic Exercises Sitting Exercises Overhead press Sitting Exercise Name Overhead press /c PVC Side bilateral Standing Exercises PNF Standing Exercise Name UE PNF Flexion D1/D2 Side bilateral Resistance 2# DB Comments Performed sitting Manual Therapy Treatment Soft Tissue Mobilization left periscapular muscles Body Location L UT focus, L LS Mobilization Type Cross-Friction,Rolling Intensity/Depth Moderate Body Position Supine Comments monitored for pain left post cuff Mobilization Type Cross-Friction,Rolling Intensity/Depth Moderate Body Position Supine Comments monitored for pain left pec Body Location pec minor left shoulder Mobilization Type Cross-Friction Intensity/Depth Moderate Body Position Hooklying Comments monitored for pain Joint Mobilizations Gh mobilizations Joint left GH joint Direction ap and inf Grade II Body Position Hooklying PT-OP-T Assessment and Plan Start: 07/21/23 17:13 Freq: Status: Active Protocol: Document 09/22/23 16:00 DCW (Rec: 09/22/23 16:56 DCW [id number]) Physical Therapy Assessment Impairments Impairments Activity Tolerance,Functional Activities,Functional Mobility ,Pain,Posture,ROM,Soft Tissue Mobility,Strength,Tone Goals Two Impairment Severely limited left shoulder ROM in flexion (92?) and abduction (74?) Armorer Technician Goal (LTG) Pt to improve left shoulder AROM flexion and abduction to > 120? in order to improve ability to perform overhead activities and don/doff jacket without pain LTG Duration 10/19/23 One Impairment Pt does not have an appropriate home exercise program Short Term Goal (STG) Pt to be independent and compliant with an appropriate HEP STG Duration 08/21/23 Assessment Summary Assessment Pt continues to demonstrate good improvement with pain levels and overall mobility. Significant decrease in overall symptoms. Physical Therapy Plan Frequency and Duration Frequency of Treatment 2x/Week Plan of Care Start Date 07/21/23 Plan of Care End Date 10/19/23 Therapeutic Interventions Therapeutic Interventions Home Exercise Program,Joint Mobilizations,Manual Therapy, Neuromuscular Re-education, Patient/Caregiver Education, Self-Care/Home Management,Soft Tissue Mobilization, Therapeutic Activities, Therapeutic Exercises Modalities Cold Pack/Ice Massage,Electric Stimulation,Hot Packs, Ultrasound Next Visit Focus/Plan Next Note Type Treatment Note Next Visit Plan head elevated due to COPD Shoulder AROM/PROM, strengthening, STM
--- NOTE | 2023-09-24 14:30 | PT.OTN ---
Current Diagnoses Pain in left shoulder (09/24/23) Stiffness of left shoulder, not elsewhere classified (09/24/23) Other injury of muscle(s) and tendon(s) of the rotator cuff of left shoulder, subsequent encounter (09/24/23) Physical Therapy Treatment Note PT-OP-A Visit Information Start: 07/21/23 17:13 Freq: Status: Active Protocol: Document 09/24/23 13:50 SP (Rec: 09/24/23 14:50 SP [id number]) Out-Patient Physical Therapy Visit Information Visit Information Visit Type Treatment Note Visit Start Time 13:50 Visit Stop Time 14:30 Visit Number 17 Number of METAL FITTERS AND MACHINISTS Visits 1 Evaluation Information Evaluation Date 07/21/23 Precautions Precautions *Latex allergy* PT-OP-B Current Condition Start: 07/21/23 17:13 Freq: Status: Active Protocol: Document 07/21/23 16:00 DCW (Rec: 07/21/23 17:37 DCW [id number]) Current Condition History of Current Condition Onset Date Two month history Current Complaints Left shoulder pain and immobility History of Current Condition Pt is a 72 year old female presenting with a two month history of left shoulder pain and stiffness. Pt notes insidious onset, no initial injury, but has been worsening the last two months. Pt reports a general soreness rates 1-2/10 at rest, but worse with performing certain activities. Does admit it feels better after getting up and moving it more. Painful to carry anything in her left hand, pain when trying to don/ doff clothes, or attempting to lift her left arm overhead. PT-OP-C Subjective Start: 07/21/23 17:13 Freq: Status: Active Protocol: Document 09/24/23 13:50 SP (Rec: 09/24/23 14:50 SP [id number]) OP-PT Subjective Patient Comments Patient Comments Pt reports doing pretty well with HEP home. Not consisitant bicep in bed. PT-OP-F Manual Assessment Start: 07/21/23 17:13 Freq: Status: Active Protocol: Document 07/21/23 16:00 DCW (Rec: 07/21/23 17:37 DCW [id number]) Manual Assessments Soft Tissue Assessment Soft Tissue Mobility Assessment Tenderness to palpation 3/4: Wincing and withdraw along left supraspinatus, infraspinatus, subscapularis, biceps, upper trap Joint Mobility Assessment Joint Mobility Assessment grinding/popping/rough surface movement with passive left GH mobility PT-OP-K Range of Motion Start: 07/21/23 17:13 Freq: Status: Active Protocol: Document 07/21/23 16:00 DCW (Rec: 07/21/23 17:37 DCW [id number]) Shoulder Goniometric Range of Motion Shoulder Left Passive Shoulder ROM WFL No Testing Position Supine Flexion 125 Abduction 42 Right Active Shoulder ROM WFL No Testing Position Sitting Flexion 112 Abduction 120 External Rotation at 0 degrees Abduction 70 Internal Rotation Behind Back (text) T11 Left Active Shoulder ROM WFL No Testing Position Sitting Flexion 92 Abduction 74 External Rotation at 0 degrees Abduction 38 Internal Rotation Behind Back (text) T11 PT-OP-L Special Tests Start: 07/21/23 17:13 Freq: Status: Active Protocol: Document 07/21/23 16:00 DCW (Rec: 07/21/23 17:37 DCW [id number]) Special Tests Shoulder Special Tests Speed's Biceps Test Results Positive Left Passive ER Rotator Cuff Test Results Positive Left Lift-Off Rotator Cuff Test Results Positive Left Chance [place] Impingement Test Results Positive Left Grind Labrum Test Results Positive Left Empty Can Test Results Positive Left Belly Press Test Results Positive Left AC Joint Compression Test Results Negative PT-OP-M Strength Start: 07/21/23 17:13 Freq: Status: Active Protocol: Document 07/21/23 16:00 DCW (Rec: 07/21/23 17:37 DCW [id number]) Shoulder Strength Shoulder Manual Muscle Testing Left Flexion 2+ Poor+ Abduction (C5) 2+ Poor+ External Rotation 2+ Poor+ Internal Rotation 2+ Poor+ PT-OP-Q Treatments Start: 07/21/23 17:13 Freq: Status: Active Protocol: Document 09/24/23 13:50 SP (Rec: 09/24/23 14:50 SP [id number]) Cardio Equipment Upper Body Ergometer (UBE) Duration (Minutes) 5 RPM 60 Seat Position 12 Height 3.5 Other fwd/bwd Therapeutic Exercises Sitting Exercises Abduction Sitting Exercise Name Shoulder Abduction 70-90deg Side bilateral Equipment Used 2# DB Reps/Minutes x15 ea Comments improve posture, cued head up Overhead press Sitting Exercise Name Overhead press Side bilateral Equipment Used 2# DB Reps/Minutes x10 reps Comments L shld not full range, muscle tiring/pnfree Seated shoulder AROM ER Sitting Exercise Name trialed Side bilateral Resistance 2# DB Equipment Used elbows at side Reps/Minutes 20 Comments cued tall, head up- good muscle tiring, pnfree Standing Exercises FF walk outs (sink) Standing Exercise Name Trunk flexion /c UE OH stretch Side bilateral Reps/Minutes 30 SH x3 reps Comments good feedback stretch, cued hands closer together on TM rail high row Standing Exercise Name seated Side bilateral Resistance DB 2# ulysses Equipment Used front mirror Reps/Minutes 2X10 Comments cued tall, head up, elbows high, wt close to chest Pec Stretch Standing Exercise Name ABD/ ER Side left Equipment Used doorframe Reps/Minutes 30 SH x2 Comments good stretch response vs straigh arm wall slide flexion Standing Exercise Name Wall Slide - scaption/pec Side left Reps/Minutes X10 Comments Verbal cues to step to the wall, lift off step back and lower Other Exercises BodyBlade Other Exercise Name Shoulder: fwd punch, down punch, OH punch, IR/ER elbow bent at side Side left Resistance Yellow Reps/Minutes 30 sec each direction Comments cued tall posture Manual Therapy Treatment Soft Tissue Mobilization left periscapular muscles Body Location L UT focus, L LS Mobilization Type Cross-Friction,Rolling Intensity/Depth Moderate Body Position hooklying elevated wedge Comments monitored no pain left post cuff Body Location SA, lat, prox tricep Mobilization Type Cross-Friction,Rolling Intensity/Depth Moderate Body Position hooklying elevated wedge Comments monitored and no pain, pre AAROM PNF D2 flexion- improved almost full range into FF. left pec Body Location pec minor left shoulder Mobilization Type Cross-Friction Intensity/Depth Moderate Body Position hooklying elevated wedge Comments monitored no pain PT-OP-T Assessment and Plan Start: 07/21/23 17:13 Freq: Status: Active Protocol: Document 09/24/23 13:50 SP (Rec: 09/24/23 14:50 SP [id number]) Physical Therapy Assessment Goals Two Impairment Severely limited left shoulder ROM in flexion (92?) and abduction (74?) Edge Bander Hand Goal (LTG) Pt to improve left shoulder AROM flexion and abduction to > 120? in order to improve ability to perform overhead activities and don/doff jacket without pain LTG Duration 10/19/23 One Impairment Pt does not have an appropriate home exercise program Short Term Goal (STG) Pt to be independent and compliant with an appropriate HEP STG Duration 08/21/23 Assessment Summary Assessment Pt tolerated ther ex well with good effort and improved endurance, only rest break x2 seated. Cues for breath during body blade allow progress timing. Pt not significant reports pain this tx, only end range wall stretching. Ended with manual with improved L shld PROM FF approx 170 deg, monitored tolerance. Physical Therapy Plan Frequency and Duration Frequency of Treatment 2x/Week Plan of Care Start Date 07/21/23 Plan of Care End Date 10/19/23 Therapeutic Interventions Therapeutic Interventions Home Exercise Program,Joint Mobilizations,Manual Therapy, Neuromuscular Re-education, Patient/Caregiver Education, Self-Care/Home Management,Soft Tissue Mobilization, Therapeutic Activities, Therapeutic Exercises Modalities Cold Pack/Ice Massage,Electric Stimulation,Hot Packs, Ultrasound Next Visit Focus/Plan Next Note Type Treatment Note Next Visit Plan *Head elevated due to COPD&CHF . Monitor effort endurance, rest breaks needed. Recheck sink stretch for AAROM FF, declined HO. PT POC: Shoulder AROM/PROM, strengthening, STM
--- NOTE | 2023-09-28 14:48 | PT-OP ANOTE ---
Pt DNS for today's appt, thought updated appt was at 1315 as automated systems called her to report. When spoke to her on way back from [place] stated program scheduler spoke upstated appt at 1515 not 1430 and not having schedule infront of her to verify assumed what heard. 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 Pt has another appt Th so declined off opening tomorrow 09/28 and can't tolerated back to back appt dates, need recovery day between.
--- NOTE | 2023-09-30 15:56 | PT.OTN ---
Current Diagnoses Pain in left shoulder (09/30/23) Stiffness of left shoulder, not elsewhere classified (09/30/23) Other injury of muscle(s) and tendon(s) of the rotator cuff of left shoulder, subsequent encounter (09/30/23) Physical Therapy Treatment Note PT-OP-A Visit Information Start: 07/21/23 17:13 Freq: Status: Active Protocol: Document 09/30/23 15:15 DCW (Rec: 09/30/23 15:56 DCW [id number]) Out-Patient Physical Therapy Visit Information Visit Information Visit Type Treatment Note Visit Start Time 15:15 Visit Stop Time 16:00 Visit Number 18 Number of HEAD NECK SURGEON Visits 0 Evaluation Information Evaluation Date 07/21/23 Precautions Precautions *Latex allergy* PT-OP-B Current Condition Start: 07/21/23 17:13 Freq: Status: Active Protocol: Document 07/21/23 16:00 DCW (Rec: 07/21/23 17:37 DCW [id number]) Current Condition History of Current Condition Onset Date Two month history Current Complaints Left shoulder pain and immobility History of Current Condition Pt is a 72 year old female presenting with a two month history of left shoulder pain and stiffness. Pt notes insidious onset, no initial injury, but has been worsening the last two months. Pt reports a general soreness rates 1-2/10 at rest, but worse with performing certain activities. Does admit it feels better after getting up and moving it more. Painful to carry anything in her left hand, pain when trying to don/ doff clothes, or attempting to lift her left arm overhead. PT-OP-C Subjective Start: 07/21/23 17:13 Freq: Status: Active Protocol: Document 09/30/23 15:15 DCW (Rec: 09/30/23 15:56 DCW [id number]) OP-PT Subjective Patient Comments Patient Comments PT notes that she ordered 2# weights for home, which just arrived today. PT-OP-F Manual Assessment Start: 07/21/23 17:13 Freq: Status: Active Protocol: Document 07/21/23 16:00 DCW (Rec: 07/21/23 17:37 DCW [id number]) Manual Assessments Soft Tissue Assessment Soft Tissue Mobility Assessment Tenderness to palpation 3/4: Wincing and withdraw along left supraspinatus, infraspinatus, subscapularis, biceps, upper trap Joint Mobility Assessment Joint Mobility Assessment grinding/popping/rough surface movement with passive left GH mobility PT-OP-K Range of Motion Start: 07/21/23 17:13 Freq: Status: Active Protocol: Document 07/21/23 16:00 DCW (Rec: 07/21/23 17:37 DCW [id number]) Shoulder Goniometric Range of Motion Shoulder Left Passive Shoulder ROM WFL No Testing Position Supine Flexion 125 Abduction 42 Right Active Shoulder ROM WFL No Testing Position Sitting Flexion 112 Abduction 120 External Rotation at 0 degrees Abduction 70 Internal Rotation Behind Back (text) T11 Left Active Shoulder ROM WFL No Testing Position Sitting Flexion 92 Abduction 74 External Rotation at 0 degrees Abduction 38 Internal Rotation Behind Back (text) T11 PT-OP-L Special Tests Start: 07/21/23 17:13 Freq: Status: Active Protocol: Document 07/21/23 16:00 DCW (Rec: 07/21/23 17:37 DCW [id number]) Special Tests Shoulder Special Tests Speed's Biceps Test Results Positive Left Passive ER Rotator Cuff Test Results Positive Left Lift-Off Rotator Cuff Test Results Positive Left Chance Ventura Impingement Test Results Positive Left Grind Labrum Test Results Positive Left Empty Can Test Results Positive Left Belly Press Test Results Positive Left AC Joint Compression Test Results Negative PT-OP-M Strength Start: 07/21/23 17:13 Freq: Status: Active Protocol: Document 07/21/23 16:00 DCW (Rec: 07/21/23 17:37 DCW [id number]) Shoulder Strength Shoulder Manual Muscle Testing Left Flexion 2+ Poor+ Abduction (C5) 2+ Poor+ External Rotation 2+ Poor+ Internal Rotation 2+ Poor+ PT-OP-Q Treatments Start: 07/21/23 17:13 Freq: Status: Active Protocol: Document 09/30/23 15:15 DCW (Rec: 09/30/23 15:56 DCW [id number]) Cardio Equipment Upper Body Ergometer (UBE) Duration (Minutes) 5 RPM 60 Seat Position 12 Height 3 Other fwd/bwd Therapeutic Exercises Standing Exercises PNF Standing Exercise Name UE PNF Flexion D1/D2 Side bilateral Resistance 2# DB Comments Performed sitting Manual Therapy Treatment Soft Tissue Mobilization left periscapular muscles Body Location L UT focus, L LS Mobilization Type Cross-Friction,Rolling Intensity/Depth Moderate Body Position Supine Comments monitored for pain left post cuff Mobilization Type Cross-Friction,Rolling Intensity/Depth Moderate Body Position Supine Comments monitored for pain left pec Body Location pec minor left shoulder Mobilization Type Cross-Friction Intensity/Depth Moderate Body Position Hooklying Comments monitored for pain Joint Mobilizations Gh mobilizations Joint left GH joint Direction ap and inf Grade II Body Position Hooklying PT-OP-T Assessment and Plan Start: 07/21/23 17:13 Freq: Status: Active Protocol: Document 09/30/23 15:15 DCW (Rec: 09/30/23 15:56 DCW [id number]) Physical Therapy Assessment Impairments Impairments Activity Tolerance,Functional Activities,Functional Mobility ,Pain,Posture,ROM,Soft Tissue Mobility,Strength,Tone Goals Two Impairment Severely limited left shoulder ROM in flexion (92?) and abduction (74?) Classified Advertising Clerk Goal (LTG) Pt to improve left shoulder AROM flexion and abduction to > 120? in order to improve ability to perform overhead activities and don/doff jacket without pain 09/30/23 - L Flexion 114? and Abduction 93? LTG Duration 11/14/23 One Impairment Pt does not have an appropriate home exercise program Short Term Goal (STG) Pt to be independent and compliant with an appropriate HEP STG Duration 10/25/23 Assessment Summary Assessment Pt progressing well, nearing time for appropriate discharge . Should benefit from 2-3 additional appointments over the next few weeks to ensure transition to HEP goes smoothly. Physical Therapy Plan Frequency and Duration Frequency of Treatment 1x/Week Plan of Care Start Date 09/30/23 Plan of Care End Date 11/14/23 Therapeutic Interventions Therapeutic Interventions Home Exercise Program,Joint Mobilizations,Manual Therapy, Neuromuscular Re-education, Patient/Caregiver Education, Self-Care/Home Management,Soft Tissue Mobilization, Therapeutic Activities, Therapeutic Exercises Modalities Cold Pack/Ice Massage,Electric Stimulation,Hot Packs, Ultrasound Next Visit Focus/Plan Next Note Type Treatment Note Next Visit Plan *Head elevated due to COPD&CHF . Monitor effort endurance, rest breaks needed. Recheck sink stretch for AAROM FF, declined HO. PT POC: Shoulder AROM/PROM, strengthening, STM
--- NOTE | 2023-09-30 15:56 | PT.OPPOC ---
Physical, Occupational & Speech Therapy At [facility] Current Diagnoses Pain in left shoulder (09/30/23) Stiffness of left shoulder, not elsewhere classified (09/30/23) Other injury of muscle(s) and tendon(s) of the rotator cuff of left shoulder, subsequent encounter (09/30/23) Visit Care Team Role Provider Type Deisi Benedict DO Attending Provider Physician Family Provider Primary Care Provider Referring Provider Specialty: Medical Address: [address] [place] [address], [address], [place], [address] Email: [email or web address] Plan Of Care PT-OP-T Assessment and Plan Start: 07/21/23 17:13 Freq: Status: Active Protocol: Document 09/30/23 15:15 DCW (Rec: 09/30/23 15:56 DCW [id number]) Physical Therapy Assessment Impairments Impairments Activity Tolerance,Functional Activities,Functional Mobility ,Pain,Posture,ROM,Soft Tissue Mobility,Strength,Tone Goals Two Impairment Severely limited left shoulder ROM in flexion (92?) and abduction (74?) Mcc Goal (LTG) Pt to improve left shoulder AROM flexion and abduction to > 120? in order to improve ability to perform overhead activities and don/doff jacket without pain 09/30/23 - L Flexion 114? and Abduction 93? LTG Duration 11/14/23 One Impairment Pt does not have an appropriate home exercise program Short Term Goal (STG) Pt to be independent and compliant with an appropriate HEP STG Duration 10/25/23 Assessment Summary Assessment Pt progressing well, nearing time for appropriate discharge . Should benefit from 2-3 additional appointments over the next few weeks to ensure transition to HEP goes smoothly. Physical Therapy Plan Frequency and Duration Frequency of Treatment 1x/Week Plan of Care Start Date 09/30/23 Plan of Care End Date 11/14/23 Therapeutic Interventions Therapeutic Interventions Home Exercise Program,Joint Mobilizations,Manual Therapy, Neuromuscular Re-education, Patient/Caregiver Education, Self-Care/Home Management,Soft Tissue Mobilization, Therapeutic Activities, Therapeutic Exercises Modalities Cold Pack/Ice Massage,Electric Stimulation,Hot Packs, Ultrasound Next Visit Focus/Plan Next Note Type Treatment Note Next Visit Plan *Head elevated due to COPD&CHF . Monitor effort endurance, rest breaks needed. Recheck sink stretch for AAROM FF, declined HO. PT POC: Shoulder AROM/PROM, strengthening, STM Plan of Care Dates Plan of Care Start Date 09/30/23 Plan of Care End Date 11/14/23 Electronically Signed by: Robbin Mason, PT 09/30/23 9625 If you are in agreement with this Plan of Care, please return a signed and dated copy. I have reviewed this Plan of Care and certify that the skilled therapy services above are required to meet the patient?s needs. Physician Signature Date Printed Name and Credentials Clinical Instructor Signature Printed Name and Credentials
--- NOTE | 2023-10-06 13:52 | PT.OTN ---
Current Diagnoses Pain in left shoulder (10/06/23) Stiffness of left shoulder, not elsewhere classified (10/06/23) Other injury of muscle(s) and tendon(s) of the rotator cuff of left shoulder, subsequent encounter (10/06/23) Physical Therapy Treatment Note PT-OP-A Visit Information Start: 07/21/23 17:13 Freq: Status: Active Protocol: Document 10/06/23 13:00 AB (Rec: 10/06/23 13:52 AB [id number]) Out-Patient Physical Therapy Visit Information Visit Information Visit Type Treatment Note Visit Note ccess Code: [id number] Visit Start Time 13:02 Visit Stop Time 13:44 Visit Number 19 Number of ENDLESS BED DRUM SANDER Visits 1 Evaluation Information Evaluation Date 07/21/23 Precautions Precautions *Latex allergy* PT-OP-B Current Condition Start: 07/21/23 17:13 Freq: Status: Active Protocol: Document 07/21/23 16:00 DCW (Rec: 07/21/23 17:37 DCW [id number]) Current Condition History of Current Condition Onset Date Two month history Current Complaints Left shoulder pain and immobility History of Current Condition Pt is a 72 year old female presenting with a two month history of left shoulder pain and stiffness. Pt notes insidious onset, no initial injury, but has been worsening the last two months. Pt reports a general soreness rates 1-2/10 at rest, but worse with performing certain activities. Does admit it feels better after getting up and moving it more. Painful to carry anything in her left hand, pain when trying to don/ doff clothes, or attempting to lift her left arm overhead. PT-OP-C Subjective Start: 07/21/23 17:13 Freq: Status: Active Protocol: Document 10/06/23 13:00 AB (Rec: 10/06/23 13:52 AB [id number]) OP-PT Subjective Patient Comments Patient Comments Patient reports the range of motion is better, pain is better. Patient comments her motion on the right side has improved also. Patient reports she can carry things in the left hand without it killing me. 111 deg AROM left shoulder flexion start of session. Patient reports she has not been doing the sink stretch at home. PT-OP-F Manual Assessment Start: 07/21/23 17:13 Freq: Status: Active Protocol: Document 07/21/23 16:00 DCW (Rec: 07/21/23 17:37 DCW [id number]) Manual Assessments Soft Tissue Assessment Soft Tissue Mobility Assessment Tenderness to palpation 3/4: Wincing and withdraw along left supraspinatus, infraspinatus, subscapularis, biceps, upper trap Joint Mobility Assessment Joint Mobility Assessment grinding/popping/rough surface movement with passive left GH mobility PT-OP-K Range of Motion Start: 07/21/23 17:13 Freq: Status: Active Protocol: Document 07/21/23 16:00 DCW (Rec: 07/21/23 17:37 DCW [id number]) Shoulder Goniometric Range of Motion Shoulder Left Passive Shoulder ROM WFL No Testing Position Supine Flexion 125 Abduction 42 Right Active Shoulder ROM WFL No Testing Position Sitting Flexion 112 Abduction 120 External Rotation at 0 degrees Abduction 70 Internal Rotation Behind Back (text) T11 Left Active Shoulder ROM WFL No Testing Position Sitting Flexion 92 Abduction 74 External Rotation at 0 degrees Abduction 38 Internal Rotation Behind Back (text) T11 PT-OP-L Special Tests Start: 07/21/23 17:13 Freq: Status: Active Protocol: Document 07/21/23 16:00 DCW (Rec: 07/21/23 17:37 DCW [id number]) Special Tests Shoulder Special Tests Speed's Biceps Test Results Positive Left Passive ER Rotator Cuff Test Results Positive Left Lift-Off Rotator Cuff Test Results Positive Left Chance Ventura Impingement Test Results Positive Left Grind Labrum Test Results Positive Left Empty Can Test Results Positive Left Belly Press Test Results Positive Left AC Joint Compression Test Results Negative PT-OP-M Strength Start: 07/21/23 17:13 Freq: Status: Active Protocol: Document 07/21/23 16:00 DCW (Rec: 07/21/23 17:37 DCW [id number]) Shoulder Strength Shoulder Manual Muscle Testing Left Flexion 2+ Poor+ Abduction (C5) 2+ Poor+ External Rotation 2+ Poor+ Internal Rotation 2+ Poor+ PT-OP-Q Treatments Start: 07/21/23 17:13 Freq: Status: Active Protocol: Document 10/06/23 13:00 AB (Rec: 10/06/23 13:52 AB [id number]) Therapeutic Exercises Supine Exercises AA shoulder flexion Side bilateral Reps/Minutes X10 Sidelying Exercises sidelying shoulder ER AROM Side left Reps/Minutes X10 Comments Verbal and tactile cues Sitting Exercises Seated shoulder AROM ER Sitting Exercise Name Also PROM body over UE Side left Reps/Minutes 10 X10 each exercise Comments Verbal cues Standing Exercises wall slide flexion Standing Exercise Name Wall Slide -flexion Side left Reps/Minutes X10 Comments Verbal cues to step to the wall, lift off step back and lower Manual Therapy Treatment Soft Tissue Mobilization left periscapular muscles Body Location UT levator scap, lat Mobilization Type Cross-Friction,Rolling Intensity/Depth Moderate Body Position Supine Comments monitored for pain left post cuff Mobilization Type Cross-Friction,Rolling Body Position Supine Comments monitored for pain left pec Body Location pec minor left shoulder Mobilization Type Cross-Friction Intensity/Depth Moderate Body Position Hooklying Comments monitored for pain Joint Mobilizations scapular mobilization Joint left UE Direction depression and adduction Grade IV Reps/Duration X10 each Gh mobilizations Joint left GH joint Direction ap and inf Grade IV Body Position Hooklying Reps/Duration 3X10 each Manual Techniques PROM left shoulder ER Reps/Duration contract relax X3 PT-OP-T Assessment and Plan Start: 07/21/23 17:13 Freq: Status: Active Protocol: Document 10/06/23 13:00 AB (Rec: 10/06/23 13:52 AB [id number]) Physical Therapy Assessment Goals Two Impairment Severely limited left shoulder ROM in flexion (92?) and abduction (74?) Shelter Goal (LTG) Pt to improve left shoulder AROM flexion and abduction to > 120? in order to improve ability to perform overhead activities and don/doff jacket without pain 09/30/23 - L Flexion 114? and Abduction 93? LTG Duration 11/14/23 One Impairment Pt does not have an appropriate home exercise program Short Term Goal (STG) Pt to be independent and compliant with an appropriate HEP STG Duration 10/25/23 Assessment Summary Assessment Patient reported feeling dizzy post standing up from supine, BP right UE seated 123/70 HR 69, checked standing 126/73 HR 69. 113 deg AROM left shoulder flexion end of session, rating pain 1/10 left shoulder. Physical Therapy Plan Frequency and Duration Frequency of Treatment 1x/Week Plan of Care Start Date 09/30/23 Plan of Care End Date 11/14/23 Next Visit Focus/Plan Next Note Type Treatment Note Next Visit Plan *Head elevated due to COPD&CHF . Monitor effort endurance, rest breaks needed. PT POC: Shoulder AROM/PROM, strengthening, STM Next: possibly review/condense HEP as able.
--- NOTE | 2023-10-11 11:09 | PT.OTN ---
Current Diagnoses Pain in left shoulder (10/11/23) Stiffness of left shoulder, not elsewhere classified (10/11/23) Other injury of muscle(s) and tendon(s) of the rotator cuff of left shoulder, subsequent encounter (10/11/23) Physical Therapy Treatment Note PT-OP-A Visit Information Start: 07/21/23 17:13 Freq: Status: Active Protocol: Document 10/11/23 10:30 DCW (Rec: 10/11/23 11:09 DCW [id number]) Out-Patient Physical Therapy Visit Information Visit Information Visit Type Discharge Summary Visit Start Time 10:30 Visit Stop Time 11:00 Visit Number 20 Number of TRUMPET PLAYER Visits 0 Evaluation Information Evaluation Date 07/21/23 Precautions Precautions *Latex allergy* PT-OP-B Current Condition Start: 07/21/23 17:13 Freq: Status: Active Protocol: Document 07/21/23 16:00 DCW (Rec: 07/21/23 17:37 DCW [id number]) Current Condition History of Current Condition Onset Date Two month history Current Complaints Left shoulder pain and immobility History of Current Condition Pt is a 72 year old female presenting with a two month history of left shoulder pain and stiffness. Pt notes insidious onset, no initial injury, but has been worsening the last two months. Pt reports a general soreness rates 1-2/10 at rest, but worse with performing certain activities. Does admit it feels better after getting up and moving it more. Painful to carry anything in her left hand, pain when trying to don/ doff clothes, or attempting to lift her left arm overhead. PT-OP-C Subjective Start: 07/21/23 17:13 Freq: Status: Active Protocol: Document 10/11/23 10:30 DCW (Rec: 10/11/23 10:35 DCW [id number]) OP-PT Subjective Patient Comments Patient Comments It's feeling good. I don't have any pain when I wake up, I'm able to take the trash out . PT-OP-F Manual Assessment Start: 07/21/23 17:13 Freq: Status: Active Protocol: Document 10/11/23 10:30 DCW (Rec: 10/11/23 10:46 DCW [id number]) Manual Assessments Soft Tissue Assessment Soft Tissue Mobility Assessment No tenderness to palpation of paraspcapulars or biceps Joint Mobility Assessment Joint Mobility Assessment grinding/popping/rough surface movement with passive left GH mobility PT-OP-K Range of Motion Start: 07/21/23 17:13 Freq: Status: Active Protocol: Document 10/11/23 10:30 DCW (Rec: 10/11/23 10:46 DCW [id number]) Shoulder Goniometric Range of Motion Shoulder Right Active Shoulder ROM WFL No Testing Position Sitting Flexion 128 Abduction 130 External Rotation at 0 degrees Abduction 70 Internal Rotation Behind Back (text) T8 Left Active Shoulder ROM WFL No Testing Position Sitting Flexion 114 Abduction 101 External Rotation at 0 degrees Abduction 56 Internal Rotation Behind Back (text) T8 PT-OP-L Special Tests Start: 07/21/23 17:13 Freq: Status: Active Protocol: Document 10/11/23 10:30 DCW (Rec: 10/11/23 10:46 DCW [id number]) Special Tests Shoulder Special Tests Speed's Biceps Test Results Negative Passive ER Rotator Cuff Test Results Tightness Lift-Off Rotator Cuff Test Results Negative Chance Ventura Impingement Test Results Tightness Grind Labrum Test Results Positive Left Empty Can Test Results Negative Belly Press Test Results Negative AC Joint Compression Test Results Negative PT-OP-M Strength Start: 07/21/23 17:13 Freq: Status: Active Protocol: Document 07/21/23 16:00 DCW (Rec: 07/21/23 17:37 DCW [id number]) Shoulder Strength Shoulder Manual Muscle Testing Left Flexion 2+ Poor+ Abduction (C5) 2+ Poor+ External Rotation 2+ Poor+ Internal Rotation 2+ Poor+ PT-OP-Q Treatments Start: 07/21/23 17:13 Freq: Status: Active Protocol: Document 10/11/23 10:30 DCW (Rec: 10/11/23 11:09 DCW [id number]) Cardio Equipment Upper Body Ergometer (UBE) Duration (Minutes) 5 RPM 60 Seat Position 12 Height 3 Other fwd/bwd Manual Therapy Treatment Soft Tissue Mobilization left periscapular muscles Body Location UT levator scap, lat Mobilization Type Cross-Friction,Rolling Intensity/Depth Moderate Body Position Supine Comments monitored for pain left pec Body Location pec minor left shoulder Mobilization Type Cross-Friction Intensity/Depth Moderate Body Position Hooklying Comments monitored for pain PT-OP-T Assessment and Plan Start: 07/21/23 17:13 Freq: Status: Active Protocol: Document 10/11/23 10:30 DCW (Rec: 10/11/23 11:09 DCW [id number]) Physical Therapy Assessment Impairments Impairments Activity Tolerance,Functional Activities,Functional Mobility ,Pain,Posture,ROM,Soft Tissue Mobility,Strength,Tone Goals Two Impairment Severely limited left shoulder ROM in flexion (92?) and abduction (74?) Manager Corporate Responsibility Goal (LTG) Pt to improve left shoulder AROM flexion and abduction to > 120? in order to improve ability to perform overhead activities and don/doff jacket without pain 09/30/23 - L Flexion 114? and Abduction 93? LTG Duration Improving One Impairment Pt does not have an appropriate home exercise program Short Term Goal (STG) Pt to be independent and compliant with an appropriate HEP STG Duration Met Assessment Summary Assessment Pt showing improvement overall , not quite met goals for left shoulder AROM, however pt feeling comfortable with her independent HEP, and has massage therapy scheduled to help with tone management. Patient and therapist agreeable to discharge at this time. Physical Therapy Plan Frequency and Duration Frequency of Treatment 1x/Week Plan of Care Start Date 09/30/23 Plan of Care End Date 11/14/23 Therapeutic Interventions Therapeutic Interventions Home Exercise Program,Joint Mobilizations,Manual Therapy, Neuromuscular Re-education, Patient/Caregiver Education, Self-Care/Home Management,Soft Tissue Mobilization, Therapeutic Activities, Therapeutic Exercises Modalities Cold Pack/Ice Massage,Electric Stimulation,Hot Packs, Ultrasound Discharge Physical Therapy Discharge Comments D/c to independent HEP Next Visit Focus/Plan Next Note Type Discharge Summary
== END 2023-11-09 11:28 ==
LOC: PHYS 10:30
PROVIDERS: Family Provider Family Medicine; PCP Family Medicine; Referring Provider Family Medicine; Visit Provider Family Medicine
DX: M25.512 Pain in left shoulder (principal); M25.612 Stiffness of left shoulder, not elsewhere classified; S46.092D Other injury of muscle(s) and tendon(s) of the rotator cuff of left shoulder, subsequent encounter
CPT/HCPCS: 97110; 97112; 97140; 97163

== ENCOUNTER 2023-11-01 17:50 | Emergency (ER) | payer MEDICARE, SELFPAY ==
[2023-11-01 17:56] VITALS: BP 113/52; PULSE 69; RESP 16; TEMP 37.1; O2SAT 91; BMI 37.3
--- NOTE | 2023-11-01 18:14 | PC.NURSE ---
Pt reports having muscle aches and taking a lorazepam in the evening along with 40mg of melatonin. She then went to sit on the toilet, fell asleep, and woke up sitting on the toilet. Pt attempted to stand when her left leg was still asleep and her left leg could not support her. Pt fell on her left knee with small scratch to left knee. She is unsure how she hurt her right knee. She describes difficulty raising her right knee without extreme 12/10 pain in her right knee. 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 Pt states she does not usually take lorazepam with melatonin.
--- NOTE | 2023-11-01 18:31 | ED.LOWEXIN ---
HPI - Extremity Injury (Lower) General Chief Complaint: Extremity Injury, Lower Stated Complaint: rt knee inj/fell Time Seen by Provider: 11/01/23 18:03 Source: patient Mode of arrival: Family Vehicle History of Present Illness HPI Narrative: 72-year-old female sustained right knee injury 36 hours ago. She recalls at her home falling asleep on the toilet at 3:00 a.m. in the morning Wednesday, her left leg fell asleep, she tried to get up from the toilet, slipped, twisting her right knee as she fell to the right-hand side, sustaining right-sided knee pain, particular the inner aspect. She had small abrasion to her left knee which otherwise does not feel very uncomfortable, no left knee swelling. She denies pain to distal foreleg, ankles, feet, toes. She denies pain in her hips, and thighs. She did recall glancing against her right shoulder but does not have pain. She denies pain to her head, face, neck, upper back, lower back, chest, abdomen, pelvis. She has been taking Tylenol for pain that now is not helping, can not take ibuprofen. Related Data Home Medications Medication Instructions Recorded Confirmed cyanocobalamin (vitamin B-12) 1,000 mcg PO DAILY 09/17/17 09/03/23 1,000 mcg tablet (Vitamin B-12) omega-3 fatty acids 1,000 mg 1,000 mg PO DAILY 11/12/17 09/03/23 capsule (Fish Oil Concentrate) diphenhydramine HCl 25 mg capsule 25 mg PO BEDTIME PRN 07/29/18 09/03/23 (Benadryl) Previous Rx's Medication Instructions Recorded triamcinolone acetonide 0.1 % 1 applictn topical BID #15 grams 06/16/19 topical cream nebulizers (AeroEclipse II #1 ea 03/19/20 Nebulizer) albuterol sulfate 2.5 mg/3 mL 2.5 mg (3 mL) inhalation Q4H PRN 11/07/20 (0.083 %) solution for nebulization shortness of breath or wheezing #90 mL blood-glucose meter (Blood Glucose #1 ea 02/10/21 Monitoring kit) albuterol sulfate 90 mcg/actuation 2 puff inhalation Q4H PRN 03/17/22 aerosol inhaler (Ventolin HFA) shortness of breath #8.5 grams Disabled Parking Permit #1 ea 06/19/22 blood sugar diagnostic (Blood #250 ea 06/19/22 Glucose Test strips) lancets 33 gauge (BD Ultra Fine #250 ea 06/19/22 Lancets) budesonide 0.5 mg/2 mL suspension See Rx Instructions inhalation 02/02/23 for nebulization DAILY #360 mL lorazepam 1 mg tablet 1 mg PO ONCE PRN panic #30 tabs 03/05/23 potassium chloride 20 mEq 20 meq PO DAILY #90 tabs 06/17/23 tablet,extended release ipratropium 0.5 mg-albuterol 3 mg 3 ml inhalation Q4H PRN for 08/03/23 (2.5 mg base)/3 mL nebulization wheezing #1,620 mL soln sertraline 100 mg tablet 100 mg PO DAILY #90 tabs 08/03/23 dexamethasone 1 mg tablet 1 - 2 mg (1 - 2 x 1 mg) PO DAILY 09/03/23 Asthma exacerbation #6 tabs furosemide 20 mg tablet (Lasix) 20 mg PO QAM #90 tabs 09/03/23 montelukast 10 mg tablet 10 mg PO DAILY #90 tabs 09/03/23 (Singulair) Allergies Allergy/AdvReac Type Severity Reaction Status Date / Time aspartame Allergy Severe rash, Verified 09/03/23 15:33 throat 'closes off' ibuprofen Allergy Severe FEELS LIKE Verified 09/03/23 15:33 THROAT CLOSES, RASH latex Allergy Severe SEVERE RASH Verified 09/03/23 15:33 orange Allergy Severe SWELLING - Verified 09/03/23 15:33 MANDERIAN cephalexin Allergy Mild severe Verified 09/03/23 15:33 vomiting and diarrhea pneumococcal vaccine Allergy Mild local skin Verified 09/03/23 15:33 [PNEUMOCOCCAL VACCINE] reaction tetanus immune globulin Allergy Mild LOCALIZED Verified 09/03/23 15:33 SWELLING, RASH tetanus toxoid, adsorbed AdvReac Severe SWELLING Verified 09/03/23 15:33 OF EXT, RASH bupropion AdvReac Mild UNCONTROLABLE Verified 09/03/23 15:33 CRYING nickel AdvReac Mild ITCHY RASH Verified 09/03/23 15:33 WITH METAL JEWELRY adhesive AdvReac Unknown RASH Verified 09/03/23 15:33 flu shot Allergy Mild local Uncoded 09/03/23 15:33 reaction-skin red Review of Systems Review of Systems Narrative: per HPI Patient History Medical History (Updated 11/01/23 @ 19:22 by Ajay Werner MD) COVID-19 (~01/12/23) Iron deficiency anemia Family history of breast cancer Tobacco use disorder (10/26/13) Pancreatic pseudocyst Abnormal CXR (chest x-ray) (2014) Union-Schlatter's disease of both lower extremities Shoulder pain (1979) Fractures (1975) Foot pain Measles (~1955) Mumps (~1955) Rubella (~1955) Psoriasis (1973) Eczema (1964) Anxiety (1967) Asthma (2013) COPD (chronic obstructive pulmonary disease) (2013) Antiphospholipid antibody syndrome (2014) Cataract (2014) Painful menstrual periods (1991) History of heavy periods (1991) Pulmonary embolism (05/2014) Pancreatitis (2003) GI bleeding (2014) Type 2 diabetes mellitus without complication, without long-term current use of insulin (05/22/16) Gastrointestinal hemorrhage (07/02/14) Pulmonary thromboembolism (07/02/14) Surgical History History of cataract surgery (2014) Anesthesia S/P insertion of IVC (inferior vena caval) filter (05/2014) Status post hysterectomy (1993) Status post delivery (1987) Status post delivery (1984) Status post delivery (1974) History of tonsillectomy (1955) Status post laparoscopic cholecystectomy (2006) Family History Father Lung cancer Heart disease Mother Cancer Diabetes mellitus Heart disease Grandfather MVA (motor vehicle accident) Grandmother MVA (motor vehicle accident) Grandfather No problems noted. Grandmother No problems noted. Social History Smoking Status: Former smoker eating out: 1-3 times/week Type(s) of exercise: none Smoking Status: Former smoker Exam Narrative Exam Narrative: GENERAL: Well-developed patient, in mild distress. HEAD: Atraumatic. Normocephalic. EYES: Pupils equal round and reactive. Extraocular motions intact. No scleral icterus. No injection or drainage. ENT: Nose without bleeding, purulent drainage. Throat without erythema, tonsillar hypertrophy or exudate. Airway patent. NECK: Trachea midline. Non tender CARDIOVASCULAR: Regular rate and rhythm without murmurs, gallops, or rubs. RESPIRATORY: Clear to auscultation. Breath sounds equal bilaterally. No wheezes, rales, or rhonchi. GASTROINTESTINAL: Abdomen soft, non-tender, nondistended. EXTREMITIES: Small superficial abrasion to the left patellar tendon, no mediolateral joint line tenderness left knee, no gross effusion, no peripatellar or prepatellar tenderness. She has some small effusion to the right knee, right medial joint line tenderness, no lateral joint line tenderness, no patellar abrasions or prepatellar effusion, no tenderness along the patellar tendon or its insertion. Gaye's right knee with good end point. We did not test for laxity due to discomfort. No skin changes around the right knee. No tenderness to distal foreleg, ankles, feet, toes. No hip area tenderness right or left. No right upper extremity shoulder area deformity, bruising, tenderness. She has normal range of motion upper extremities. Limited range of motion right knee due to pain. No edema or joint tenderness. BACK: Nontender without deformity or crepitance. No flank tenderness. NEURO: AOx3. SKIN: No rash or erythema of visible areas Initial Vital Signs Initial Vital Signs: Vital Signs Temperature 98.8 F 11/01/23 17:56 Pulse Rate 69 11/01/23 17:56 Respiratory Rate 16 11/01/23 17:56 Blood Pressure 113/52 L 11/01/23 17:56 Pulse Oximetry 91 11/01/23 17:56 Oxygen Delivery Method Room Air 11/01/23 17:56 Course Orders Ordered: ED Orders 11/01/23 18:30 XR knee RT 3V Stat Discontinued Medications Tramadol HCl (Tramadol 50 Mg Tablet) 50 mg PO NOW ONE Stop: 11/01/23 19:17 Last Admin: 11/01/23 19:25 Dose: 50 mg Documented By: Tramadol HCl (Tramadol 50 Mg Prepack) 1 bottle MISC DIRECTED ONE Stop: 11/01/23 19:18 Last Admin: 11/01/23 19:25 Dose: 1 bottle Documented By: AB Vital Signs Vital signs: Vital Signs - 8 hr 11/01/23 17:56 11/01/23 19:14 11/01/23 19:16 Temperature 98.8 F Pulse Rate 69 74 73 Respiratory Rate 16 Blood Pressure 113/52 L Pulse Oximetry 91 88 L 88 L Oxygen Delivery Method Room Air 11/01/23 19:16 11/01/23 19:30 11/01/23 19:31 Temperature Pulse Rate 68 68 Respiratory Rate Blood Pressure 127/91 H Pulse Oximetry 89 L 89 L Oxygen Delivery Method 11/01/23 19:31 Temperature Pulse Rate Respiratory Rate Blood Pressure 116/58 L Pulse Oximetry Oxygen Delivery Method MDM - Extremity Injury (Lower) Imaging Data Extremity x-ray #1: Radiologist's Impression: [address] [address] XRay Report Signed Patient: Afia Richards MR#: [id number] : 1950 Acct:[id number] Age/Sex: 72 / F Date of Service: 11/01/23 Loc: ED Accession Number: [id number] Procedure: XR knee RT 3V Ordering Provider: Ajay Werner MD PROCEDURE: XR KNEE RT 3V INDICATIONS: fall. right knee pain TECHNIQUE: 3 views of the knee were acquired. COMPARISON: [facility], , KNEE 3V LEFT, 10/14/2015, 11:17. FINDINGS: Bones: No fractures or dislocations. Mild tricompartmental osteoarthritis is seen. No suspicious bony lesions. Soft tissues: Small suprapatellar joint effusion is seen. No suspicious soft tissue calcifications. IMPRESSION: No acute right knee fracture or dislocation. Mild tricompartmental osteoarthritis and small joint effusion. Dictated by: Rajesh Benito M.D. on 11/01/2023 at 19:09 Approved by: Rajesh Benito M.D. on 11/01/2023 at 19:09 [facility] Narrative Medical decision making narrative: Ground level fall 36 hours ago at home, falling to the right-hand side, right knee pain since that time, some right knee medial joint line tenderness on exam, possible ligamentous injury. X-ray without obvious fracture. Placed in knee immobilizer. Crutches and nonweightbearing. Follow up with Orthopedic surgery advised. She can not take ibuprofen. She has pain despite Tylenol. Oral tramadol dose given, home pack tramadol for discharge. Follow up with Orthopedic surgery advised. Return precautions discussed. Home with family/friends Discharge Plan Departure Patient Disposition: Home Clinical Impression: Right knee sprain, Abrasion of left knee Activity Restrictions/Additional Instructions: 72-year-old with fall from getting up from toilet seat 36+ hours ago, persisting right knee pain, right knee medial joint line tenderness on exam, worrisome for ligamentous injury. Screening x-ray without obvious fracture. Superficial abrasion to the left anterior knee, use topical antibiotics for that. Right knee placed in knee immobilizer, crutches and nonweightbearing for now to protect the knee. Follow up with Orthopedic surgery advised. Contact information provided for Clinic, call their office tomorrow morning to arrange close follow up. History of ibuprofen allergy noted. Home pack of tramadol to take if needed, otherwise use Tylenol for pain control. Ice the knee as tolerated. Return earlier if you have change worsening symptoms or any concerns prior Prescriptions: No Action triamcinolone acetonide 0.1 % cream 1 applictn TOP BID Qty: 15 0RF (DME) AeroEclipse II Nebulizer [facility] [place] See Rx Instructions .ROUTE .MEDSUPPLY Qty: 1 0RF Rx Instructions: As directed albuterol sulfate 2.5 mg /3 mL (0.083 %) solution for nebulization 2.5 mg INHALATION Q4H PRN (Reason: shortness of breath or wheezing) Qty: 90 1RF Rx Instructions: For continued SOB, Cough and wheezing you can take albuterol every 2-4 hours in between your duoneb breathing treatments albuterol sulfate [Ventolin HFA] 90 mcg/actuation HFA aerosol inhaler 2 puff Inhalation Q4H PRN (Reason: shortness of breath) Qty: 8.5 3RF budesonide 0.5 mg/2 mL suspension for nebulization See Rx Instructions inhalation DAILY Qty: 360 1RF Dose Instruction: INHALE 1 VIAL VIA NEBULIZER TWICE DAILY Rx Instructions: INHALE 1 VIAL VIA NEBULIZER TWICE DAILY inhalation daily; ipratropium-albuterol 0.5 mg-3 mg(2.5 mg base)/3 mL solution for nebulization 3 ml inhalation Q4H PRN (Reason: for wheezing) Qty: 1620 0RF sertraline 100 mg tablet 100 mg PO DAILY Qty: 90 0RF omega-3 fatty acids [Fish Oil Concentrate] 1,000 mg capsule 1,000 mg PO DAILY (DME) blood-glucose meter [Blood Glucose Monitoring] Kit See Rx Instructions .ROUTE .MEDSUPPLY Qty: 1 0RF Rx Instructions: As directed to test 4 times daily (DME) Blood Glucose Test Strip See Rx Instructions .ROUTE .MEDSUPPLY Qty: 250 3RF Rx Instructions: As directed, test blood sugar 4 times daily (DME) lancets [BD Ultra Fine Lancets] 33 gauge misc See Rx Instructions .ROUTE .MEDSUPPLY Qty: 250 3RF Rx Instructions: As directed use to test blood sugar 4 times daily (DME) Disabled Parking Permit See Rx Instructions .ROUTE .MEDSUPPLY Qty: 1 0RF Rx Instructions: Valid for 5 years lorazepam 1 mg tablet 1 mg PO ONCE PRN (Reason: panic) Qty: 30 0RF diphenhydramine HCl [Benadryl] 25 mg capsule 25 mg PO BEDTIME PRN potassium chloride 20 mEq tablet extended release 20 meq PO DAILY Qty: 90 0RF dexamethasone 1 mg tablet 1 - 2 mg PO DAILY Qty: 6 0RF montelukast [Singulair] 10 mg tablet 10 mg PO DAILY Qty: 90 1RF furosemide [Lasix] 20 mg tablet 20 mg PO QAM Qty: 90 1RF cyanocobalamin (vitamin B-12) [Vitamin B-12] 1,000 mcg Tablet 1,000 mcg PO DAILY Referrals: Jaycob Fajardo MD [Physician] - Deisi Benedict DO [Primary Care Provider] - Stand Alone Forms: Patient Portal/API
[2023-11-01 19:14] VITALS: PULSE 74; O2SAT 88
[2023-11-01 19:16] VITALS: BP 127/91; PULSE 73; O2SAT 88
[2023-11-01] MEDS: TRAMADOL 50 MG PREPACK 1 BOTTLE MISC (19:25)
[2023-11-01] MEDS: TRAMADOL 50 MG TABLET PO (19:25)
[2023-11-01 19:30] VITALS: PULSE 68; O2SAT 89
[2023-11-01 19:31] VITALS: BP 116/58; PULSE 68; O2SAT 89
== END 2023-11-01 20:01 | disposition home or self-care (01) ==
PROVIDERS: Emergency Provider Emergency Medicine; Family Provider Family Medicine; PCP Family Medicine
DX: S83.91XA Sprain of unspecified site of right knee, initial encounter (principal); S80.212A Abrasion, left knee, initial encounter; W18.11XA Fall from or off toilet without subsequent striking against object, initial encounter
CPT/HCPCS: 73562; 99283

== ENCOUNTER → 2024-06-15 08:54 | Outpatient (CLI) | payer MEDICARE, SELFPAY ==
[2024-06-15 10:00] LABS: Add Manual Diff / Slide Review NO; Basophils Absolute Auto 100 /uL (0-100); Eosinophils Absolute Auto 100 /uL (0-450); Eosinophils Percent Auto 1.5 % (2-4); Hematocrit 45.7 % (36-46); Hemoglobin 15.1 g/dL (12.0-16.0); Lymphocytes Absolute Auto 1700 /uL (1100-4500); Lymphocytes Percent Auto 20.3 % (25-40); Mean Corpuscular HGB Conc 32.9 % (30-36); Mean Corpuscular Volume 88.1 fL (80-100); Monocytes Absolute Auto 600 /uL (0-900); Monocytes Percent Auto 6.6 % (3-14); Neutrophils Absolute Auto 6000 /uL (1500-7000); Neutrophils Percent Auto 70.6 % (50-75); Platelet Count 188 X10^3/uL (150-400); Red Blood Cell Count 5.19 X10^6/uL (4.0-5.2); Red Cell Distribution Width 13.9 % (11.6-14.8); White Blood Cell Count 8.5 X10^3/uL (4.5-11.0)
[2024-06-15 10:11] LABS: Alanine Aminotransferase 21 IU/L (<35); Albumin 4.1 g/dL (3.5-5.0); Albumin Globulin Ratio 1.8 (1.0-2.8); Alkaline Phosphatase 80 U/L (38-126); Aspartate Aminotransferase 18 IU/L (14-36); BUN Creatinine Ratio 29.5 (6-22); Bilirubin Total 0.7 mg/dL (0.2-1.3); Blood Urea Nitrogen 13 mg/dL (7-17); Calcium 9.4 mg/dL (8.4-10.2); Carbon Dioxide 30 mmol/L (22-32); Chloride 102 mmol/L (98-107); Estimated Glomerular Filt Rate > 60 mL/min (>60); Globulin 2.3 g/dL (1.7-4.1); Glucose 148 mg/dL (80-110); HEMOLYSIS < 15 (0-50); Potassium 4.4 mmol/L (3.4-5.1); Sodium 138 mmol/L (137-145); Total Protein 6.4 g/dL (6.3-8.2)
== END ==
LOC: LAB 08:55
PROVIDERS: Family Provider Family Medicine; PCP Family Medicine; Referring Provider Family Medicine; Visit Provider Family Medicine
DX: E11.9 Type 2 diabetes mellitus without complications (principal); I10 Essential (primary) hypertension; E78.5 Hyperlipidemia, unspecified
CPT/HCPCS: 36415; 80053; 85025

== ENCOUNTER → 2024-09-08 15:28 | Outpatient (CLI) | payer MEDICARE, SELFPAY ==
--- NOTE | 2024-09-08 15:28 | DI.MG.S_ITS ---
MM screening mammo BI: 09/08/2024. BI-RADS: 1 CLINICAL: 73-year old female for bilateral screening mammogram. Tyrer-Cuzick lifetime risk of 3.9%. Current reported family history of breast cancer: maternal grandmother and mother. PRIOR EXAMS 08/21/2023, 12/14/2019, 09/12/2018, 08/21/2017, 08/27/2015, 08/15/2015. MAMMOGRAPHY TECHNIQUE: 2D and 3D (tomosynthesis) digital mammographic views obtained, with additional images as needed for full coverage. Current study was also evaluated with a Computer Aided Detection (CAD) system. DENSITY A. The breasts are almost entirely fatty. MAMMOGRAPHY FINDINGS Bilateral: No suspicious mass, asymmetry, microcalcification, or other abnormality seen. IMPRESSION: * No evidence of malignancy. RECOMMENDATIONS Bilateral * Annual screening mammography. OVERALL ASSESSMENT CATEGORY BI-RADS-1: Negative. The [employer] recommends annual screening mammography beginning at age 40 for women with average risk of breast cancer. ELECTRONICALLY SIGNED: Reyna Stephens M.D. on 09/11/2024 at 01:07:16 AM PT Interpreting Station ID: [id number]
== END ==
PROVIDERS: Family Provider Family Medicine; PCP Family Medicine; Referring Provider Family Medicine; Visit Provider Family Medicine
DX: Z12.31 Encounter for screening mammogram for malignant neoplasm of breast (principal); R92.313 Mammographic fatty tissue density, bilateral breasts; Z80.3 Family history of malignant neoplasm of breast
CPT/HCPCS: 77063; 77067

== ENCOUNTER → 2024-09-22 08:56 | Outpatient (CLI) | payer MEDICARE, SELFPAY ==
[2024-09-22 10:08] LABS: Alanine Aminotransferase 17 IU/L (<35); Albumin 4.2 g/dL (3.5-5.0); Albumin Globulin Ratio 1.6 (1.0-2.8); Alkaline Phosphatase 77 U/L (38-126); Aspartate Aminotransferase 19 IU/L (14-36); BUN Creatinine Ratio 21.7 (6-22); Bilirubin Total 0.7 mg/dL (0.2-1.3); Blood Urea Nitrogen 10 mg/dL (7-17); Calcium 9.2 mg/dL (8.4-10.2); Carbon Dioxide 29 mmol/L (22-32); Chloride 103 mmol/L (98-107); Cholesterol 252 mg/dL (140-199); Estimated Glomerular Filt Rate > 60 mL/min (>60); Globulin 2.7 g/dL (1.7-4.1); Glucose 146 mg/dL (70-99); HDL Cholesterol 50 mg/dL (40-60); HEMOLYSIS < 15 (0-50); LDL Cholesterol Calculated 179 mg/dL (<100); Potassium 4.1 mmol/L (3.4-5.1); Sodium 138 mmol/L (137-145); Total Protein 6.9 g/dL (6.3-8.2); Triglycerides 113 mg/dL (35-150)
[2024-09-22 10:24] LABS: Vitamin D 25 Hydroxy (D3) 70.2 ng/mL (30.0-100.0)
[2024-09-22 10:33] LABS: Hemoglobin A1C% w Est Avg Glu 6.1 % (4.0-6.0)
[2024-09-23 04:36] LABS: CRP, High Sensitivity 4.52 mg/L (0.00-3.00)
== END ==
PROVIDERS: Family Provider Family Medicine; PCP Family Medicine; Referring Provider Family Medicine; Visit Provider Family Medicine
DX: E11.9 Type 2 diabetes mellitus without complications (principal); E78.5 Hyperlipidemia, unspecified; E55.9 Vitamin D deficiency, unspecified; R25.2 Cramp and spasm
CPT/HCPCS: 36415; 80053; 80061; 82306; 83036; 86140

== ENCOUNTER → 2025-01-23 12:08 | Outpatient (CLI) | payer MEDICARE, SELFPAY ==
[2025-01-23 13:56] LABS: Hemoglobin A1C% w Est Avg Glu 6.4 % (4.0-6.0)
[2025-01-23 13:59] LABS: Microalbumi Creatinin Ratio Ur 18.0 ug/mg CR (<30)
== END ==
PROVIDERS: Family Provider Family Medicine; PCP Family Medicine; Referring Provider Family Medicine; Visit Provider Family Medicine
DX: E11.9 Type 2 diabetes mellitus without complications (principal); I10 Essential (primary) hypertension
CPT/HCPCS: 36415; 82043; 82570; 83036

== ENCOUNTER → 2025-04-02 11:04 | Outpatient (CLI) | payer MEDICARE, SELFPAY ==
[2025-04-02 15:26] LABS: Creatinine, Serum (CRCL) 0.53 mg/dL (0.52-1.04)
[2025-04-02 17:24] LABS: Protein (Total) Urine Random 11 mg/dL (0-12)
== END ==
PROVIDERS: Family Provider Family Medicine; PCP Family Medicine; Referring Provider Family Medicine; Visit Provider Family Medicine
DX: I10 Essential (primary) hypertension (principal)
CPT/HCPCS: 82570; 82575; 84156